=== PATIENT | female | born 1945 | race Caucasian/White ===

== ENCOUNTER 2016-12-28 05:44 | Inpatient (IN) | payer MEDICARE, MEDICAID ==
[~2016-12-28] VITALS: Ht 167.6 cm; Wt 91.0 kg
[2016-12-28] MEDS ORDERED: SOD CHLORIDE 0.9% 500 ML IV STA (06:19)
--- NOTE | 2016-12-28 06:51 | RADRPT ---
PROCEDURE: CT Brain without. CLINICAL INDICATION: Syncope TECHNIQUE: A CT of the brain was performed utilizing axial sections from the skull base through th e vertex without contrast. The scan was reviewed in soft tissue brain and high frequency resolution bone algorithm windows. Images were reviewed on a high-resolution PACS workstation. The exam CTDI = 45.01 mGy, and the DLP = 720.23 mGy-cm. One or more of the following dose reduction techniques w ere used: Automated exposure control, adjustment of the mA and / or kV according to patient size, o r use of iterative reconstruction technique. COMPARISON: None available FINDINGS: The ventricles are normal in size and midline in position. There is no intracranial hemorrhage, mid line shift, or mass effect. No abnormal extra-axial fluid collections are identified. There is min eralization of the basal ganglia. The rodriguez-white differentiation is well preserved. The basal cist erns are patent. Multiple densities are seen within the left cerebellar hemisphere measuring approxi mately 100 HU. The visualized portions of the orbits are unremarkable. The paranasal sinuses and mastoid air cells are clear. No calvarial fracture or abnormality are identified. The soft tissues are unremarkable . IMPRESSION: 1. Multiple small densities within the left cerebellar hemisphere, likely reflecting calcifications , although only measuring approximate 100 HU. Blood products could have a similar appearance. Furt her evaluation with MRI is recommended. 2. Mineralization of the basal ganglia. 3. Otherwise, unremarkable head CT. Findings were discussed with Dr. Crooks on 12/28/2016 6:50:28 AM. RPTAT: HH .Razia Solares MD, MD Date Time Electronically viewed and signed by .Razia Solares MD, MD on 12/28/2016 06:50 .G/
--- NOTE | 2016-12-28 06:58 | RADRPT ---
PROCEDURE: XR Chest. CLINICAL INDICATION: Syncope TECHNIQUE: AP Portable chest. COMPARISON: No pertinent prior examinations were submitted for comparison. FINDINGS: The cardiomediastinal silhouette is normal. The aorta is normal. No focal consolidation, pleural eff usion or pneumothorax is seen. The osseous structures are intact. IMPRESSION: No radiographic evidence of acute cardiopulmonary disease. RPTAT: HCNS Physician Jay Date Time Electronically viewed and signed by Nilton Mcintosh Physician on 12/28/2016 06:58 CS/
[2016-12-28 07:15] LABS: BASOPHILS % 0.2 % (0.0-2.0); HEMATOCRIT 23.1 % (37.0-47.0); HEMOGLOBIN 7.6 g/dl (12.0-16.0); LYMPHOCYTES # 1.7 10^3/ul (0.8-2.9); LYMPHOCYTES % 17.3 % (15.0-51.0); MEAN CORPUSCULAR HEMOGLOBIN 30.3 pg (29.0-33.0); MEAN CORPUSCULAR HGB CONC 32.9 g/dl (32.0-37.0); MEAN PLATELET VOLUME 10.9 fl (7.4-10.4); MONOCYTE # 0.4 10^3/ul (0.3-0.9); MONOCYTES % 4.3 % (0.0-11.0); NUCLEATED RED BLOOD CELLS% 0.2 /100WBC (0.0-0.0); PLATELET COUNT 147 10^3/UL (140-415); RED BLOOD COUNT 2.51 10^6/ul (4.20-5.40); RED CELL DISTRIBUTION WIDTH 14.6 % (11.5-14.5)
--- NOTE | 2016-12-28 07:22 | ERA ---
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 This is a 71-year-old female with a history of hyperlipidemia who presents with syncope versus seizure. The family is somewhat limited historian. They state around midnight the patient got up and was trying to go to the bathroom and fell to the ground. They are unsure if she had syncope. The patient cannot adequately describe what happened. She denied any prodrome of chest pain or shortness of breath. The states that he wanted to bring her to the hospital but she wanted to sleep. Again at 5 AM she felt faint and was helped to the ground. At that time the states that her eyes rolled into the back of her head and she may have had shaking but this lasted less than 1 minute and the patient did not have a postictal state. However at this time the patient is only alert and oriented to person and place. She denies any headache chest pain or shortness of breath , no neck pain. No history of seizures. ROS All systems reviewed and are negative except as per history of present illness. Allergies Allergies: Coded Allergies: No Known Allergy (Unverified , 12/28/16) PMhx/Soc Medical and Surgical Hx: pt denies Surgical Hx Hx Respiratory Disorders: No Hx Cardiac Disorders: Yes (high cholesterol) Hx Psychiatric Problems: No Hx Miscellaneous Medical Probl: No Hx Alcohol Use: No Hx Substance Use: No Hx Tobacco Use: No Smoking Status: Never smoker FmHx Family History: No diabetes Physical Exam Vitals Vital Signs Date Time Temp Pulse Resp B/P Pulse Ox O2 Delivery O2 Flow Rate FiO2 12/28/16 11:52 98.3 64 17 138/74 99 12/28/16 10:00 98.3 63 17 141/77 99 12/28/16 08:00 98.3 68 17 118/71 99 12/28/16 05:58 98.3 98 17 121/73 99 Physical Exam General: Well-developed, no distress, appears to be slightly slow to respond Head: Normocephalic, atraumatic. Eyes: Pupils equally reactive, EOM intact ENT: Moist mucous membranes Neck: Supple, no lymphadenopathy, No midline tenderness, deformities, step-offs to the cervical spine, full active and passive range of motion without midline pain. Respiratory: Lungs clear bilaterally, no distress Cardiovascular: RRR, no murmurs, rubs, or gallops Abdominal: Soft, non-tender, non-distended, no peritoneal signs : Deferred MSK: No edema, no unilateral swelling, 5/5 strength Neurologic: Alert and oriented To person and place appears to be somewhat slow to respond, moving all extremities, normal speech, no focal weakness, no cerebellar signs Skin: No rash, No evidence of blunt head trauma or other blunt trauma to the extremities or thorax Psych: Normal mood Result Diagram: 12/28/1625 12/28/1625 Results 24 hrs Laboratory Tests Test 12/28/16 06:24 12/28/16 06:25 Bedside Glucose 307mg/dL White Blood Count 10.010^3/ul Red Blood Count 2.5110^6/ul Hemoglobin 7.6g/dl Hematocrit 23.1% Mean Corpuscular Volume 92.0fl Mean Corpuscular Hemoglobin 30.3pg Mean Corpuscular Hemoglobin Concent 32.9g/dl Red Cell Distribution Width 14.6% Platelet Count 69874^3/UL Mean Platelet Volume 10.9fl Neutrophils % 77.0% Lymphocytes % 17.3% Monocytes % 4.3% Eosinophils % 0.0% Basophils % 0.2% Nucleated Red Blood Cells % 0.2/100WBC Neutrophils # (Manual) 7.710^3/ul Lymphocytes # 1.710^3/ul Monocytes # 0.410^3/ul Eosinophils # 0.010^3/ul Basophils # 0.010^3/ul Nucleated Red Blood Cells # 0.010^3/ul Prothrombin Time 15.9Sec Prothrombin Time Ratio 1.2 INR International Normalized Ratio 1.26 Activated Partial Thromboplast Time 27.6Sec Sodium Level 144mmol/L Potassium Level 3.9mmol/L Chloride Level 108mmol/L Carbon Dioxide Level 21mmol/L Anion Gap 19 Blood Urea Nitrogen 27mg/dl Creatinine 0.65mg/dl Glucose Level 294mg/dl Calcium Level 8.5mg/dl Ammonia 21umol/l Troponin I < 0.012ng/ml Free Thyroxine Index 1.02ug/ml Thyroxine (T4) 3.7ug/dl Triiodothyronine (T3) Uptake 27.6% Ethyl Alcohol Level < 10.0mg/dl Current Medications Medications (Trade) Dose Ordered Sig/Yamilka Route PRN Reason Start Time Stop Time Status Last Admin Dose Admin Sodium Chloride (NS) 500 ml @ 500 mls/hr Q1H STAT IV 12/28/16 06:19 12/28/16 07:18 DC 12/28/16 07:23 Ondansetron HCl (Zofran Inj) 4 mg ER BRIDGE PRN IV NAUSEA AND/OR VOMITING 12/28/16 12:00 12/29/16 11:59 Acetaminophen (Tylenol Tab) 650 mg ER BRIDGE PRN PO MILD PAIN/FEVER 12/28/16 12:00 12/29/16 11:59 Procedures/MDM EKG, MONITORS, & DIAGNOSTIC IMAGING: EKG: I reviewed and interpreted a 12-lead EKG. Rhythm: Normal sinus rhythm Ectopy: None Intervals: No abnormalities ST segments: No elevations or depressions T waves: No contiguous inversions Chest x-ray: I reviewed and interpreted a 1 view of the chest Mediastinum: No enlargement Cardiac silhouette: No cardiomegaly Airspace: Clear lung espinal bilaterally without evidence of pneumothorax Bones: No evidence of fracture CT brain: IMPRESSION: 1. Multiple small densities within the left cerebellar hemisphere, likely reflecting calcifications, although only measuring approximate 100 HU. Blood products could have a similar appearance. Further evaluation with MRI is recommended. 2. Mineralization of the basal ganglia. 3. Otherwise, unremarkable head CT. Findings were discussed with Dr. Crooks on 12/28/2016 6:50:28 AM. MRI brain IMPRESSION: 1. 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 2. No acute infarct. RPTAT: EE LAB INTERPRETATION: Anemia MEDICAL DECISION MAKING: The patient presents with syncope versus seizure. History is somewhat limited and difficult to ascertain. However, the patient does seem somewhat confused. Seizure remains on the differential. She has never had a seizure before. No fevers to suggest meningitis. Patient has no evidence of blunt head trauma or C -spine injury. CT of the brain will need needed. Additionally concern for possible syncope. Patient does have anemia. Family has reported some melanotic stools in the past but none recently. She denies any hematemesis. This is likely subacute process. Unclear if this is related to her syncopal episode recently. At this time no evidence of active GI bleed. Hemodynamics are stable. The patient CT brain shows calcifications versus hemorrhage. Given the patient' s potential fall and MRI of the brain has been requested by radiology. I believe this is reasonable. Given low concern for acute intracranial hemorrhage I will hold on neurosurgery consultation until MRI is complete. A Stat MRI has been ordered. The radiologist stated that this is more likely calcification and unlikely to be hemorrhage. ER COURSE: The patient did have an episode of melanotic stool here in the emergency room. She has no hematemesis. No history of peptic ulcer disease or alcohol. The patient does have anemia but is hemodynamically stable. At this time no indication for transfusion. Continue to monitor. No indication for CT of the abdomen and pelvis that she has a benign abdominal exam. The patient will likely benefit from GI consultation as an inpatient with endoscopy and colonoscopy. The patient did have a CT brain that was questionable for possible hemorrhage however MRI shows no acute process. I kept the patient and/or family informed of laboratory and diagnostic imaging results throughout the emergency room course. DISPOSITION PLAN: Telemetry admission for management of syncope CONSULTATION: Accepting care team and consultations: I discussed the current laboratory data, diagnostic imaging and emergency care provided. Admitting team: Dr. Linder Admitting team indication: Insurance directed Consulting services: Nonemergent GI consultation by admitting team] Departure Diagnosis: Primary Impression: Syncope Qualified Code: R55 - Syncope, unspecified syncope type Additional Impressions: Anemia Qualified Code: D64.9 - Anemia, unspecified type GI bleed Qualified Code: K92.2 - Gastrointestinal hemorrhage, unspecified gastrointestinal hemorrhage type Condition: Stable KITTY CROOKS MD Dec 28, 2016 07:22
[2016-12-28 07:31] LABS: INR 1.26; PROTIME 15.9 Sec (12.2-14.2); PT RATIO 1.2
[2016-12-28 07:32] LABS: PARTIAL THROMBOPLASTIN TIME 27.6 Sec (25.0-35.0)
[2016-12-28 07:34] LABS: ANION GAP 19 (8-16); BLOOD UREA NITROGEN 27 mg/dl (7-20); CALCIUM 8.5 mg/dl (8.4-10.2); CARBON DIOXIDE 21 mmol/L (21-31); CHLORIDE 108 mmol/L (97-110); CREATININE 0.65 mg/dl (0.44-1.00); GLUCOSE 294 mg/dl (70-220); POTASSIUM 3.9 mmol/L (3.5-5.1); SODIUM 144 mmol/L (135-144)
[2016-12-28 07:41] LABS: ETHANOL < 10.0 mg/dl
[2016-12-28 07:48] LABS: TROPONIN-I < 0.012 ng/ml (0.00-0.12)
[2016-12-28 08:15] LABS: T3 UPTAKE 27.6 % (23.5-40.5)
--- NOTE | 2016-12-28 11:00 | RADRPT ---
PROCEDURE: MR Brain without intravenous contrast CLINICAL INDICATION: Syncope. Stroke. COMPARISON: CT 12/28/2016. TECHNIQUE: Multiplanar multi-sequence images of the brain were obtained. Images acquired on a 3.0 T esla magnet. FINDINGS: Parenchyma: There is a developmental venous the left cerebellar hemisphere extending to the area of calcification and density seen on CT. Given the presence of a developmental venous anomaly, this de nsity may represent a cavernous malformation. No acute hemorrhage, infarction, or mass. Mild amount of periventricular and subcortical white matter FLAIR hyperintensity, a nonspecific finding often a ssociated with chronic microangiopathy. The basal ganglia are mineralized. Ventricles: Mild generalized volume with proportionate ex vacuo ventricular dilation. . Extra-axial spaces: No herniation or midline shift. Orbits: Normal. Major intracranial flow voids: Preserved. Paranasal sinuses: Clear. Mastoids and middle ears: Clear. Bones: Normal. Extracranial soft tissues: Normal. Additional comment: None. IMPRESSION: 1. Developmental venous anomaly and probable cavernous malformation within the left cerebellar matthew sphere. 2. No acute infarct. RPTAT: EE Physician Steven Date Time Electronically viewed and signed by Physician Steven on 12/28/2016 10:43 LG/
[2016-12-28] MEDS ORDERED: ACETAMINOPHEN 325 MG TAB PO PRN (12:00)
[2016-12-28] MEDS ORDERED: ONDANSETRON 4 MG INJ IV PRN ×2 (12:00→13:00)
[2016-12-28] MEDS: morphine 2 MG INJ IV PRN (12:42)
--- NOTE | 2016-12-28 12:47 | HP ---
Date/Time of Note Date/Time of Note DATE: 12/28/16 TIME: 12:47 Assessment/Plan VTE Prophylaxis VTE Prophylaxis Intervention: SCD's Assessment/Plan Assessment/Plan This a 71-year-old female who was brought to the emergency room after patient fell on her abdomen with feeling weak with possible seizure-like activities and hematemesis. 1. GI bleed/hematemesis/hematochezia. Rule out etiology like ulcers vs varices vs hemorrhoids vs others -Strict n.p.o., IV fluids, IV Protonix and serial H&H monitor and transfuse as indicated. Hemoglobin 7.6, however we are going to proceed with 1 unit of PRBC as she is having active bleeding at this time. -Obtain CT abd/pelvis and Consult GI for endoscopy/colonoscopy evaluation -Hold anticoagulants 2. Normocytic anemia, likely Acute on chronic anemia 2/2 blood loss anemia secondary to #1. -Treatment as per above. We will also obtain iron panel. 3. Status post fall on abdomen with Syncope Vs Presyncope -Rule out syncopal etiologies-Neurogenic vs cardiac. CT/MRI negative for stroke. Rule out -We will obtain contrast CT of abdomen and chest to rule out any acute organ/ vessel injury -EEG and neuro consult 4. History of Dyslipidemia, off treatment. Will obtain lipid panel and treat accordingly. 5. Hyperglycemia. Rule out DM. -Add A1C to AM labs (prior transfusion) and treat accordingly -Insulin while in house. 6. Questionable encephalopathy,mild. -F/u with CT abdomen and EEG. 7. Obesity. Will advise on therapeutic lifestyle changes upon discharge. Also obtain A1c. VT prophylaxis: SCDs PUD prophylaxis: Protonix Plan: Patient will be admitted to inpatient telemetry floor. She will have serial H&H monitor and will transfuse as indicated. Patient will have GI evaluation and neurology evaluation in-house. We will also obtain EEG to rule out any seizures. We will also continue neurochecks and place patient on a seizure precaution. We will also obtain a.m. baseline labs. Of the management depend on clinical course, further studies and input from consultants. Approximately 60 minutes was spent on this history and physical. Case discussed with . HPI/ROS Admit Date/Time Admit Date/Time Hx of Present Illness This is a 71-year-old female who is also a poor historian with past medical history of mild dyslipidemia, who was brought by paramedics to the emergency room after patient fell on her abdomen and feeling weak and tired afterwards. Patient is somewhat encephalopathic on presentation and is not able to provide much information . She cannot adequately give any history and she is unsure whether she lost consciousness or not. History collected from spouse. As per patient's , she had one-time episode of bloody vomiting and seizure-like activities her eyes rolled into the back of her head with mild shaking which lasted less than a minute. Patient did not have any chest pain, palpitation, shortness of breath, or headache. She denied hitting her head. After the fall , patient continued to have excruciating abdominal pain. Patient did not have any history of anemia or seizures. She denied any history of diabetes or other medical illness. In the emergency room, patient had episode of bloody stool. Initial labs showed hemoglobin 7.6, hematocrit 23.1, BUN 27, glucose 307 . Chest x-ray negative for any acute cardiopulmonary disease. Brain CT with Multiple small densities within the left cerebellar hemisphere, likely reflecting calcifications, although only measuring approximate 100 HU and an MRI was recommended. MRI brain showed no acute infarct, hemorrhage or mass. 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 Vital signs within defined limits. ` ROS A 12 point review of system was assessed and is negative other than what is mentioned in HPI. PMH/Family/Social Past Medical History See HPI Past Surgical History See HPI Social History Denied any history of alcohol, smoking or illicit drug use. Smoking Status: Never smoker Exam/Review of Systems Vital Signs Vitals Vital Signs Date Time Temp Pulse Resp B/P Pulse Ox O2 Delivery O2 Flow Rate FiO2 12/28/16 11:52 98.3 64 17 138/74 99 Exam Exam General: Obese female, not in any acute distress . HEENT: Normocephalic, Atraumatic, No laceration or hematoma; Eyes: PEERL, Conjunctiva clear, Anicteric sclera Neck: Supple without any lymphadenopathy, nontender, no JVD, no carotid bruits, trachea midline, no thyromegaly Cardiac: S1, S2 auscultated, regular rhythm and rate, no mumurs or gallop Pulmonary: Normal respiratory effort. Chest clear to auscultation bilaterally, no adventitious breath sounds GI: Abdomen obese to inspection. Soft, non tender, non- distended, no masses, no rebound tenderness or guarding. Bowel sounds active on all four quadrants Genitourinary: Deferred Extremities: No cyanosis, clubbing, or edema. Pulses [2+] bilaterally. Full ROM on all four extremities. No focal weakness appreciated. Neurologic: Awake and orientedx2- Mildly confused. Skin: Dry, and intact. No ecchymosis, no rashes, or lesions Labs Result Diagram: 12/28/1662412/28/16624 Medications Medications Current Medications Morphine Sulfate (morphine) 2 mg Q4H PRN IV PAIN Last administered on t 12:42; Admin Dose 2 MG; Start 12/28/16 at 12:30 MARVA MENA NP Dec 28, 2016 12:47
[2016-12-28] MEDS ORDERED: NACL 0.9% 3 ML SYG IV SCH (13:00)
[2016-12-28] MEDS ORDERED: morphine 2 MG INJ IV PRN (13:00)
[2016-12-28] MEDS ORDERED: IOHEXOL 300MG/ML 150 ML BTL ONE (14:17)
[2016-12-28] MEDS ORDERED: SOD CHLORIDE 0.9% 100 ML ONE (14:17)
[2016-12-28] MEDS ORDERED: SOD CHLORIDE 0.9% 250 ML IV* ONE (14:43)
--- NOTE | 2016-12-28 15:11 | RADRPT ---
PROCEDURE: CT Chest, Abdomen and Pelvis. CLINICAL INDICATION: Fall with chest and abdominal pain TECHNIQUE: CT scan of the chest, abdomen, and pelvis with contrast was performed on the [employer] [address] scanner. The patient was scanned following the uncomplicated intravenous administra tion of 100 cc of Omnipaque-300 intravenous contrast. Coronal and sagittal reformatted images were obtained from the axial source images. The images were reviewed on a high-resolution PACS workstatio n. The CTDI vol is 15.32 mGy and the DLP is 1152.06 mGy-cm. COMPARISON: None. FINDINGS: CT chest: Mild bibasilar atelectasis is seen. No focal opacification, effusion, pneumothorax, edema, or nodule s are seen. There is no acute infiltrate. The mediastinum is unremarkable without evidence for mass or lymphadenopathy. The vascular structur es of the mediastinum are normal in course and caliber. No abnormally enlarged lymph nodes in the m ediastinum or hilum is seen. The heart size is normal without evidence for pericardial thickening o r effusion. The axillary regions, subpectoral regions, and supraclavicular regions are all unremarka ble. Diffuse osteopenia is seen. Degenerative spondylosis of the thoracic spine is seen. Collateral vessels are seen in the gastroesophageal region. CT abdomen: The liver is without intrahepatic biliary dilatation. Cirrhotic liver morphology is seen. The liver is heterogeneous in attenuation. An ill-defined mass is suggested in the right hepatic lobe measur ing 3.2 x 3.1 cm in size. A recanalized periumbilical vein is seen. The portal vein is patent. The spleen is normal in size and homogeneous in density. Collateral vessels are seen in the gastrohepat ic region. The stomach is grossly unremarkable. The pancreas as visualized is normal. The gallbla dder wall is thickened and is nonspecific in appearance. No common bile duct dilatation is seen. T he adrenal glands are symmetric and normal. The kidneys are symmetrically unremarkable as well. No renal calculus or obstructive uropathy or mass lesion is seen. The aorta is of normal caliber. Aort ic calcifications are seen. . There is no retroperitoneal lymphadenopathy. The petty hepatis region is clear. The large bowel is stool-filled. Sigmoid diverticulosis is seen without evidence of diverticulitis. The small and large bowel and mesentery, as visualized, are otherwise unremarkable. The normal appendix is identified. CT pelvis: The uterus is absent. The pelvic sidewalls and inguinal regions are clear. The urinary bladder is unremarkable. No mass, lymphadenopathy, or free fluid is seen. No acute inflammation is seen. Diff use osteopenia is seen. Degenerative spondylosis of the lumbar spine is seen. No osteolytic or oste oblastic lesion is detected. IMPRESSION: 1. Cirrhosis with evidence of portal hypertension as characterized by collateral vessels as detaile d above. 2. Heterogeneous liver with the suggestion of an ill-defined mass in the right hepatic lobe which i n the setting of a cirrhotic liver is worrisome for hepatocellular carcinoma. Further evaluation wi th a dynamic contrast-enhanced MRI of the liver is suggested. 3. Stool filled large bowel. 4. Nonspecific gallbladder wall thickening. 5. Sigmoid diverticulosis without evidence of diverticulitis. RPTAT: HPNM Physician Kareen Date Time Electronically viewed and signed by Physician Kareen on 12/28/2016 15:11 /
[2016-12-28] MEDS: INSULIN ASPART [NOVOLOG] 3 ML PEN SC SCH ×2 (16:53→21:50)
[2016-12-28] MEDS: SOD CHLORIDE 0.9% 1,000 ML IV SCH (17:15)
--- NOTE | 2016-12-28 18:11 | RADRPT ---
Echocardiogram Report Patient Name: NOREEN MARIE Gender: Female Date: 1945 Study Date: 28-Dec-2016 Billboard Poster Helper: Wilner [facility] Location: [facility] [place] Ref. Physician: MARVA MENA Quality: Adequate Procedures: Transthoracic echocardiogram with complete 2D, M-Mode, and doppler examination. Indications: Syncope. 2D/M Mode Doppler Measurement Value Normal Ranges Measurement Value Normal Ranges LVIDd 2D 4.0 3.5 - 5.6 cm AV Peak Fredy 1.7 m/sec LVIDs 2D 2.7 2.1 - 4.1 cm AV Peak PG 12.0 mmHg FS 2D 32.0 % LVOT Peak Fredy 1.0 m/sec LVPWd 2D 1.3 0.6 - 1.1 cm LVOT Peak PG 4.0 mmHg IVSd 2D 1.3 0.6 - 1.1 cm MV E Peak Fredy 0.7 m/sec IVS/LVPW 2D 1.0 MV A Peak Fredy 0.8 m/sec AoR Diam 2D 2.4 2.0 - 3.7 cm MV E/A 1.0 LA/Ao 2D 1 0 - 1 MV Decel Time 204 msec EDV 2D 62.6 cm3 MV E/A 1.0 ESV 2D 19.7 cm3 LA Dimen 2D 2.6 2.3 - 4.0 cm Findings Left Ventricle: Normal left ventricular systolic function. Normal left ventricular cavity size. Mild concentric left ventricular hypertrophy. Ejection fraction is visually estimated at 60 %. Abnormal Diastolic Function. Right Ventricle: Normal right ventricular size. Normal right ventricular systolic function. Left Atrium: The left atrium is normal in size. Right Atrium: The right atrium is normal in size. Mitral Valve: Mild mitral leaflet calcification. Mild mitral annular calcification. Trace mitral regurgitation. Aortic Valve: Normal appearance of the aortic valve. No significant aortic stenosis or insufficiency. Tricuspid Valve: Normal appearance of the tricuspid valve. Unable to obtain RVSP due to minimal presence of tricuspid regurgitation. There is trace tricuspid regurgitation. Pulmonic Valve: Pulmonic valve not well visualized. There is trace pulmonic regurgitation. Pericardium: Normal pericardium with no significant pericardial effusion. Aorta: Normal aortic root. IVC: Normal size and poor respiratory collapse consistent with elevated right atrial pressure. Conclusions 1.Normal left ventricular systolic function. Normal left ventricular cavity size. Mild concentric left ventricular hypertrophy. Ejection fraction is visually estimated at 60 %. Abnormal Diastolic Function. 2.Mild mitral leaflet calcification. Mild mitral annular calcification. Trace mitral regurgitation. 3.Normal appearance of the tricuspid valve. Unable to obtain RVSP due to minimal presence of tricuspid regurgitation. There is trace tricuspid regurgitation. 4.Pulmonic valve not well visualized. There is trace pulmonic regurgitation. Electronically Signed By: vEgeny Miller 28-Dec-2016 18:10:58 -0700 Patient Name: NOREEN MARIE Study Date: 28-Dec-2016 [id number]
[2016-12-28 18:48] LABS: IRON 155 ug/dl (35-150)
[2016-12-28 18:57] LABS: TOTAL IRON BINDING CAPACITY 317 ug/dl (241-421)
[2016-12-28 19:11] VITALS: TEMP 98.6
[2016-12-28 19:30] LABS: HEMATOCRIT 21.2 % (37.0-47.0); HEMOGLOBIN 7.1 g/dl (12.0-16.0)
[2016-12-28 21:16] VITALS: PULSE 75
[2016-12-28 21:34] VITALS: BP 117/58; RESP 16
[2016-12-28] MEDS: PANTOPRAZOLE 40 MG INJ IV SCH (21:39)
--- NOTE | 2016-12-28 21:47 | CONS ---
Date/Time of Note Date/Time of Note DATE: 12/28/16 TIME: 21:46 Assessment/Plan Assessment/Plan Chief Complaint/Hosp Course neuroconsult dictated [id number]. Thanks Problems: CRISTIAN HOWELL MD Dec 28, 2016 21:47
[2016-12-29] VITALS (12 sets, daily range): BP systolic 106–144; BP diastolic 53–67; PULSE 51–67; RESP 16–19; Ht 167.6 cm; Wt 91.0 kg
[2016-12-29] MEDS: SOD CHLORIDE 0.9% 1,000 ML IV SCH ×2 (01:10→13:02)
[2016-12-29] MEDS: INSULIN ASPART [NOVOLOG] 3 ML PEN SC SCH ×6 (01:22→21:14)
[2016-12-29] MEDS: ACCU-CHEK XX SCH (01:59)
--- NOTE | 2016-12-29 05:00 | CONS ---
DATE OF ADMISSION: 12/28/2016 DATE OF CONSULTATION: 12/28/2016 HISTORY OF PRESENT ILLNESS: Patient is a 71-year-old lady, who last night got up to go to the bathroom and fell, possible loss of consciousness. When fell, hit her abdominal area against stationary bike. She was weak and had several episodes of bloody vomiting. Patient's son is providing details of the history; a little later in the morning, while on the toilet patient had episode of either fainting or near fainting when she became less responsive, pale, limp, and had a few seconds of crooked face. Per chart, during last episode she has had some mild shaking. Son denied any tremulousness or convulsions. On admission, shows hemoglobin 7.6, hematocrit 23. BUN 27, glucose 307. MRI of the brain shows no acute abnormality, developmental venous anomalies and cavernous malformations. CAT scan of the head was done as well. PAST MEDICAL HISTORY: Dyslipidemia. According to the son, the patient has occasional forgetfulness. SOCIAL HISTORY: No alcohol, tobacco, or drug use. FAMILY HISTORY: Noncontributory. LABORATORY: Patient had EKG which showed normal sinus rhythm. Patient has no previous history of seizures or syncope. Rest of her blood work was within normal limits. PT 15.9, PTT 27. Tox screen negative for alcohol. MEDICATION: The patient was put here on: 1. Protonix. 2. Insulin. 3. Zofran. 4. Morphine. Patient has no complaints currently. PHYSICAL EXAMINATION: VITAL SIGNS: Today, 98.6 temperature, 77 pulse, 18 respiration, 115/65 blood pressure. GENERAL APPEARANCE: The patient is not in acute distress. Lying in bed. HEENT: Normocephalic and atraumatic head. No carotid bruit, lymphadenopathy or thyromegaly. LUNGS: Clear to auscultation bilaterally. HEART: Normal cardiac rhythm and sounds. ABDOMEN: Soft. EXTREMITIES: No cyanosis, clubbing, or edema. NEUROLOGIC: She is awake, alert, and oriented x1. On several questioning, she was able to state that she is in some medical clinic, but she is not oriented to place, further or to time. Fluent speech. Cranial nerve examination shows intact visual espinal bilaterally. Pupils round and reactive to light from 3-2 mm bilaterally. Extraocular movements intact without nystagmus. Symmetrical face. Preserved facial strength and sensation. Tongue was in midline. Palate elevates symmetrically. Motor strength preserved in all extremities. Normal bulk, tone, and strength. Sensory examination intact to light touch and pain. Deep tendon reflexes 2+ upper extremities and knees. Absent ankle jerks. Equivocal corresponds to plantar stimulation bilaterally. Coordination is preserved on [id number] testing. No dysmetria or tremor. Gait was not assessed. IMPRESSION: Several episodes of syncope/presyncope associated with hematemesis, dehydration and severe anemia. Unlikely to be primary seizures. Electroencephalogram mildly abnormal secondary to generalized slowing consistent with encephalopathy, but no epileptiform activity was seen. Continue current treatment. Thank you much for this interesting consultation. Dictated By: Ish Alberot MD /girma/jong /Document#: [id number] CARLOS MANUEL
--- NOTE | 2016-12-29 05:20 | PRO ---
DATE OF PROCEDURE: 12/28/2016 PROCEDURE PERFORMED: EEG. IDENTIFICATION: This is a 71-year-old lady with syncope. DESCRIPTION OF PROCEDURE: Routine EEG was recorded digitally. [id number] and [id number]-[id number] montages were recorded and reviewed. All impedances were measured and recorded. Disc electrodes were placed in accordance to International 10-20 system of electrode placement. FINDINGS: Symmetrically distributed background activity was seen ranging in frequency between 8-9 cycles per second of low to medium amplitude. This activity intermixes or at time replaced by slower waves 4-6 cycles per second. Photic stimulation produces no definite driving. No epileptiform transients were seen. No signs of ongoing electrographic seizures. No lateralized slowing observed. IMPRESSION: Mildly abnormal study secondary to background slowing, which could reflect presence of encephalopathy, possibly toxic metabolic in etiology. Please correlate clinically. Dictated By: Ish Alberto MD /girma/floresita /Document#: [id number]
[2016-12-29] MEDS: PANTOPRAZOLE 40 MG INJ IV SCH (05:26)
[2016-12-29 07:45] LABS: ABNORMAL IP MESSAGE 1; BASOPHILS % 0.3 % (0.0-2.0); EOSINOPHILS # 0.1 10^3/ul (0.0-0.5); EOSINOPHILS % 1.7 % (0.0-7.0); HEMATOCRIT 22.6 % (37.0-47.0); HEMOGLOBIN 7.5 g/dl (12.0-16.0); LYMPHOCYTES # 1.7 10^3/ul (0.8-2.9); LYMPHOCYTES % 28.9 % (15.0-51.0); MEAN CORPUSCULAR HEMOGLOBIN 30.2 pg (29.0-33.0); MEAN CORPUSCULAR HGB CONC 33.2 g/dl (32.0-37.0); MEAN CORPUSCULAR VOLUME 91.1 fl (82.0-101.0); MEAN PLATELET VOLUME 10.5 fl (7.4-10.4); MONOCYTE # 0.3 10^3/ul (0.3-0.9); MONOCYTES % 5.4 % (0.0-11.0); NEUTROPHILS % 62.8 % (39.0-77.0); NUCLEATED RED BLOOD CELLS% 0.3 /100WBC (0.0-0.0); PLATELET COUNT 97 10^3/UL (140-415); RED BLOOD COUNT 2.48 10^6/ul (4.20-5.40); RED CELL DISTRIBUTION WIDTH 15.5 % (11.5-14.5); WHITE BLOOD COUNT 5.9 10^3/ul (4.8-10.8)
[2016-12-29 08:00] LABS: POSITIVE DIFF @See below
[2016-12-29 08:11] LABS: ALBUMIN 2.9 g/dl (3.3-4.9); ALBUMIN/GLOBULIN RATIO 0.85; BILIRUBIN,INDIRECT 0.7 mg/dl (0-1.1); BILIRUBIN,TOTAL 0.7 mg/dl (0.2-1.3); CALCIUM 8.1 mg/dl (8.4-10.2); CHOL/HDL RATIO 5.3 RATIO; CREATININE 0.69 mg/dl (0.44-1.00); MAGNESIUM 2.2 mg/dl (1.7-2.5); POTASSIUM 3.6 mmol/L (3.5-5.1); TOTAL PROTEIN 6.3 g/dl (6.1-8.1)
[2016-12-29 09:15] LABS: THYROID STIMULATING HORMONE 2.67 MIU/L (0.465-4.680)
--- NOTE | 2016-12-29 10:23 | PN ---
Date/Time of Note Date/Time of Note DATE: 12/29/16 TIME: 10:04 Assessment/Plan VTE Prophylaxis VTE Prophylaxis Intervention: SCD's Lines/Catheters IV Catheter Type (from Nrs): Peripheral IV Assessment/Plan Chief Complaint/Hosp Course 1. GI bleed/hematemesis/hematochezia. Rule out etiology including possible variceal bleed(CT with cirrhosis and portal HTN) vs GI ulcers vs hemorrhoids vs others -Strict n.p.o., IV fluids, IV Protonix and serial H&H monitor and transfuse as indicated. -Pending GI for endoscopy/colonoscopy evaluation -Hold anticoagulants 2. Normocytic anemia, likely Acute on anemia of chronic illness 2/2 blood loss anemia secondary to #1. Hemoglobin remains relatively stable at this time. -We will continue to check H&H closely. We will transfuse as indicated. 3. Questionable right hepatic lobe ill-defined mass with #4, concerning for hepatocellular carcinoma. -We will proceed with liver protocol MRI with enhanced contrast. -Obtain AFP, Hep panel, tumor markers and consider heme/oncology evaluation. 4.Non-alcoholic Liver Cirrhosis with portal hypertension. No evidence of ascites -F/u GI recs 5. Status post Syncope Vs Presyncope. CT and MRI negative for any acute intracranial pathology. ACS ruled out with serial trops/EKG. Symptoms resolved. EEG with no epileptic activities -f/u neuro recs. 6. 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 A1C 8.1 -DM eval noted. Blood transfusion can alter A1C to yield a false low number but cannot give false "high" result. For that, we are going to obtain a glycosylated albumin which reflects glycemic control over 2-3 weeks. -Consider starting Metformin after contrast studies -Lantus 14 units starting today and titrate based on requirement along with ISS - Wouldn't recommend premeal at this time as patient is being introduced to insulin first time and her blood sugar level has been stabilizing with corrective insulin. 7. Encephalopathy, possibly hepatic. Currently at baseline -Will monitor 8.History of Dyslipidemia, off treatment. Lipid panel noted and will start on Fishoil. LDL under good control. 9. Obesity. Will advise on therapeutic lifestyle changes upon discharge. VT prophylaxis: SCDs PUD prophylaxis: Protonix PLAN:F/u with consultants recs. Monitor HH closely. Case discussed with DR.Rahi Problems: Subjective 24 Hr Interval Summary Free Text/Dictation Patient remains awake and oriented. There is no further upper or lower GI bleed episodes. Hemoglobin remains relatively stable. Exam/Review of Systems Vital Signs Vitals Vital Signs Date Time Temp Pulse Resp B/P Pulse Ox O2 Delivery O2 Flow Rate FiO2 12/29/16 08:16 60 12/29/16 07:54 98.3 18 122/62 98 Intake and Output 12/28/16 12/28/16 12/29/16 15:00 23:00 07:00 Output Total 300 ml Balance -300 ml Exam General: Obese female, not in any acute distress . HEENT: Normocephalic, Atraumatic, No laceration or hematoma; Eyes: PEERL, Conjunctiva clear, Anicteric sclera Neck: Supple without any lymphadenopathy, nontender, no JVD, no carotid bruits, trachea midline, no thyromegaly Cardiac: S1, S2 auscultated, regular rhythm and rate, no mumurs or gallop Pulmonary: Normal respiratory effort. Chest clear to auscultation bilaterally, no adventitious breath sounds GI: Abdomen obese to inspection. Soft, non tender, non- distended, no masses, no rebound tenderness or guarding. Bowel sounds active on all four quadrants Genitourinary: Deferred Extremities: No cyanosis, clubbing, or edema. Pulses [2+] bilaterally. Full ROM on all four extremities. No focal weakness appreciated. Neurologic: Awake and orientedx2- Mildly confused. Skin: Dry, and intact. No ecchymosis, no rashes, or lesions Results Result Diagram: 12/29/16 0709 12/29/16 0709 Results 24 hrs Laboratory Tests Test 12/28/16 15:59 12/28/16 16:25 12/28/16 16:51 12/28/16 19:15 Bedside Glucose 258 H 256 H Iron Level 155 H Total Iron Binding Capacity 317 Percent Iron Saturation 49 Hemoglobin 7.1 L Hematocrit 21.2 L Troponin I < 0.012 Test 12/28/16 21:42 12/28/16 22:52 12/29/16 01:19 12/29/16 05:22 Bedside Glucose 234 H 219 187 Troponin I < 0.012 Test 12/29/16 07:08 12/29/16 07:09 12/29/16 09:42 Hemoglobin A1c 8.1 H Troponin I < 0.012 White Blood Count 5.9 # Red Blood Count 2.48 L Hemoglobin 7.5 L Hematocrit 22.6 L Mean Corpuscular Volume 91.1 Mean Corpuscular Hemoglobin 30.2 Mean Corpuscular Hemoglobin Concent 33.2 Red Cell Distribution Width 15.5 H Platelet Count 97 #L Mean Platelet Volume 10.5 H Neutrophils % 62.8 Lymphocytes % 28.9 Monocytes % 5.4 Eosinophils % 1.7 Basophils % 0.3 Nucleated Red Blood Cells % 0.3 H Neutrophils # (Manual) 3.7 Lymphocytes # 1.7 Monocytes # 0.3 Eosinophils # 0.1 Basophils # 0.0 Nucleated Red Blood Cells # 0.0 Sodium Level 147 H Potassium Level 3.6 Chloride Level 112 H Carbon Dioxide Level 24 Anion Gap 15 Blood Urea Nitrogen 17 # Creatinine 0.69 Glucose Level 166 # Calcium Level 8.1 L Phosphorus Level 3.0 Magnesium Level 2.2 Total Bilirubin 0.7 Direct Bilirubin 0.00 Indirect Bilirubin 0.7 Aspartate Amino Transf (AST/SGOT) 59 H Alanine Aminotransferase (ALT/SGPT) 47 Alkaline Phosphatase 113 Total Protein 6.3 Albumin 2.9 L Globulin 3.40 H Albumin/Globulin Ratio 0.85 Triglycerides Level 261 H Cholesterol Level 160 LDL Cholesterol, Calculated 78 HDL Cholesterol 30 L Cholesterol/HDL Ratio 5.3 Thyroid Stimulating Hormone (TSH) 2.670 Bedside Glucose 185 Medications Medications Current Medications Morphine Sulfate 2 mg 2 mg Q4H PRN IV PAIN Last administered on 12/28/16 12:42 ; Admin Dose 2 MG; Start 12/28/16 at 12:30 Sodium Chloride (NS) 1,000 ml @ 80 mls/hr [id number] IV Last administered on 12/28 17:15; Admin Dose 80 MLS/HR; Start 12/28/16 at 12:40 Ondansetron HCl (Zofran Inj) 4 mg Q6H PRN IV NAUSEA AND/OR VOMITING; Start at 13:00 Morphine Sulfate (morphine) 2 mg Q4H PRN IV SEVERE PAIN LEVEL 7-10; Start 12/28 at 13:00 Pantoprazole (Protonix Iv) 40 mg DAILY@06 IV Last administered on 12/29/16 05: 26; Admin Dose 40 MG; Start 12/28/16 at 17:00 Diagnostic Test (Pha) (Accu-Chek) 1 XX ; Start 12/29/16 at 02:00 Insulin Aspart (Novolog Insulin Pen) NOVOLOG *MILD* ALGORI... Q4 SC Last administered on 12/29/16t 09:50; Admin Dose 2 UNIT; Start 12/28/16 at 17:00 Insulin Glargine (Lantus) 14 unit DAILY@08 SC ; Start 12/30/16 at 08:00 MARVA MENA NP Dec 29, 2016 10:19
[2016-12-29 10:57] LABS: ADD UMIC YES; UR ASCORBIC ACID NEGATIVE (NEGATIVE); UR BACTERIA FEW /HPF (NONE SEEN); UR BILIRUBIN (Dip) NEGATIVE (NEGATIVE); UR BLOOD (Dip) 3+ mg/dL (NEGATIVE); UR CLARITY SLIGHTLY CLOUDY (CLEAR); UR COLOR YELLOW (YELLOW); UR GLUCOSE (Dip) 1+ mg/dL (NEGATIVE); UR KETONES (Dip) NEGATIVE (NEGATIVE); UR LEUKOCYTE ESTERASE (Dip) NEGATIVE Leu/ul (NEGATIVE); UR NITRITE (Dip) NEGATIVE (NEGATIVE); UR RBC 1 /HPF (0-5); UR SPECIFIC GRAVITY (Dip) 1.035 (1.003-1.030); UR SQUAMOUS EPITHELIAL CELL FEW /HPF (FEW); UR TOTAL PROTEIN (Dip) NEGATIVE (NEGATIVE); UR UROBILINOGEN (Dip) 1+ mg/dL (NEGATIVE)
[2016-12-29 11:14] LABS: OPIATES Positive (NEGATIVE)
[2016-12-29 11:15] LABS: BARBITURATES Negative (NEGATIVE); BENZODIAZEPINES Negative (NEGATIVE); CANNABINOIDS Negative (NEGATIVE); COCAINE Negative (NEGATIVE)
[2016-12-29 13:36] LABS: HEMATOCRIT 22.9 % (37.0-47.0); HEMOGLOBIN 7.5 g/dl (12.0-16.0)
--- NOTE | 2016-12-29 14:30 | CONS ---
Date/Time of Note Date/Time of Note DATE: 12/29/16 TIME: 14:19 Assessment/Plan Assessment/Plan Additional Assessment/Plan 71 yo woman with hepatic cirrhosis of unclear etiology. She has some encephalopathy, so history is not entirely clear. There is no clear history of alcohol or hepatitis but I am not confident of the history I am getting now. Endoscopy is being planned for hematochezia but is not yet done. I will send an AFP but I would not use this result alone to diagnose hepatocellular carcinoma or to give treatment. Biopsy would be necessary for that. For now, the acute bleeding issues are more important to address. We will follow with you. Consultation Date/Type/Reason Admit Date/Time Date of Consultation: Dec 29, 2016 Type of Consultation: oncology Reason for Consultation abnormal CT Referring Provider: MARVA MENA NP Hx of Present Illness 71 yo woman with cirrhosis and abnormal area of liver on CT. Hepatocellular cancer raised as part of the differential diagnosis. PMH also notable for hematochezia, anemia, diabetes, obesity, dyslipidemia and weakness. Social History Smoking Status: Never smoker Exam/Review of Systems Vital Signs Vitals Vital Signs Date Time Temp Pulse Resp B/P Pulse Ox O2 Delivery O2 Flow Rate FiO2 12/29/16 12:11 98.4 64 19 130/67 98 Intake and Output 12/28/16 12/28/16 12/29/16 15:00 23:00 07:00 Output Total 300 ml Balance -300 ml Exam Constitutional: alert Head: normocephalic Eyes: other (pallor) ENMT: nl external ears & nose Neck: supple Respiratory: clear to auscultation Cardiovascular: regular rate and rhythm Gastrointestinal: non-tender, other (cannot palpate liver or spleen), soft Musculoskeletal: nl extremities to inspection Results Result Diagram: 12/29/16 1230 12/29/16 0709 Results 24 hrs Laboratory Tests Test 12/28/16 15:59 12/28/16 16:25 12/28/16 16:51 12/28/16 19:15 Bedside Glucose 258 H 256 H Iron Level 155 H Total Iron Binding Capacity 317 Percent Iron Saturation 49 Hemoglobin 7.1 L Hematocrit 21.2 L Troponin I < 0.012 Test 12/28/16 21:42 12/28/16 22:52 12/29/16 01:19 12/29/16 05:22 Bedside Glucose 234 H 219 187 Troponin I < 0.012 Test 12/29/16 07:00 12/29/16 07:08 12/29/16 07:09 12/29/16 09:42 Urine Color YELLOW Urine Clarity SLIGHTLY CLOUDY A Urine pH 6.0 Urine Specific [place] 1.035 H Urine Ketones NEGATIVE Urine Nitrite NEGATIVE Urine Bilirubin NEGATIVE Urine Urobilinogen 1+ H Urine Leukocyte Esterase NEGATIVE Urine Microscopic RBC 1 Urine Microscopic WBC 6 H Urine Squamous Epithelial Cells FEW Urine Bacteria FEW A Urine Hemoglobin 3+ H Urine Glucose 1+ H Urine Total Protein NEGATIVE Urine Opiates Screen Positive Urine Barbiturates Negative Urine Amphetamines Screen Negative Urine Benzodiazepines Screen Negative Urine Cocaine Screen Negative Urine Cannabinoids Negative Hemoglobin A1c 8.1 H Troponin I < 0.012 White Blood Count 5.9 # Red Blood Count 2.48 L Hemoglobin 7.5 L Hematocrit 22.6 L Mean Corpuscular Volume 91.1 Mean Corpuscular Hemoglobin 30.2 Mean Corpuscular Hemoglobin Concent 33.2 Red Cell Distribution Width 15.5 H Platelet Count 97 #L Mean Platelet Volume 10.5 H Neutrophils % 62.8 Lymphocytes % 28.9 Monocytes % 5.4 Eosinophils % 1.7 Basophils % 0.3 Nucleated Red Blood Cells % 0.3 H Neutrophils # (Manual) 3.7 Lymphocytes # 1.7 Monocytes # 0.3 Eosinophils # 0.1 Basophils # 0.0 Nucleated Red Blood Cells # 0.0 Sodium Level 147 H Potassium Level 3.6 Chloride Level 112 H Carbon Dioxide Level 24 Anion Gap 15 Blood Urea Nitrogen 17 # Creatinine 0.69 Glucose Level 166 # Calcium Level 8.1 L Phosphorus Level 3.0 Magnesium Level 2.2 Total Bilirubin 0.7 Direct Bilirubin 0.00 Indirect Bilirubin 0.7 Aspartate Amino Transf (AST/SGOT) 59 H Alanine Aminotransferase (ALT/SGPT) 47 Alkaline Phosphatase 113 Total Protein 6.3 Albumin 2.9 L Globulin 3.40 H Albumin/Globulin Ratio 0.85 Triglycerides Level 261 H Cholesterol Level 160 LDL Cholesterol, Calculated 78 HDL Cholesterol 30 L Cholesterol/HDL Ratio 5.3 Thyroid Stimulating Hormone (TSH) 2.670 Bedside Glucose 185 Test 12/29/16 12:30 12/29/16 12:45 12/29/16 13:05 Hemoglobin 7.5 L Hematocrit 22.9 L Hemoglobin A1c 9.0 H Bedside Glucose 176 Medications Medications Current Medications Morphine Sulfate 2 mg 2 mg Q4H PRN IV PAIN Last administered on 12/28/16 12:42 ; Admin Dose 2 MG; Start 12/28/16 at 12:30 Sodium Chloride (NS) 1,000 ml @ 80 mls/hr [id number] IV Last administered on 12/29 13:02; Admin Dose 80 MLS/HR; Start 12/28/16 at 12:40 Ondansetron HCl (Zofran Inj) 4 mg Q6H PRN IV NAUSEA AND/OR VOMITING; Start at 13:00 Morphine Sulfate (morphine) 2 mg Q4H PRN IV SEVERE PAIN LEVEL 7-10; Start 12/28 at 13:00 Pantoprazole (Protonix Iv) 40 mg DAILY@06 IV Last administered on 12/29/16 05: 26; Admin Dose 40 MG; Start 12/28/16 at 17:00 Diagnostic Test (Pha) (Accu-Chek) 1 ea 02 XX ; Start 12/29/16 at 02:00 Insulin Aspart (Novolog Insulin Pen) NOVOLOG *MILD* ALGORI... Q4 SC Last administered on 12/29/16 13:17; Admin Dose 1 UNIT; Start 12/28/16 at 17:00 Fish Oil (Fish Oil) 1,000 mg BID PO ; Start 12/29/16 at 21:00 Insulin Glargine (Lantus) 14 unit DAILY@08 SC ; Start 12/29/16 at 14:30; Status KAYLA WALTER MD Dec 29, 2016 14:30
[2016-12-29] MEDS: INSULIN GLARGINE [LANtus] 3 ML PEN SC SCH (15:47)
[2016-12-29] MEDS ORDERED: GLUCOSE GEL 15 GRAM TUBE PO PRN ×2 (17:30)
[2016-12-29] MEDS ORDERED: DEXTROSE 50% 50 ML SYRINGE IV PRN ×2 (17:30)
[2016-12-29] MEDS ORDERED: MAGNESIUM CITRATE 300 ML BTL PO ONE (17:30)
[2016-12-29] MEDS ORDERED: GLUCOSE GEL 15 GRAM TUBE BUCCAL PRN (17:30)
[2016-12-29] MEDS ORDERED: GLUCAGON 1 MG INJ IM PRN (17:30)
[2016-12-29] MEDS ORDERED: metFORMIN 500 MG TAB PO SCH (18:05)
[2016-12-29 18:18] LABS: HEMATOCRIT 23.3 % (37.0-47.0); HEMOGLOBIN 7.7 g/dl (12.0-16.0)
[2016-12-29] MEDS ORDERED: POLYETHYLENE GLYCOL 3350 119 GM POWDER PO ONE (18:30)
--- NOTE | 2016-12-29 19:56 | CONS ---
Date/Time of Note Date/Time of Note DATE: 12/29/16 TIME: 19:49 Assessment/Plan Assessment/Plan Additional Assessment/Plan Assessment: * Unexplained anemia/GI bleeding * Rule out colonic neoplasm/rule out esophageal varices * Rule out liver neoplasm, primary versus metastatic * Cryptogenic cirrhosis Plan: * EGD and colonoscopy tomorrow. Patient and relatives were informed and are agreeable Consultation Date/Type/Reason Admit Date/Time Date of Consultation: Dec 29, 2016 Reason for Consultation Anemia/liver mass Hx of Present Illness 71-year-old female, extremely poor historian, hospitalized with significant anemia, near syncopal episode, imaging has shown evidence of cirrhosis of the liver and possible mass in the liver suspected neoplastic. The patient has never had endoscopic elevation. The patient is comfortable at the present time. We will plan EGD and colonoscopy as signs of this the possibility of patient previous history of liver disease of any type. She denies alcohol abuse the procedures and colonoscopy were explained in detail including risks, benefits and alternatives. Agreeable to proceed Constitutional: improved, no complaints Eyes: no complaints ENT: no complaints Respiratory: no complaints Cardiovascular: no complaints Gastrointestinal: no complaints, other (See HPI) Genitourinary: no complaints Musculoskeletal: no complaints Skin: no complaints Neurologic: no complaints Endocrine: no complaints Lymphatic: no complaints Psychological: nl mood/affect, no complaints Immunologic: no complaints Social History Smoking Status: Never smoker Exam/Review of Systems Vital Signs Vitals Vital Signs Date Time Temp Pulse Resp B/P Pulse Ox O2 Delivery O2 Flow Rate FiO2 12/29/16 16:07 63 12/29/16 15:57 98.1 19 144/67 97 Intake and Output 12/28/16 12/28/16 12/29/16 15:00 23:00 07:00 Output Total 300 ml Balance -300 ml Exam Constitutional: alert, oriented, well developed Psych: nl mood/affect, no complaints Head: atraumatic, normocephalic Eyes: EOMI, PERRL, nl conjunctiva, nl lids, nl sclera ENMT: nl external ears & nose, nl lips & teeth, nl nasal mucosa & septum Neck: non-tender, supple Respiratory: clear to auscultation, normal air movement Cardiovascular: nl pulses, regular rate and rhythm Gastrointestinal: nl liver, spleen, non-tender, soft Musculoskeletal: nl extremities to inspection Extremities: normal pulses Skin: nl turgor, No rash or lesions Lymph: nl lymph nodes Results Result Diagram: 12/29/16 1745 12/29/16 0709 Results 24 hrs Laboratory Tests Test 12/28/16 21:42 12/28/16 22:52 12/29/16 01:19 12/29/16 05:22 Bedside Glucose 234 H 219 187 Troponin I < 0.012 Test 12/29/16 07:00 12/29/16 07:08 12/29/16 07:09 12/29/16 09:42 Urine Color YELLOW Urine Clarity SLIGHTLY CLOUDY A Urine pH 6.0 Urine Specific [place] 1.035 H Urine Ketones NEGATIVE Urine Nitrite NEGATIVE Urine Bilirubin NEGATIVE Urine Urobilinogen 1+ H Urine Leukocyte Esterase NEGATIVE Urine Microscopic RBC 1 Urine Microscopic WBC 6 H Urine Squamous Epithelial Cells FEW Urine Bacteria FEW A Urine Hemoglobin 3+ H Urine Glucose 1+ H Urine Total Protein NEGATIVE Urine Opiates Screen Positive Urine Barbiturates Negative Urine Amphetamines Screen Negative Urine Benzodiazepines Screen Negative Urine Cocaine Screen Negative Urine Cannabinoids Negative Hemoglobin A1c 8.1 H Troponin I < 0.012 White Blood Count 5.9 # Red Blood Count 2.48 L Hemoglobin 7.5 L Hematocrit 22.6 L Mean Corpuscular Volume 91.1 Mean Corpuscular Hemoglobin 30.2 Mean Corpuscular Hemoglobin Concent 33.2 Red Cell Distribution Width 15.5 H Platelet Count 97 #L Mean Platelet Volume 10.5 H Neutrophils % 62.8 Lymphocytes % 28.9 Monocytes % 5.4 Eosinophils % 1.7 Basophils % 0.3 Nucleated Red Blood Cells % 0.3 H Neutrophils # (Manual) 3.7 Lymphocytes # 1.7 Monocytes # 0.3 Eosinophils # 0.1 Basophils # 0.0 Nucleated Red Blood Cells # 0.0 Sodium Level 147 H Potassium Level 3.6 Chloride Level 112 H Carbon Dioxide Level 24 Anion Gap 15 Blood Urea Nitrogen 17 # Creatinine 0.69 Glucose Level 166 # Calcium Level 8.1 L Phosphorus Level 3.0 Magnesium Level 2.2 Total Bilirubin 0.7 Direct Bilirubin 0.00 Indirect Bilirubin 0.7 Aspartate Amino Transf (AST/SGOT) 59 H Alanine Aminotransferase (ALT/SGPT) 47 Alkaline Phosphatase 113 Total Protein 6.3 Albumin 2.9 L Globulin 3.40 H Albumin/Globulin Ratio 0.85 Triglycerides Level 261 H Cholesterol Level 160 LDL Cholesterol, Calculated 78 HDL Cholesterol 30 L Cholesterol/HDL Ratio 5.3 Thyroid Stimulating Hormone (TSH) 2.670 Bedside Glucose 185 Test 12/29/16 12:30 12/29/16 12:45 12/29/16 13:05 12/29/16 17:02 Hemoglobin 7.5 L Hematocrit 22.9 L Alpha Fetoprotein 46.10 H Hemoglobin A1c 9.0 H Bedside Glucose 176 171 Test 12/29/16 17:45 Hemoglobin 7.7 L Hematocrit 23.3 L Medications Medications Current Medications Morphine Sulfate 2 mg 2 mg Q4H PRN IV PAIN Last administered on 12/28/16 12:42 ; Admin Dose 2 MG; Start 12/28/16 at 12:30 Sodium Chloride (NS) 1,000 ml @ 80 mls/hr [id number] IV Last administered on 12/29 13:02; Admin Dose 80 MLS/HR; Start 12/28/16 at 12:40 Ondansetron HCl (Zofran Inj) 4 mg Q6H PRN IV NAUSEA AND/OR VOMITING; Start at 13:00 Morphine Sulfate (morphine) 2 mg Q4H PRN IV SEVERE PAIN LEVEL 7-10; Start 12/28 at 13:00 Pantoprazole (Protonix Iv) 40 mg DAILY@06 IV Last administered on 12/29/16 05: 26; Admin Dose 40 MG; Start 12/28/16 at 17:00 Diagnostic Test (Pha) (Accu-Chek) 1 ea 02 XX ; Start 12/29/16 at 02:00 Insulin Aspart (Novolog Insulin Pen) NOVOLOG *MILD* ALGORI... Q4 SC Last administered on 12/29/16 17:09; Admin Dose 1 UNIT; Start 12/28/16 at 17:00 Fish Oil (Fish Oil) 1,000 mg BID PO ; Start 12/29/16 at 21:00 Insulin Glargine (Lantus) 14 unit DAILY@08 SC Last administered on 12/29/16 15 :47; Admin Dose 14 UNIT; Start 12/29/16 at 14:30 Miscellaneous Information 1 ea NOTE XX ; Start 12/29/16 at 17:30 Glucose (Glutose) 15 gm Q15M PRN PO DECREASED GLUCOSE; Start 12/29/16 at 17:30 Glucose (Glutose) 22.5 gm Q15M PRN PO DECREASED GLUCOSE; Start 12/29/16 at 17: 30 Dextrose (D50w Syringe) 25 ml Q15M PRN IV DECREASED GLUCOSE; Start 12/29/16 at 17:30 Dextrose (D50w Syringe) 50 ml Q15M PRN IV DECREASED GLUCOSE; Start 12/29/16 at 17:30 Glucagon (Glucagen) 1 mg Q15M PRN IM DECREASED GLUCOSE; Start 12/29/16 at 17:30 Glucose (Glutose) 15 gm Q15M PRN BUCCAL DECREASED GLUCOSE; Start 12/29/16 at 17 :30 ENOCH LIZ MD Dec 29, 2016 19:56
[2016-12-29] MEDS ORDERED: BISACODYL (EC) 5 MG TAB PO ONE (20:00)
[2016-12-29] MEDS: FISH OIL 1,000 MG CAP PO SCH (21:10)
[2016-12-30] VITALS (23 sets, daily range): BP systolic 122–199; BP diastolic 61–77; PULSE 50–71; RESP 11–20
[2016-12-30] MEDS: SOD CHLORIDE 0.9% 1,000 ML IV SCH ×2 (01:08→12:50)
[2016-12-30] MEDS: INSULIN ASPART [NOVOLOG] 3 ML PEN SC SCH ×5 (01:10→21:00)
[2016-12-30] MEDS: ACCU-CHEK XX SCH (01:21)
[2016-12-30] MEDS: morphine 2 MG INJ IV PRN (04:28)
[2016-12-30] MEDS: PANTOPRAZOLE 40 MG INJ IV SCH (05:29)
[2016-12-30] MEDS ORDERED: POLYETHYLENE GLYCOL 3350 119 GM POWDER PO ONE (06:00)
[2016-12-30] MEDS: INSULIN GLARGINE [LANtus] 3 ML PEN SC SCH (07:59)
[2016-12-30] MEDS ORDERED: BISACODYL (EC) 5 MG TAB PO ONE (08:00)
[2016-12-30] MEDS ORDERED: INSULIN GLARGINE [LANtus] 3 ML PEN SC SCH (08:00)
[2016-12-30 08:15] LABS: HAAIG REFLEX REFLEX FILED
[2016-12-30 08:31] LABS: ABNORMAL IP MESSAGE 1; BASOPHILS % 0.3 % (0.0-2.0); EOSINOPHILS # 0.1 10^3/ul (0.0-0.5); HEMATOCRIT 22.8 % (37.0-47.0); HEMOGLOBIN 7.5 g/dl (12.0-16.0); LYMPHOCYTES # 1.2 10^3/ul (0.8-2.9); LYMPHOCYTES % 29.3 % (15.0-51.0); MEAN CORPUSCULAR HEMOGLOBIN 30.5 pg (29.0-33.0); MEAN CORPUSCULAR HGB CONC 32.9 g/dl (32.0-37.0); MEAN CORPUSCULAR VOLUME 92.7 fl (82.0-101.0); MEAN PLATELET VOLUME 10.2 fl (7.4-10.4); MONOCYTE # 0.2 10^3/ul (0.3-0.9); MONOCYTES % 3.8 % (0.0-11.0); NEUTROPHILS % 63.8 % (39.0-77.0); NUCLEATED RED BLOOD CELLS% 0.5 /100WBC (0.0-0.0); PLATELET COUNT 90 10^3/UL (140-415); RED BLOOD COUNT 2.46 10^6/ul (4.20-5.40); RED CELL DISTRIBUTION WIDTH 15.8 % (11.5-14.5)
[2016-12-30 08:34] LABS: POSITIVE DIFF @See below
[2016-12-30 08:49] LABS: CALCIUM 7.7 mg/dl (8.4-10.2); CREATININE 0.63 mg/dl (0.44-1.00); POTASSIUM 3.2 mmol/L (3.5-5.1)
[2016-12-30] MEDS: FISH OIL 1,000 MG CAP PO SCH ×2 (09:00→22:03)
--- NOTE | 2016-12-30 09:16 | PN ---
DATE: 12/30/2016 SUBJECTIVE: The patient has no specific complaints today. Does not complain of abdominal pain or nausea or vomiting. PHYSICAL EXAMINATION: GENERAL: Patient is a well-developed, mildly obese female, who is in no acute distress. VITAL SIGNS: Temp 98, pulse 60 per minute and regular, respirations 19, blood pressure 144/73, pulse oximetry 98 percent on room air. SKIN: No ecchymosis, no petechiae or rashes, but pale. HEENT: Normocephalic, no evidence of trauma. Pupils equal, round, react to light and accommodation. No scleral icterus. Conjunctivae and oral mucosa is pale, but there are no mucosal lesions. Tongue is well papillated. No gingival hyperplasia. No hypertrophy of Waldeyer's ring. NECK: Supple. No jugular distention, or thyroid enlargement. CHEST: Clear to auscultation and percussion. No rhonchi, wheezes, rales, or rubs. NODES: No palpable lymphadenopathy in the lymph node bearing area. ABDOMEN: Mildly obese, but soft. There are no palpable masses. No guarding or rebound tenderness. No ascites. Bowel sounds are active. EXTREMITIES: Good range of motion. No clubbing or cyanosis. No palpable cords or Homans sign. LABORATORY AND DIAGNOSTIC DATA: Alpha-fetoprotein is 46.1. White count 4000, with absolute neutrophil count of 2,500, absolute lymphocyte count 1,200, hemoglobin 7.5, hematocrit 22.8, platelet count 90,000. ASSESSMENT: 1. Cirrhosis with portal hypertension. 2. Possible primary hepatocellular carcinoma. DISCUSSION: This patient does have a mild pancytopenia. The mild leukopenia and thrombocytopenia is likely on the basis of splenic sequestration due to portal hypertension. The patient does have evidence of cirrhosis with a possible lesion in the right hepatic lobe. There has been no decompensation of liver function. No sudden onset of ascites. Alpha fetoprotein is suggestive, but not diagnostic of a primary hepatocellular carcinoma. Will request an MRI of the liver with contrast in order to further delineate the lesion in the right hepatic lobe. This patient's renal function is normal, and therefore she can receive the appropriate contrast material. We will also request an ammonia level. The patient however does not have asterixis or other evidence suggesting encephalopathy. Dictated By: Gabriele Pozo MD /girma/syeda /Document#: [id number] MTDD
[2016-12-30 09:17] LABS: CANCER ANTIGEN 125 62.7 U/ml (0.0-35.0); CARCINOEMBRYONIC ANTIGEN 2.7 ng/ml (0.0-5.0)
[2016-12-30 09:21] LABS: CANCER ANTIGEN 19-9 19.7 U/ml (0.0-37.0)
[2016-12-30 09:39] LABS: HEPATITIS B CORE ANTIBODY NEGATIVE (NEGATIVE)
[2016-12-30] MEDS ORDERED: SOD CHLORIDE 0.9% 250 ML IV* ONE (12:58)
--- NOTE | 2016-12-30 13:06 | PN ---
Date/Time of Note Date/Time of Note DATE: 12/30/16 TIME: 12:56 Assessment/Plan VTE Prophylaxis VTE Prophylaxis Intervention: SCD's Lines/Catheters IV [facility]from [facility] Saline Lock Assessment/Plan Chief Complaint/Hosp Course 1. GI bleed/hematemesis/hematochezia. Rule out etiology including possible variceal bleed(CT with cirrhosis and portal HTN) vs GI ulcers vs hemorrhoids vs others - GI on board and for endoscopy/colonoscopy evaluation -Strict n.p.o., IV fluids, IV Protonix and serial H&H monitor and transfuse as indicated. 2. Normocytic anemia, likely Acute on anemia of chronic illness 2/2 blood loss anemia secondary to #1. Hemoglobin remains relatively stable but no expected improvement after transfusion -Transfuse 1 PRBC. -We will continue to check H&H closely. We will transfuse as indicated. 3. Questionable right hepatic lobe ill-defined mass with #4, concerning for hepatocellular carcinoma. Elevated AFP -F/u with liver protocol MRI with enhanced contrast. - heme/oncology on board 4.Non-alcoholic Liver Cirrhosis with portal hypertension. No evidence of ascites -F/u GI recs 5. Status post Syncope Vs Presyncope. CT and MRI negative for any acute intracranial pathology. ACS ruled out with serial trops/EKG. Symptoms resolved. EEG with no epileptic activities -f/u neuro recs. 6. 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 A1C 8.1. Glucose stabilizing. -Increase Lantus to 16 units and continue with ISS -Consider starting Metformin after contrast studies 7. Encephalopathy, possibly hepatic. Currently at baseline -Will monitor 8.History of Dyslipidemia, off treatment. Lipid panel noted and will start on Fishoil. LDL under good control. 9. Obesity. Will advise on therapeutic lifestyle changes upon discharge. 10. Thrombocytopenia.Stable -Monitor. VT prophylaxis: SCDs PUD prophylaxis: Protonix PLAN:F/u with EGD/Colonsocpy reports. F/u with oncology recs.. Monitor HH closely. Case discussed with Problems: Subjective 24 Hr Interval Summary Free Text/Dictation Remains awake. Having melanic stool.no vomiting.For EGD/Colonoscopy today Exam/Review of Systems Vital Signs Vitals Vital Signs Date Time Temp Pulse Resp B/P Pulse Ox O2 Delivery O2 Flow Rate FiO2 12/30/16 12:07 56 9/1/17 11:49 98.3 19 128/67 98 Intake and Output 12/29/16 12/29/16 12/30/16 15:00 23:00 07:00 Intake Total 1200 ml 2100 ml Output Total 500 ml Balance 1200 ml 1600 ml Exam General: Obese female, not in any acute distress . HEENT: Normocephalic, Atraumatic, No laceration or hematoma; Eyes: PEERL, Conjunctiva clear, Anicteric sclera Neck: Supple without any lymphadenopathy, nontender, no JVD, no carotid bruits, trachea midline, no thyromegaly Cardiac: S1, S2 auscultated, regular rhythm and rate, no mumurs or gallop Pulmonary: Normal respiratory effort. Chest clear to auscultation bilaterally, no adventitious breath sounds GI: Abdomen obese to inspection. Soft, non tender, non- distended, no masses, no rebound tenderness or guarding. Bowel sounds active on all four quadrants Genitourinary: Deferred Extremities: No cyanosis, clubbing, or edema. Pulses [2+] bilaterally. Full ROM on all four extremities. No focal weakness appreciated. Neurologic: Awake and orientedx2- Mildly confused. Withdrawn affect Skin: Dry, and intact. No ecchymosis, no rashes, or lesions Results Result Diagram: 12/30/16 0716 12/30/16 0716 Results 24 hrs Laboratory Tests Test 12/29/16 13:05 12/29/16 17:02 12/29/16 17:45 12/29/16 20:47 Bedside Glucose 176 171 153 Hemoglobin 7.7 L Hematocrit 23.3 L Test 12/30/16 01:07 12/30/16 04:30 12/30/16 05:39 12/30/16 07:16 Bedside Glucose 193 156 Lab Scanned Report BLOOD TRANSFUSION White Blood Count 4.0 #L Red Blood Count 2.46 L Hemoglobin 7.5 L Hematocrit 22.8 L Mean Corpuscular Volume 92.7 Mean Corpuscular Hemoglobin 30.5 Mean Corpuscular Hemoglobin Concent 32.9 Red Cell Distribution Width 15.8 H Platelet Count 90 L Mean Platelet Volume 10.2 Neutrophils % 63.8 Lymphocytes % 29.3 Monocytes % 3.8 Eosinophils % 2.0 Basophils % 0.3 Nucleated Red Blood Cells % 0.5 H Neutrophils # (Manual) 2.5 Lymphocytes # 1.2 Monocytes # 0.2 L Eosinophils # 0.1 Basophils # 0.0 Nucleated Red Blood Cells # 0.0 Sodium Level 141 Potassium Level 3.2 L Chloride Level 113 H Carbon Dioxide Level 21 Anion Gap 10 # Blood Urea Nitrogen 12 Creatinine 0.63 Glucose Level 181 Calcium Level 7.7 L Lactate Dehydrogenase 616 Alpha Fetoprotein 46.90 H Carcinoembryonic Antigen 2.7 CA 19-9 Antigen 19.7 CA 125 Antigen 62.7 H Hepatitis B Surface Antigen NEGATIVE Hepatitis B Core Total Antibody NEGATIVE Hepatitis C Antibody NEGATIVE Test 12/30/16 07:33 12/30/16 10:35 12/30/16 12:46 Bedside Glucose 200 177 Ammonia 24 Medications Medications Current Medications Morphine Sulfate 2 mg 2 mg Q4H PRN IV PAIN Last administered on 12/30/16 04:28 ; Admin Dose 2 MG; Start 12/28/16 at 12:30 Sodium Chloride (NS) 1,000 ml @ 80 mls/hr [id number] IV Last administered on 12:50; Admin Dose 80 MLS/HR; Start 12/28/16 at 12:40 Ondansetron HCl (Zofran Inj) 4 mg Q6H PRN IV NAUSEA AND/OR VOMITING; Start at 13:00 Morphine Sulfate (morphine) 2 mg Q4H PRN IV SEVERE PAIN LEVEL 7-10; Start 12/28 at 13:00 Pantoprazole (Protonix Iv) 40 mg DAILY@06 IV Last administered on 12/30/16 05: 29; Admin Dose 40 MG; Start 12/28/16 at 17:00 Diagnostic Test (Pha) (Accu-Chek) 1 ea 02 XX ; Start 12/29/16 at 02:00 Insulin Aspart (Novolog Insulin Pen) NOVOLOG *MILD* ALGORI... Q4 SC Last administered on 12/30/16 12:53; Admin Dose 1 UNIT; Start 12/28/16 at 17:00 Fish Oil (Fish Oil) 1,000 mg BID PO Last administered on 12/29/16 21:10; Admin Dose 1,000 MG; Start 12/29/16 at 21:00 Insulin Glargine (Lantus) 14 unit DAILY@08 SC Last administered on 12/30/16 07: 59; Admin Dose 14 UNIT; Start 12/29/16 at 14:30 Miscellaneous Information 1 ea NOTE XX ; Start 12/29/16 at 17:30 Glucose (Glutose) 15 gm Q15M PRN PO DECREASED GLUCOSE; Start 12/29/16 at 17:30 Glucose (Glutose) 22.5 gm Q15M PRN PO DECREASED GLUCOSE; Start 12/29/16 at 17: 30 Dextrose (D50w Syringe) 25 ml Q15M PRN IV DECREASED GLUCOSE; Start 12/29/16 at 17:30 Dextrose (D50w Syringe) 50 ml Q15M PRN IV DECREASED GLUCOSE; Start 12/29/16 at 17:30 Glucagon (Glucagen) 1 mg Q15M PRN IM DECREASED GLUCOSE; Start 12/29/16 at 17:30 Glucose (Glutose) 15 gm Q15M PRN BUCCAL DECREASED GLUCOSE; Start 12/29/16 at 17 :30 MARVA MENA NP Dec 30, 2016 13:06
--- NOTE | 2016-12-30 18:19 | OPR ---
Date/Time of Note Date/Time of Note DATE: 12/30/16 TIME: 18:14 Operative Report Free Text/Dictation Recommendations: 1. protonix 40 mg iv bid 2. start propranolol 10 mg po bid 3. monitor h/h and if hgb drops, start octreotide gtt and change protonix to gtt formulation Procedure Date: Dec 30, 2016 Preoperative Diagnosis unexplained anemia, occult positive stool Postoperative Diagnosis unexplained anemia, occult positive stool Operation Performed colonoscopy with forcep polypectomy Surgeon: DAMIEN CAMPBELL MD Anesthesia Type: MAC Anesthesiologist: VIKI CLARK DO Estimated Blood Loss: minimal Transfusion Required: no Grafts/Implants: none Complications: no Pt Condition Post Procedure: stable Disposition: PACU Indications unexplained anemia, occcult positive stool Operative\Procedure Findings EGD: 1. severe portal hypertensive gastropathy 2. moderate sized internal hemorrhoids 3. gastric ulcer Colonoscopy 1. diverticulosis of left colon 2. moderate sized internal hemorrhoids 3. cecal polyp s/p forcep polypectomy Procedure Description After timeout and confirming informed consent, patient was sedated by Dr. Clark. After adequate sedation, I inserted an adult EGD scope from the mouth and advanced to second portion of the duodenum. I then withdraw the EGD scope to the stomach where I performed retroflexion in the body to examine the fundus and cardia. I then suctioned out the air in the stomach while examine the esophagus circumferentially. GEJ and Z line at 38 cm, no hiatal hernia. After the completion of the EGD, patient was turned around for colonoscopy. I performed ANNA which has watery brown stool. I then inserted an adult colonoscope from the anus and advanced to cecum at 80 cm as confirmed by IC valve and appendiceal orifice. I then withdraw the colonoscope while examine the lumen circumferentially. Retroflexion was performed and showed moderate sized internal hemorrhoids. DAMIEN CAMPBELL MD Dec 30, 2016 18:19
[2016-12-30] MEDS ORDERED: LIDOCAINE 2% (SDV) 5 ML INJ ONE (18:25)
[2016-12-30] MEDS ORDERED: PROPOFOL 20 ML ONE (18:25)
[2016-12-30] MEDS ORDERED: hydrALAzine 20 MG INJ ONE (19:29)
[2016-12-30] MEDS ORDERED: hydrALAzine 20 MG INJ IV PRN (19:30)
[2016-12-30] MEDS: PROPRANOLOL 10 MG TAB PO SCH (22:00)
[2016-12-31] VITALS (12 sets, daily range): BP systolic 95–143; BP diastolic 53–68; PULSE 50–60; RESP 18–20
[2016-12-31] MEDS: INSULIN ASPART [NOVOLOG] 3 ML PEN SC SCH ×3 (01:00→08:41)
[2016-12-31] MEDS: ACCU-CHEK XX SCH (01:14)
[2016-12-31] MEDS: SOD CHLORIDE 0.9% 1,000 ML IV SCH (02:59)
[2016-12-31] MEDS: PANTOPRAZOLE 40 MG INJ IV SCH (06:38)
[2016-12-31 07:46] LABS: ABNORMAL IP MESSAGE 1; BASOPHILS % 0.3 % (0.0-2.0); EOSINOPHILS % 1.3 % (0.0-7.0); HEMATOCRIT 24.4 % (37.0-47.0); HEMOGLOBIN 8.4 g/dl (12.0-16.0); LYMPHOCYTES # 1.1 10^3/ul (0.8-2.9); LYMPHOCYTES % 33.4 % (15.0-51.0); MEAN CORPUSCULAR HEMOGLOBIN 31.1 pg (29.0-33.0); MEAN CORPUSCULAR HGB CONC 34.4 g/dl (32.0-37.0); MEAN CORPUSCULAR VOLUME 90.4 fl (82.0-101.0); MEAN PLATELET VOLUME 10.6 fl (7.4-10.4); MONOCYTE # 0.1 10^3/ul (0.3-0.9); MONOCYTES % 4.4 % (0.0-11.0); NEUTROPHILS % 60.3 % (39.0-77.0); NUCLEATED RED BLOOD CELLS% 0.6 /100WBC (0.0-0.0); RED CELL DISTRIBUTION WIDTH 15.3 % (11.5-14.5); WHITE BLOOD COUNT 3.2 10^3/ul (4.8-10.8)
[2016-12-31 07:49] LABS: PLATELET COUNT 92 10^3/UL (140-415); POSITIVE DIFF @See below
[2016-12-31 08:13] LABS: CALCIUM 7.4 mg/dl (8.4-10.2); CREATININE 0.61 mg/dl (0.44-1.00)
[2016-12-31 08:24] LABS: POTASSIUM 2.8 mmol/L (3.5-5.1)
[2016-12-31] MEDS: FISH OIL 1,000 MG CAP PO SCH ×2 (08:39→20:39)
[2016-12-31] MEDS: PROPRANOLOL 10 MG TAB PO SCH ×2 (08:40→20:39)
[2016-12-31] MEDS: INSULIN GLARGINE [LANtus] 3 ML PEN SC SCH (08:42)
--- NOTE | 2016-12-31 11:01 | CONS ---
Date/Time of Note Date/Time of Note DATE: 12/31/16 TIME: 10:55 Assessment/Plan Assessment/Plan Chief Complaint/Hosp Course Assessment: 1. Cryptogenic cirrhosis 2. s/p EGD 12/30/16 that showed severe portal hypertensive gastropathy, moderate sized internal hemorrhoids, gastric ulcer 3. s/p Colonoscopy 12/30/16 that showed diverticulosis of left colon. moderate sized internal hemorrhoids, cecal polyp s/p forcep polypectomy Recommendations: 1. f/u biopsy results 2. change protonix from IV to po 3. continue propranolol for management of esophageal varices 4. dc ivf as pt is eating 5. ok from gi perspective to dc if ok with primary and other consultants Problems: Consultation Date/Type/Reason Admit Date/Time Dec 28, 2016 at 12:00 Initial Consult Date 12/29/16 Type of Consultation: GI Referring Provider: MARVA MENA NP 24 HR Interval Summary Free Text/Dictation no abdominal pain, no n/v. Only complains of mild headache. Exam/Review of Systems Vital Signs Vitals Vital Signs Date Time Temp Pulse Resp B/P Pulse Ox O2 Delivery O2 Flow Rate FiO2 12/31/16 08:15 54 12/31/16 07:30 98.0 19 129/68 98 12/30/16 19:39 Nasal Cannula 3.0 Intake and Output 12/30/16 12/30/16 12/31/16 15:00 23:00 07:00 Intake Total 960 ml Balance 960 ml Exam Constitutional: alert, oriented, well developed Psych: nl mood/affect, no complaints Head: atraumatic, normocephalic Eyes: EOMI, nl conjunctiva, nl lids, nl sclera ENMT: mucosa pink and moist, nl external ears & nose, nl lips & teeth, nl nasal mucosa & septum Neck: non-tender, supple Respiratory: clear to auscultation, normal air movement Cardiovascular: nl pulses, regular rate and rhythm Gastrointestinal: bowel sounds, non-tender, soft Results Result Diagram: 12/31/16 0703 12/31/16 0703 Results 24 hrs Laboratory Tests Test 12/30/16 12:46 12/30/16 17:09 12/30/16 21:12 12/31/16 01:09 Bedside Glucose 177 127 125 129 Test 12/31/16 06:37 12/31/16 07:03 12/31/16 07:47 Bedside Glucose 129 142 White Blood Count 3.2 L Red Blood Count 2.70 L Hemoglobin 8.4 L Hematocrit 24.4 L Mean Corpuscular Volume 90.4 Mean Corpuscular Hemoglobin 31.1 Mean Corpuscular Hemoglobin Concent 34.4 Red Cell Distribution Width 15.3 H Platelet Count 92 L Mean Platelet Volume 10.6 H Neutrophils % 60.3 Lymphocytes % 33.4 Monocytes % 4.4 Eosinophils % 1.3 Basophils % 0.3 Nucleated Red Blood Cells % 0.6 H Neutrophils # (Manual) 1.9 Lymphocytes # 1.1 Monocytes # 0.1 L Eosinophils # 0.0 Basophils # 0.0 Nucleated Red Blood Cells # 0.0 Sodium Level 138 Potassium Level 2.8 *L Chloride Level 109 Carbon Dioxide Level 25 Anion Gap 7 L Blood Urea Nitrogen 8 Creatinine 0.61 Glucose Level 118 # Calcium Level 7.4 L Medications Medications Current Medications Morphine Sulfate 2 mg 2 mg Q4H PRN IV PAIN Last administered on 12/30/16 04:28 ; Admin Dose 2 MG; Start 12/28/16 at 12:30 Sodium Chloride (NS) 1,000 ml @ 80 mls/hr [id number] IV Last administered on 12:50; Admin Dose 80 MLS/HR; Start 12/28/16 at 12:40 Ondansetron HCl (Zofran Inj) 4 mg Q6H PRN IV NAUSEA AND/OR VOMITING; Start at 13:00 Morphine Sulfate (morphine) 2 mg Q4H PRN IV SEVERE PAIN LEVEL 7-10; Start 12/28 at 13:00 Pantoprazole (Protonix Iv) 40 mg DAILY@06 IV Last administered on 12/31/16 06: 38; Admin Dose 40 MG; Start 12/28/16 at 17:00 Diagnostic Test (Pha) (Accu-Chek) 1 ea 02 XX Last administered on 12/31/16 01: 14; Admin Dose 1 EA; Start 12/29/16 at 02:00 Insulin Aspart (Novolog Insulin Pen) NOVOLOG *MILD* ALGORI... Q4 SC Last administered on 12/31/16 08:41; Admin Dose 1 UNIT; Start 12/28/16 at 17:00 Fish Oil (Fish Oil) 1,000 mg BID PO Last administered on 12/31/16 08:39; Admin Dose 1,000 MG; Start 12/29/16 at 21:00 Miscellaneous Information 1 ea NOTE XX ; Start 12/29/16 at 17:30 Glucose (Glutose) 15 gm Q15M PRN PO DECREASED GLUCOSE; Start 12/29/16 at 17:30 Glucose (Glutose) 22.5 gm Q15M PRN PO DECREASED GLUCOSE; Start 12/29/16 at 17: 30 Dextrose (D50w Syringe) 25 ml Q15M PRN IV DECREASED GLUCOSE; Start 12/29/16 at 17:30 Dextrose (D50w Syringe) 50 ml Q15M PRN IV DECREASED GLUCOSE; Start 12/29/16 at 17:30 Glucagon (Glucagen) 1 mg Q15M PRN IM DECREASED GLUCOSE; Start 12/29/16 at 17:30 Glucose (Glutose) 15 gm Q15M PRN BUCCAL DECREASED GLUCOSE; Start 12/29/16 at 17 :30 Insulin Glargine (Lantus) 16 unit DAILY@08 SC Last administered on 12/31/16 08: 42; Admin Dose 16 UNIT; Start 12/31/16 at 08:00 Propranolol HCl (Inderal) 10 mg BID PO Last administered on 12/31/16 08:40; Admin Dose 10 MG; Start 12/30/16 at 21:00 DAMIEN CAMPBELL MD Dec 31, 2016 11:01
[2016-12-31] MEDS ORDERED: POTASSIUM CHLORIDE (SR) 20 MEQ TAB PO STA (11:15)
[2016-12-31] MEDS: Insulin NOVOLOG SS MILD Algorithm (SS with meals and bedtime) SC SCH ×3 (11:37→20:58)
[2016-12-31] MEDS ORDERED: INSULIN ASPART [NOVOLOG] 3 ML PEN SC SCH (12:00)
--- NOTE | 2016-12-31 14:04 | PN ---
Date/Time of Note Date/Time of Note DATE: 12/31/16 TIME: 14:02 Assessment/Plan VTE Prophylaxis VTE Prophylaxis Intervention: contraindicated Lines/Catheters [facility] Saline Lock Urinary Cath still in place: No Assessment/Plan Problems: (1) Diastolic dysfunction Status: Chronic Comment: Patient's on Inderal. It may be a consideration given the portal hypertension to use a drug such as nadolol. I am interested in the input from GI (2) Diverticulosis large intestine w/o perforation or abscess w/o bleeding Status: Chronic Comment: Noted no intervention (3) Hemorrhoids Status: Chronic Comment: Noted, no intervention needed Qualifiers: Hemorrhoid type: second degree Qualified Code: K64.1 - Grade II hemorrhoids (4) Portal hypertension (5) Cirrhosis of liver Status: Chronic Comment: Echogenic cirrhosis with portal hypertension and possible right sided lesion. Question is raised about whether or not he is now at all. MRI scan of the liver is pending. More information is coming Qualifiers: Hepatic cirrhosis type: other cirrhosis Qualified Code: K74.69 - Other cirrhosis of liver (6) GI bleed Status: Acute Comment: Stable and holding Qualifiers: GI bleed type/associated pathology: unspecified gastrointestinal hemorrhage type Qualified Code: K92.2 - Gastrointestinal hemorrhage, unspecified gastrointestinal hemorrhage type (7) Anemia Status: Acute Qualifiers: Anemia type: unspecified type Qualified Code: D64.9 - Anemia, unspecified type Subjective 24 Hr Interval Summary Free Text/Dictation Patient reports that she is feeling okay although she has some abdominal pain Constitutional: no complaints Respiratory: no complaints Cardiovascular: no complaints Gastrointestinal: no complaints Exam/Review of Systems Vital Signs Vitals Vital Signs Date Time Temp Pulse Resp B/P Pulse Ox O2 Delivery O2 Flow Rate FiO2 12/31/16 12:08 60 12/31/16 11:31 98.1 19 112/65 98 12/30/16 19:39 Nasal Cannula 3.0 Intake and Output 12/30/16 12/30/16 12/31/16 15:00 23:00 07:00 Intake Total 960 ml Balance 960 ml Exam Constitutional: alert, oriented Neck: non-tender, supple Respiratory: clear to auscultation, normal air movement Gastrointestinal: ascites, nl liver, spleen, non-tender, soft Results Result Diagram: 12/31/16 0703 12/31/16 0703 Results 24 hrs Laboratory Tests Test 12/30/16 17:09 12/30/16 21:12 12/31/16 01:09 12/31/16 06:37 Bedside Glucose 127 125 129 129 Test 12/31/16 07:03 12/31/16 07:47 12/31/16 11:30 White Blood Count 3.2 L Red Blood Count 2.70 L Hemoglobin 8.4 L Hematocrit 24.4 L Mean Corpuscular Volume 90.4 Mean Corpuscular Hemoglobin 31.1 Mean Corpuscular Hemoglobin Concent 34.4 Red Cell Distribution Width 15.3 H Platelet Count 92 L Mean Platelet Volume 10.6 H Neutrophils % 60.3 Lymphocytes % 33.4 Monocytes % 4.4 Eosinophils % 1.3 Basophils % 0.3 Nucleated Red Blood Cells % 0.6 H Neutrophils # (Manual) 1.9 Lymphocytes # 1.1 Monocytes # 0.1 L Eosinophils # 0.0 Basophils # 0.0 Nucleated Red Blood Cells # 0.0 Sodium Level 138 Potassium Level 2.8 *L Chloride Level 109 Carbon Dioxide Level 25 Anion Gap 7 L Blood Urea Nitrogen 8 Creatinine 0.61 Glucose Level 118 # Calcium Level 7.4 L Bedside Glucose 142 247 H Medications Medications Current Medications Morphine Sulfate (morphine) 2 mg Q4H PRN IV PAIN Last administered on 12/30/16 04:28; Admin Dose 2 MG; Start 12/28/16 at 12:30 Ondansetron HCl (Zofran Inj) 4 mg Q6H PRN IV NAUSEA AND/OR VOMITING; Start at 13:00 Morphine Sulfate (morphine) 2 mg Q4H PRN IV SEVERE PAIN LEVEL 7-10; Start 12/28 at 13:00 Diagnostic Test (Pha) (Accu-Chek) 1 ea 02 XX Last administered on 12/31/16 01: 14; Admin Dose 1 EA; Start 12/29/16 at 02:00 Fish Oil (Fish Oil) 1,000 mg BID PO Last administered on 12/31/16 08:39; Admin Dose 1,000 MG; Start 12/29/16 at 21:00 Miscellaneous Information 1 ea NOTE XX ; Start 12/29/16 at 17:30 Glucose (Glutose) 15 gm Q15M PRN PO DECREASED GLUCOSE; Start 12/29/16 at 17:30 Glucose (Glutose) 22.5 gm Q15M PRN PO DECREASED GLUCOSE; Start 12/29/16 at 17: 30 Dextrose (D50w Syringe) 25 ml Q15M PRN IV DECREASED GLUCOSE; Start 12/29/16 at 17:30 Dextrose (D50w Syringe) 50 ml Q15M PRN IV DECREASED GLUCOSE; Start 12/29/16 at 17:30 Glucagon (Glucagen) 1 mg Q15M PRN IM DECREASED GLUCOSE; Start 12/29/16 at 17:30 Glucose (Glutose) 15 gm Q15M PRN BUCCAL DECREASED GLUCOSE; Start 12/29/16 at 17 :30 Insulin Glargine (Lantus) 16 unit DAILY@08 SC Last administered on 12/31/16 08: 42; Admin Dose 16 UNIT; Start 12/31/16 at 08:00 Propranolol HCl (Inderal) 10 mg BID PO Last administered on 12/31/16 08:40; Admin Dose 10 MG; Start 12/30/16 at 21:00 Pantoprazole (Protonix Tab) 40 mg BID@06,18 PO ; Start 12/31/16 at 18:00 JUVENTINO MATAMOROS MD Dec 31, 2016 14:04
[2016-12-31] MEDS: POTASSIUM CHLORIDE (SR) 20 MEQ TAB PO SCH ×3 (14:44→22:24)
[2016-12-31] MEDS: PANTOPRAZOLE (EC) 40 MG TAB PO SCH (18:05)
--- NOTE | 2016-12-31 18:56 | RADRPT ---
PROCEDURE: MRI Abdomen without and with contrast. CLINICAL INDICATION: Indeterminate hepatic lesion suspicious for hepatocellular carcinoma. TECHNIQUE: Multiplanar and multisequence MRI of the abdomen was performed before after the unevent ful intravenous administration of 20 cc of Magnevist. Images were reviewed on a high-resolution PACS workstation. COMPARISON: CT dated 12/28/2016. FINDINGS: There are small to moderate right and trace left pleural effusions. The visualized heart is unremarkable. The liver is small and nodular in contour, consistent with changes of cirrhosis. There is a 4.3 x 3 .5 cm moderately T2 hyperintense lesion in segment 8 of the liver that demonstrates hyperenhancement , but remains hyperintense to the background parenchyma on delayed imaging with no associated washou t. No additional focal hepatic lesion is identified. There is no intra or extrahepatic biliary ductal dilatation. There is diffuse gallbladder wall thic kening. The spleen and adrenal glands are unremarkable. There are sub-centimeter simple cysts in t he left kidney. There are solid no renal masses or hydronephrosis. The pancreas is normal in appear ance with focal mass lesion or pancreatic ductal dilatation. The aorta is nonaneurysmal. There is no mesenteric or retroperitoneal adenopathy. There is a smal l volume of ascites. There is degenerative disk disease in the visualized lumbar spine. No concern ing marrow signal abnormality is identified. IMPRESSION: 1. Cirrhotic liver with a 4.3 x 3.5 cm lesion in segment 8 as described, most consistent with a dys plastic nodule. This corresponds to the lesion identified on recent CT scan. Attention on follow-up is recommended. 2. Small volume of ascites. 3. Nonspecific diffuse gallbladder wall thickening. 4. Small to moderate right and trace left pleural effusions. RPTAT: HLBP .Cody Crouch MD, MD Date Time Electronically viewed and signed by .Cody Crouch MD, MD on 12/31/2016 18:55 .P/
[2017-01-01] VITALS (11 sets, daily range): BP systolic 117–138; BP diastolic 59–72; PULSE 52–63; RESP 17–20
[2017-01-01] MEDS: ACCU-CHEK XX SCH (02:00)
[2017-01-01] MEDS: PANTOPRAZOLE (EC) 40 MG TAB PO SCH ×2 (06:18→17:25)
[2017-01-01] MEDS: Insulin NOVOLOG SS MILD Algorithm (SS with meals and bedtime) SC SCH ×4 (07:30→20:31)
[2017-01-01 07:43] LABS: BASOPHILS % 0.3 % (0.0-2.0); EOSINOPHILS # 0.1 10^3/ul (0.0-0.5); EOSINOPHILS % 2.2 % (0.0-7.0); HEMATOCRIT 27.3 % (37.0-47.0); LYMPHOCYTES # 1.5 10^3/ul (0.8-2.9); LYMPHOCYTES % 39.5 % (15.0-51.0); MEAN CORPUSCULAR HEMOGLOBIN 29.7 pg (29.0-33.0); MEAN CORPUSCULAR VOLUME 90.1 fl (82.0-101.0); MEAN PLATELET VOLUME 10.2 fl (7.4-10.4); MONOCYTE # 0.2 10^3/ul (0.3-0.9); MONOCYTES % 6.2 % (0.0-11.0); NEUTROPHILS % 51.5 % (39.0-77.0); PLATELET COUNT 110 10^3/UL (140-415); RED BLOOD COUNT 3.03 10^6/ul (4.20-5.40); RED CELL DISTRIBUTION WIDTH 15.7 % (11.5-14.5); WHITE BLOOD COUNT 3.7 10^3/ul (4.8-10.8)
[2017-01-01 08:05] LABS: CALCIUM 8.4 mg/dl (8.4-10.2); CREATININE 0.72 mg/dl (0.44-1.00); POTASSIUM 4.3 mmol/L (3.5-5.1)
[2017-01-01] MEDS: FISH OIL 1,000 MG CAP PO SCH ×2 (08:24→20:29)
[2017-01-01] MEDS: PROPRANOLOL 10 MG TAB PO SCH (08:24)
[2017-01-01] MEDS: INSULIN GLARGINE [LANtus] 3 ML PEN SC SCH (08:26)
--- NOTE | 2017-01-01 11:30 | CONS ---
Date/Time of Note Date/Time of Note DATE: 01/01/17 TIME: 11:29 Assessment/Plan Assessment/Plan Chief Complaint/Hosp Course Assessment: 1. Cryptogenic cirrhosis 2. s/p EGD 12/30/16 that showed severe portal hypertensive gastropathy, moderate sized esophageal varices, gastric ulcer 3. s/p Colonoscopy 12/30/16 that showed diverticulosis of left colon. moderate sized internal hemorrhoids, cecal polyp s/p forcep polypectomy Recommendations: 1. f/u biopsy results 2. continue protonix 3. continue propranolol for management of esophageal varices. can titrate up to tid as tolerated by pulse and BP 4. ok from gi perspective to dc if ok with primary and other consultants Problems: Consultation Date/Type/Reason Admit Date/Time Dec 28, 2016 at 12:00 Initial Consult Date 12/29/16 Type of Consultation: GI Referring Provider: MARVA MENA NP 24 HR Interval Summary Free Text/Dictation tolerates po, no n/v Constitutional: improved Exam/Review of Systems Vital Signs Vitals Vital Signs Date Time Temp Pulse Resp B/P Pulse Ox O2 Delivery O2 Flow Rate FiO2 01/01/17 08:19 98.0 55 17 134/61 98 12/30/16 19:39 Nasal Cannula 3.0 Intake and Output 12/31/16 12/31/16 01/01/17 15:00 23:00 07:00 Intake Total 100 ml 480 ml Balance 100 ml 480 ml Exam Constitutional: alert, oriented, well developed Psych: nl mood/affect, no complaints Head: atraumatic, normocephalic Eyes: EOMI, nl conjunctiva, nl lids, nl sclera ENMT: mucosa pink and moist, nl external ears & nose, nl lips & teeth, nl nasal mucosa & septum Neck: non-tender, supple Respiratory: clear to auscultation, normal air movement Cardiovascular: nl pulses, regular rate and rhythm Gastrointestinal: bowel sounds, non-tender, soft Results Result Diagram: 01/01/17 0720 01/01/17 0720 Results 24 hrs Laboratory Tests Test 12/31/16 11:30 12/31/16 18:04 12/31/16 20:37 01/01/17 02:04 Bedside Glucose 247 H 96 217 117 Test 01/01/17 07:20 01/01/17 07:40 White Blood Count 3.7 L Red Blood Count 3.03 L Hemoglobin 9.0 L Hematocrit 27.3 L Mean Corpuscular Volume 90.1 Mean Corpuscular Hemoglobin 29.7 Mean Corpuscular Hemoglobin Concent 33.0 Red Cell Distribution Width 15.7 H Platelet Count 110 L Mean Platelet Volume 10.2 Neutrophils % 51.5 Lymphocytes % 39.5 Monocytes % 6.2 Eosinophils % 2.2 Basophils % 0.3 Nucleated Red Blood Cells % 0.0 Neutrophils # (Manual) 1.9 Lymphocytes # 1.5 Monocytes # 0.2 L Eosinophils # 0.1 Basophils # 0.0 Nucleated Red Blood Cells # 0.0 Sodium Level 139 Potassium Level 4.3 Chloride Level 109 Carbon Dioxide Level 25 Anion Gap 9 Blood Urea Nitrogen 5 L Creatinine 0.72 Glucose Level 114 Calcium Level 8.4 Bedside Glucose 124 Medications Medications Current Medications Morphine Sulfate (morphine) 2 mg Q4H PRN IV PAIN Last administered on 12/30/16 04:28; Admin Dose 2 MG; Start 12/28/16 at 12:30 Ondansetron HCl (Zofran Inj) 4 mg Q6H PRN IV NAUSEA AND/OR VOMITING; Start at 13:00 Morphine Sulfate (morphine) 2 mg Q4H PRN IV SEVERE PAIN LEVEL 7-10; Start 12/28 at 13:00 Diagnostic Test (Pha) (Accu-Chek) 1 ea 02 XX Last administered on 01/01/17 02: 00; Admin Dose 1 EA; Start 12/29/16 at 02:00 Fish Oil (Fish Oil) 1,000 mg BID PO Last administered on 01/01/17 08:24; Admin Dose 1,000 MG; Start 12/29/16 at 21:00 Miscellaneous Information 1 ea NOTE XX ; Start 12/29/16 at 17:30 Glucose (Glutose) 15 gm Q15M PRN PO DECREASED GLUCOSE; Start 12/29/16 at 17:30 Glucose (Glutose) 22.5 gm Q15M PRN PO DECREASED GLUCOSE; Start 12/29/16 at 17: 30 Dextrose (D50w Syringe) 25 ml Q15M PRN IV DECREASED GLUCOSE; Start 12/29/16 at 17:30 Dextrose (D50w Syringe) 50 ml Q15M PRN IV DECREASED GLUCOSE; Start 12/29/16 at 17:30 Glucagon (Glucagen) 1 mg Q15M PRN IM DECREASED GLUCOSE; Start 12/29/16 at 17:30 Glucose (Glutose) 15 gm Q15M PRN BUCCAL DECREASED GLUCOSE; Start 12/29/16 at 17 :30 Insulin Glargine (Lantus) 16 unit DAILY@08 SC Last administered on 01/01/17 08: 26; Admin Dose 16 UNIT; Start 12/31/16 at 08:00 Propranolol HCl (Inderal) 10 mg BID PO Last administered on 01/01/17 08:24; Admin Dose 10 MG; Start 12/30/16 at 21:00 Pantoprazole (Protonix Tab) 40 mg BID@06,18 PO Last administered on 01/01/17 06 :18; Admin Dose 40 MG; Start 12/31/16 at 18:00 DAMIEN CAMPBELL MD Jan 01, 2017 11:30
--- NOTE | 2017-01-01 14:28 | PN ---
Date/Time of Note Date/Time of Note DATE: 01/01/17 TIME: 14:25 Assessment/Plan VTE Prophylaxis VTE Prophylaxis Intervention: SCD's Lines/Catheters IV [facility]ter [facility]from [facility] Urinary Cath still in place: No Assessment/Plan Problems: (1) Mass of right lobe of liver Status: Acute Comment: We see reports of CT and MRI scan. This will need to be followed up for progression (2) Diastolic dysfunction Status: Chronic Comment: Noted. Given the patient's also having portal hypertension is a longer acting beta-david to help control this. Nadolol 20 mg twice daily (3) Portal hypertension Status: Chronic Comment: As above. Do everything we can to help with the process and change Inderal to not all (4) Cirrhosis of liver Status: Chronic Comment: This is cryptogenic cirrhosis, will be supportive of patient. Regarding the mass in the liver appreciate GI input Qualifiers: Hepatic cirrhosis type: other cirrhosis Qualified Code: K74.69 - Other cirrhosis of liver Assessment/Plan Discharge planning the patient needs to be up and around otherwise she is not stable for discharge. I will get physical therapy and we may need to transfer to an ECF temporarily Subjective 24 Hr Interval Summary Free Text/Dictation Patient lying in bed. According to the patient and the patient's bowel she is not been up and around. Constitutional: no complaints Respiratory: no complaints Cardiovascular: no complaints Gastrointestinal: pain (Describes colicky pain in the abdomen) Genitourinary: no complaints Exam/Review of Systems Vital Signs Vitals Vital Signs Date Time Temp Pulse Resp B/P Pulse Ox O2 Delivery O2 Flow Rate FiO2 01/01/17 12:07 97.9 72 18 138/72 97 12/30/16 19:39 Nasal Cannula 3.0 Intake and Output 12/31/16 12/31/16 01/01/17 15:00 23:00 07:00 Intake Total 100 ml 480 ml Balance 100 ml 480 ml Exam Constitutional: alert, oriented Respiratory: clear to auscultation, normal air movement Cardiovascular: nl pulses, regular rate and rhythm Gastrointestinal: nl liver, spleen, other (Positive shifting dullness), soft Results Result Diagram: 01/01/17 0720 01/01/17 0720 Results 24 hrs Laboratory Tests Test 12/31/16 18:04 12/31/16 20:37 01/01/17 02:04 01/01/17 07:20 Bedside Glucose 96 217 117 White Blood Count 3.7 L Red Blood Count 3.03 L Hemoglobin 9.0 L Hematocrit 27.3 L Mean Corpuscular Volume 90.1 Mean Corpuscular Hemoglobin 29.7 Mean Corpuscular Hemoglobin Concent 33.0 Red Cell Distribution Width 15.7 H Platelet Count 110 L Mean Platelet Volume 10.2 Neutrophils % 51.5 Lymphocytes % 39.5 Monocytes % 6.2 Eosinophils % 2.2 Basophils % 0.3 Nucleated Red Blood Cells % 0.0 Neutrophils # (Manual) 1.9 Lymphocytes # 1.5 Monocytes # 0.2 L Eosinophils # 0.1 Basophils # 0.0 Nucleated Red Blood Cells # 0.0 Sodium Level 139 Potassium Level 4.3 Chloride Level 109 Carbon Dioxide Level 25 Anion Gap 9 Blood Urea Nitrogen 5 L Creatinine 0.72 Glucose Level 114 Calcium Level 8.4 Test 01/01/17 07:40 01/01/17 11:31 Bedside Glucose 124 255 H Medications Medications Current Medications Morphine Sulfate (morphine) 2 mg Q4H PRN IV PAIN Last administered on 12/30/16 04:28; Admin Dose 2 MG; Start 12/28/16 at 12:30 Ondansetron HCl (Zofran Inj) 4 mg Q6H PRN IV NAUSEA AND/OR VOMITING; Start at 13:00 Morphine Sulfate (morphine) 2 mg Q4H PRN IV SEVERE PAIN LEVEL 7-10; Start 12/28 at 13:00 Diagnostic Test (Pha) (Accu-Chek) 1 ea 02 XX Last administered on 01/01/17 02: 00; Admin Dose 1 EA; Start 12/29/16 at 02:00 Fish Oil (Fish Oil) 1,000 mg BID PO Last administered on 01/01/17 08:24; Admin Dose 1,000 MG; Start 12/29/16 at 21:00 Miscellaneous Information 1 ea NOTE XX ; Start 12/29/16 at 17:30 Glucose (Glutose) 15 gm Q15M PRN PO DECREASED GLUCOSE; Start 12/29/16 at 17:30 Glucose (Glutose) 22.5 gm Q15M PRN PO DECREASED GLUCOSE; Start 12/29/16 at 17: 30 Dextrose (D50w Syringe) 25 ml Q15M PRN IV DECREASED GLUCOSE; Start 12/29/16 at 17:30 Dextrose (D50w Syringe) 50 ml Q15M PRN IV DECREASED GLUCOSE; Start 12/29/16 at 17:30 Glucagon (Glucagen) 1 mg Q15M PRN IM DECREASED GLUCOSE; Start 12/29/16 at 17:30 Glucose (Glutose) 15 gm Q15M PRN BUCCAL DECREASED GLUCOSE; Start 12/29/16 at 17 :30 Insulin Glargine (Lantus) 16 unit DAILY@08 SC Last administered on 01/01/17 08: 26; Admin Dose 16 UNIT; Start 12/31/16 at 08:00 Pantoprazole (Protonix Tab) 40 mg BID@06,18 PO Last administered on 01/01/17 06 :18; Admin Dose 40 MG; Start 12/31/16 at 18:00 Nadolol (Corgard) 20 mg BID PO ; Start 01/01/17 at 21:00 JUVENTINO MATAMOROS MD Jan 01, 2017 14:28
--- NOTE | 2017-01-01 16:50 | PN ---
Date/Time of Note Date/Time of Note DATE: 01/01/17 TIME: 16:46 Assessment/Plan VTE Prophylaxis VTE Prophylaxis Intervention: SCD's, other Lines/Catheters IV [facility]ter Type (from [facility]): [facility] Urinary Cath still in place: No Assessment/Plan Chief Complaint/Hosp Course 71 year old female with cryptogenic cirrhosis and liver mass. Per MRI, liver mass is likely dysplastic nodule and does not have appearance of HCC. AFP is less than 250 which again is not diagnostic of HCC. She needs close f/u with repeat MRI or CT triple phase for liver in 3 months. If any change needs biopsy. Discussed with patient and family member at bedside who understand. Problems: Subjective 24 Hr Interval Summary Free Text/Dictation Overall feels better. Abd pain improving. Wants to eat more than liquids. Exam/Review of Systems Vital Signs Vitals Vital Signs Date Time Temp Pulse Resp B/P Pulse Ox O2 Delivery O2 Flow Rate FiO2 01/01/17 16:06 97.7 65 17 117/64 97 12/30/16 19:39 Nasal Cannula 3.0 Intake and Output 12/31/16 12/31/16 01/01/17 15:00 23:00 07:00 Intake Total 100 ml 480 ml Balance 100 ml 480 ml Exam NAD Pale Abd soft, no mass, liver not palpable. No edema. Results Result Diagram: 01/01/17 0720 01/01/17 0720 Results 24 hrs Laboratory Tests Test 12/31/16 18:04 12/31/16 20:37 01/01/17 02:04 01/01/17 07:20 Bedside Glucose 96 217 117 White Blood Count 3.7 L Red Blood Count 3.03 L Hemoglobin 9.0 L Hematocrit 27.3 L Mean Corpuscular Volume 90.1 Mean Corpuscular Hemoglobin 29.7 Mean Corpuscular Hemoglobin Concent 33.0 Red Cell Distribution Width 15.7 H Platelet Count 110 L Mean Platelet Volume 10.2 Neutrophils % 51.5 Lymphocytes % 39.5 Monocytes % 6.2 Eosinophils % 2.2 Basophils % 0.3 Nucleated Red Blood Cells % 0.0 Neutrophils # (Manual) 1.9 Lymphocytes # 1.5 Monocytes # 0.2 L Eosinophils # 0.1 Basophils # 0.0 Nucleated Red Blood Cells # 0.0 Sodium Level 139 Potassium Level 4.3 Chloride Level 109 Carbon Dioxide Level 25 Anion Gap 9 Blood Urea Nitrogen 5 L Creatinine 0.72 Glucose Level 114 Calcium Level 8.4 Test 01/01/17 07:40 01/01/17 11:31 Bedside Glucose 124 255 H Medications Medications Current Medications Morphine Sulfate (morphine) 2 mg Q4H PRN IV PAIN Last administered on 12/30/16 04:28; Admin Dose 2 MG; Start 12/28/16 at 12:30 Ondansetron HCl (Zofran Inj) 4 mg Q6H PRN IV NAUSEA AND/OR VOMITING; Start at 13:00 Morphine Sulfate (morphine) 2 mg Q4H PRN IV SEVERE PAIN LEVEL 7-10; Start 12/28 at 13:00 Diagnostic Test (Pha) (Accu-Chek) 1 ea 02 XX Last administered on 01/01/17 02: 00; Admin Dose 1 EA; Start 12/29/16 at 02:00 Fish Oil (Fish Oil) 1,000 mg BID PO Last administered on 01/01/17 08:24; Admin Dose 1,000 MG; Start 12/29/16 at 21:00 Miscellaneous Information 1 ea NOTE XX ; Start 12/29/16 at 17:30 Glucose (Glutose) 15 gm Q15M PRN PO DECREASED GLUCOSE; Start 12/29/16 at 17:30 Glucose (Glutose) 22.5 gm Q15M PRN PO DECREASED GLUCOSE; Start 12/29/16 at 17: 30 Dextrose (D50w Syringe) 25 ml Q15M PRN IV DECREASED GLUCOSE; Start 12/29/16 at 17:30 Dextrose (D50w Syringe) 50 ml Q15M PRN IV DECREASED GLUCOSE; Start 12/29/16 at 17:30 Glucagon (Glucagen) 1 mg Q15M PRN IM DECREASED GLUCOSE; Start 12/29/16 at 17:30 Glucose (Glutose) 15 gm Q15M PRN BUCCAL DECREASED GLUCOSE; Start 12/29/16 at 17 :30 Insulin Glargine (Lantus) 16 unit DAILY@08 SC Last administered on 01/01/17 08: 26; Admin Dose 16 UNIT; Start 12/31/16 at 08:00 Pantoprazole (Protonix Tab) 40 mg BID@06,18 PO Last administered on 01/01/17 06 :18; Admin Dose 40 MG; Start 12/31/16 at 18:00 Nadolol (Corgard) 20 mg BID PO ; Start 01/01/17 at 21:00 SYED TURCIOS MD Jan 01, 2017 16:50
[2017-01-01] MEDS: NADOLOL 40 MG TAB PO SCH (20:30)
[2017-01-02] VITALS (14 sets, daily range): BP systolic 89–112; BP diastolic 51–79; PULSE 40–44; RESP 19–20
[2017-01-02] MEDS: ACCU-CHEK XX SCH (02:18)
[2017-01-02] MEDS: PANTOPRAZOLE (EC) 40 MG TAB PO SCH ×2 (05:12→17:36)
[2017-01-02] MEDS: Insulin NOVOLOG SS MILD Algorithm (SS with meals and bedtime) SC SCH ×4 (07:30→21:00)
[2017-01-02] MEDS: FISH OIL 1,000 MG CAP PO SCH ×2 (08:21→21:04)
[2017-01-02] MEDS: NADOLOL 40 MG TAB PO SCH (08:22)
[2017-01-02] MEDS: INSULIN GLARGINE [LANtus] 3 ML PEN SC SCH (08:25)
--- NOTE | 2017-01-02 11:57 | CONS ---
Date/Time of Note Date/Time of Note DATE: 01/02/17 TIME: 11:56 Assessment/Plan Assessment/Plan Chief Complaint/Hosp Course Assessment: 1. Cryptogenic cirrhosis 2. s/p EGD 12/30/16 that showed severe portal hypertensive gastropathy, moderate sized esophageal varices, gastric ulcer 3. s/p Colonoscopy 12/30/16 that showed diverticulosis of left colon. moderate sized internal hemorrhoids, cecal polyp s/p forcep polypectomy Recommendations: 1. f/u biopsy results 2. continue protonix 3. continue propranolol for management of esophageal varices. can titrate up to tid as tolerated by pulse and BP 4. ok from gi perspective to dc if ok with primary and other consultants 5. if not discharged, Dr. Restrepo to resume care tomorrow from GI perspective. Problems: Consultation Date/Type/Reason Admit Date/Time Dec 28, 2016 at 12:00 Initial Consult Date 12/29/16 Type of Consultation: GI Referring Provider: MARVA MENA NP 24 HR Interval Summary Free Text/Dictation hungry, wants to have more than liquid diet, no n/v, abdominal pain improved Constitutional: improved Exam/Review of Systems Vital Signs Vitals Vital Signs Date Time Temp Pulse Resp B/P Pulse Ox O2 Delivery O2 Flow Rate FiO2 01/02/17 11:43 98.2 43 20 106/56 98 12/30/16 19:39 Nasal Cannula 3.0 Intake and Output 01/01/17 01/01/17 01/02/17 15:00 23:00 07:00 Intake Total 900 ml Balance 900 ml Exam Constitutional: alert, oriented, well developed Psych: nl mood/affect, no complaints Head: atraumatic, normocephalic Eyes: EOMI, nl conjunctiva, nl lids, nl sclera ENMT: mucosa pink and moist, nl external ears & nose, nl lips & teeth, nl nasal mucosa & septum Neck: non-tender, supple Respiratory: clear to auscultation, normal air movement Cardiovascular: nl pulses, regular rate and rhythm Gastrointestinal: bowel sounds, non-tender, soft Results Result Diagram: 01/01/17 0720 01/01/17 0720 Results 24 hrs Laboratory Tests Test 01/01/17 17:20 01/01/17 20:29 01/02/17 01:46 01/02/17 08:19 Bedside Glucose 111 193 107 116 Medications Medications Current Medications Morphine Sulfate (morphine) 2 mg Q4H PRN IV PAIN Last administered on 12/30/16 04:28; Admin Dose 2 MG; Start 12/28/16 at 12:30 Ondansetron HCl (Zofran Inj) 4 mg Q6H PRN IV NAUSEA AND/OR VOMITING; Start at 13:00 Morphine Sulfate (morphine) 2 mg Q4H PRN IV SEVERE PAIN LEVEL 7-10; Start 12/28 at 13:00 Diagnostic Test (Pha) (Accu-Chek) 1 ea 02 XX Last administered on 01/02/17 02: 18; Admin Dose 1 EA; Start 12/29/16 at 02:00 Fish Oil (Fish Oil) 1,000 mg BID PO Last administered on 01/02/17 08:21; Admin Dose 1,000 MG; Start 12/29/16 at 21:00 Miscellaneous Information 1 ea NOTE XX ; Start 12/29/16 at 17:30 Glucose (Glutose) 15 gm Q15M PRN PO DECREASED GLUCOSE; Start 12/29/16 at 17:30 Glucose (Glutose) 22.5 gm Q15M PRN PO DECREASED GLUCOSE; Start 12/29/16 at 17: 30 Dextrose (D50w Syringe) 25 ml Q15M PRN IV DECREASED GLUCOSE; Start 12/29/16 at 17:30 Dextrose (D50w Syringe) 50 ml Q15M PRN IV DECREASED GLUCOSE; Start 12/29/16 at 17:30 Glucagon (Glucagen) 1 mg Q15M PRN IM DECREASED GLUCOSE; Start 12/29/16 at 17:30 Glucose (Glutose) 15 gm Q15M PRN BUCCAL DECREASED GLUCOSE; Start 12/29/16 at 17 :30 Insulin Glargine (Lantus) 16 unit DAILY@08 SC Last administered on 01/02/17 08: 25; Admin Dose 16 UNIT; Start 12/31/16 at 08:00 Pantoprazole (Protonix Tab) 40 mg BID@06,18 PO Last administered on 01/02/17 05 :12; Admin Dose 40 MG; Start 12/31/16 at 18:00 Nadolol (Corgard) 20 mg BID PO Last administered on 01/02/17 08:22; Admin Dose 20 MG; Start 01/01/17 at 21:00 DAMIEN CAMPBELL MD Jan 02, 2017 11:57
--- NOTE | 2017-01-02 12:52 | PN ---
Date/Time of Note Date/Time of Note DATE: 01/02/17 TIME: 12:39 Assessment/Plan VTE Prophylaxis VTE Prophylaxis Intervention: SCD's Lines/Catheters [facility] Urinary Cath still in place: No Assessment/Plan Assessment/Plan 1. GI bleeding due to gastric ulcer, s/p EGD/colonoscopy on 12/30/2016, on protonix 2. Cryptogenic liver cirrhosis with esophageal varices, on nadolol and protonix 3. Normocytic anemia, likely Acute on chronic anemia 2/2 blood loss, s/p PRBC, stable, iron supplement 4. Status post fall on abdomen with Syncope Vs Presyncope, anemia related 5. Hyperglycemia. on insulins 6. Obesity. 7. Sinus bradycardia, normal TSH, decrease nadolol, stop if still bradycardiac 8. VTE prophylaxis: SCDs Subjective 24 Hr Interval Summary Free Text/Dictation HR down to 41 Exam/Review of Systems Vital Signs Vitals Vital Signs Date Time Temp Pulse Resp B/P Pulse Ox O2 Delivery O2 Flow Rate FiO2 01/02/17 12:02 43 01/02/17 11:43 98.2 20 106/56 98 12/30/16 19:39 Nasal Cannula 3.0 Intake and Output 01/01/17 01/01/17 01/02/17 15:00 23:00 07:00 Intake Total 900 ml Balance 900 ml Exam Constitutional: alert, obese, oriented, well developed Head: atraumatic, normocephalic Eyes: EOMI, PERRL, nl conjunctiva, nl lids, nl sclera ENMT: mucosa pink and moist, nl external ears & nose, nl lips & teeth, nl nasal mucosa & septum Neck: non-tender, supple Respiratory: clear to auscultation, normal air movement, No congested cough, No crackles/rales, No diminished breath sounds, No intercostal retraction, No labored breathing, No other, No respirations, No tactile fremitus, No wheezing Cardiovascular: nl pulses, regular rate and rhythm, No S3, No S4, No bruits, No diastolic murmur, No edema, No gallop, No irregular rhythm, No jugular venous distention (JVD), No murmurs/extra sounds, No other, No rub, No systolic murmur Gastrointestinal: nl liver, spleen, non-tender, soft, No ascites, No bowel sounds, No distended, No firm, No hepatomegaly, No mass , No other, No rebound or guarding, No splenomegaly, No surgical scars, No tender Musculoskeletal: nl extremities to inspection Extremities: normal pulses, No calf tenderness, No clubbing, No cyanosis, No edema, No other, No palpable cord, No pitting pedal edema, No tenderness 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: 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 LINEMAN II-XII 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, nl mental status, nl speech, nl strength Skin: nl turgor Lymph: nl lymph nodes Results Result Diagram: 01/01/17 0720 01/01/17 0720 Results 24 hrs Laboratory Tests Test 01/01/17 17:20 01/01/17 20:29 01/02/17 01:46 01/02/17 08:19 Bedside Glucose 111 193 107 116 Test 01/02/17 12:16 Bedside Glucose 136 Medications Medications Current Medications Morphine Sulfate (morphine) 2 mg Q4H PRN IV PAIN Last administered on 12/30/16 04:28; Admin Dose 2 MG; Start 12/28/16 at 12:30 Ondansetron HCl (Zofran Inj) 4 mg Q6H PRN IV NAUSEA AND/OR VOMITING; Start at 13:00 Morphine Sulfate (morphine) 2 mg Q4H PRN IV SEVERE PAIN LEVEL 7-10; Start 12/28 at 13:00 Diagnostic Test (Pha) (Accu-Chek) 1 ea 02 XX Last administered on 01/02/17 02: 18; Admin Dose 1 EA; Start 12/29/16 at 02:00 Fish Oil (Fish Oil) 1,000 mg BID PO Last administered on 01/02/17 08:21; Admin Dose 1,000 MG; Start 12/29/16 at 21:00 Miscellaneous Information 1 ea NOTE XX ; Start 12/29/16 at 17:30 Glucose (Glutose) 15 gm Q15M PRN PO DECREASED GLUCOSE; Start 12/29/16 at 17:30 Glucose (Glutose) 22.5 gm Q15M PRN PO DECREASED GLUCOSE; Start 12/29/16 at 17: 30 Dextrose (D50w Syringe) 25 ml Q15M PRN IV DECREASED GLUCOSE; Start 12/29/16 at 17:30 Dextrose (D50w Syringe) 50 ml Q15M PRN IV DECREASED GLUCOSE; Start 12/29/16 at 17:30 Glucagon (Glucagen) 1 mg Q15M PRN IM DECREASED GLUCOSE; Start 12/29/16 at 17:30 Glucose (Glutose) 15 gm Q15M PRN BUCCAL DECREASED GLUCOSE; Start 12/29/16 at 17 :30 Insulin Glargine (Lantus) 16 unit DAILY@08 SC Last administered on 01/02/17 08: 25; Admin Dose 16 UNIT; Start 12/31/16 at 08:00 Pantoprazole (Protonix Tab) 40 mg BID@06,18 PO Last administered on 01/02/17 05 :12; Admin Dose 40 MG; Start 12/31/16 at 18:00 Nadolol (Corgard) 20 mg BID PO Last administered on 01/02/17 08:22; Admin Dose 20 MG; Start 01/01/17 at 21:00 TEZ OLVERA MD Jan 02, 2017 12:49
[2017-01-02] MEDS ORDERED: NADOLOL 40 MG TAB PO SCH (21:00)
[2017-01-03] VITALS (14 sets, daily range): BP systolic 48–110; BP diastolic 23–60; PULSE 36–74; RESP 18–20
[2017-01-03] MEDS: ACCU-CHEK XX SCH (02:00)
[2017-01-03] MEDS: PANTOPRAZOLE (EC) 40 MG TAB PO SCH ×2 (06:43→17:09)
[2017-01-03] MEDS: Insulin NOVOLOG SS MILD Algorithm (SS with meals and bedtime) SC SCH ×4 (07:30→21:00)
[2017-01-03 07:41] LABS: BASOPHILS % 0.3 % (0.0-2.0); EOSINOPHILS # 0.2 10^3/ul (0.0-0.5); EOSINOPHILS % 2.8 % (0.0-7.0); HEMATOCRIT 28.5 % (37.0-47.0); HEMOGLOBIN 9.5 g/dl (12.0-16.0); LYMPHOCYTES # 2.3 10^3/ul (0.8-2.9); LYMPHOCYTES % 40.1 % (15.0-51.0); MEAN CORPUSCULAR HEMOGLOBIN 30.3 pg (29.0-33.0); MEAN CORPUSCULAR HGB CONC 33.3 g/dl (32.0-37.0); MEAN CORPUSCULAR VOLUME 90.8 fl (82.0-101.0); MEAN PLATELET VOLUME 10.8 fl (7.4-10.4); MONOCYTE # 0.4 10^3/ul (0.3-0.9); MONOCYTES % 7.4 % (0.0-11.0); NEUTROPHILS % 48.9 % (39.0-77.0); PLATELET COUNT 159 10^3/UL (140-415); RED BLOOD COUNT 3.14 10^6/ul (4.20-5.40); RED CELL DISTRIBUTION WIDTH 15.5 % (11.5-14.5); WHITE BLOOD COUNT 5.8 10^3/ul (4.8-10.8)
[2017-01-03 08:00] LABS: ALBUMIN/GLOBULIN RATIO 0.83; BILIRUBIN,INDIRECT 0.5 mg/dl (0-1.1); BILIRUBIN,TOTAL 0.5 mg/dl (0.2-1.3); CALCIUM 8.9 mg/dl (8.4-10.2); CREATININE 0.77 mg/dl (0.44-1.00); TOTAL PROTEIN 6.6 g/dl (6.1-8.1)
[2017-01-03] MEDS: FISH OIL 1,000 MG CAP PO SCH ×2 (08:03→21:02)
[2017-01-03] MEDS: INSULIN GLARGINE [LANtus] 3 ML PEN SC SCH (08:07)
--- NOTE | 2017-01-03 08:47 | PN ---
DATE: 01/03/2017 TYPE OF CONSULTATION: Medical Oncology SUBJECTIVE: The patient has no complaints of pain. Appetite is good. She has no complaints of nausea or vomiting. OBJECTIVE: GENERAL: The patient is a well-developed, mildly obese female who is in no acute distress. VITAL SIGNS: Temperature 98.6. Pulse 45 per minute and regular. Respirations 20. Blood pressure 110/58. Pulse oximetry 96 percent on room air. SKIN: No ecchymosis and no petechiae or rashes. HEENT: No mucosal lesions. There is no scleral icterus. NECK: Supple. No jugular distention or thyroid enlargement. CHEST: Clear to auscultation and percussion. No rhonchi, wheezes, rales or rubs. NODES: No palpable lymphadenopathy in lymph node-bearing area. HEART: Bradycardia. No S3, S4, or murmurs. No rubs. ABDOMEN: Mildly obese, but soft. There are no masses or ascites. EXTREMITIES: Good range of motion. No clubbing, edema or cyanosis. No palpable cords or Homans sign. NEUROLOGIC: Normal. LABORATORY AND DIAGNOSTIC DATA: The patient has had an MRI of the liver, which shows changes most consistent with a "dysplastic nodule" which is 4.3 x 3.5 cm and does correspond to the lesion seen on CT scan. The patient has also undergone a colonoscopy and EGD. The EGD showed revealed severe portal hypertensive gastropathy and a gastric ulcer. Also, the colonoscopy shows moderate size internal hemorrhoids and diverticulosis. There was a cecal polyp which was removed as well. ASSESSMENT: 1. Cirrhosis with portal hypertension. 2. Gastrointestinal bleeding secondary to gastric ulcer. It is unclear at this time whether biopsies were taken of the ulcer. I do not feel that this patient has a hepatocellular carcinoma. 3. It should be noted that this patient's pulse rate has been recorded as being as low as 36 per minute within the past 24-36 hours. Dictated By: Gabriele Pozo MD /girma/natacha /Document#: [id number]
--- NOTE | 2017-01-03 14:33 | PN ---
Date/Time of Note Date/Time of Note DATE: 01/03/17 TIME: 14:14 Assessment/Plan VTE Prophylaxis VTE Prophylaxis Intervention: SCD's Lines/Catheters IV [facility] Type [facility] Saline Lock Urinary Cath still in place: No Assessment/Plan Chief Complaint/Hosp Course 1. Acute GI bleed danyelle 2/2 severe portal hypertensive gastropathy, moderate sized esophageal varices, gastric ulcer. Resolved Status post EGD 12/30/2016 with the above findings Status post colonoscopy 12/30/2016 with diverticulosis of left colon. moderate sized internal hemorrhoids, cecal polyp s/p forcep polypectomy -Continue with PPI. Monitor H&H. 2. H. pylori infection. Pathology report from EGD reviewed. -We are going to start patient on eradication treatment with clarithromycin based triple therapy. 3. Cryptogenic cirrhosis with portal hypertension. Will monitor. --Would not start any beta blockers secondary to symptomatic bradycardia. 4. Symptomatic Sinus bradycardia, likely secondary to nadolol effect. -Consult cardiology. -Avoid any beta blockers or AV loida blocking agents. 5. Acute blood loss anemia on top of anemia of chronic illness. Now stable. 6. Dysplastic liver nodule. Hematology evaluation appreciated and will monitor. 7. Orthostatic hypotension. Stable. Will monitor. 8. Type 2 diabetes. Needs more optimization. -Start pre-meal insulin 3 times daily with meals. Continue Accu-Cheks, ISS and Lantus. 9. Mild Encephalopathy, possibly hepatic. Currently at baseline -Will monitor 10.History of Dyslipidemia -Continue fish oil 11. Obesity. Will advise on therapeutic lifestyle changes upon discharge. 12. Thrombocytopenia. Resolved. -Monitor. VT prophylaxis: SCDs PUD prophylaxis: Protonix PLAN:F/u with cardiology recommendation. DISP:DC planning SNF VS ARU when medically stable. Will also check with patient and family preference. Case discussed with DR. Reilly Problems: Subjective 24 Hr Interval Summary Free Text/Dictation Patient with episodes of dizziness with bradycardia and hypotension. Exam/Review of Systems Vital Signs Vitals Vital Signs Date Time Temp Pulse Resp B/P Pulse Ox O2 Delivery O2 Flow Rate FiO2 01/03/17 12:15 98.0 20 20 88/57 98 12/30/16 19:39 Nasal Cannula 3.0 Intake and Output 01/02/17 01/02/17 01/03/17 15:00 23:00 07:00 Intake Total 900 ml 800 ml Balance 900 ml 800 ml Exam General: Obese female, not in any acute distress . HEENT: Normocephalic, Atraumatic, No laceration or hematoma; Eyes: PEERL, Conjunctiva clear, Anicteric sclera Neck: Supple without any lymphadenopathy, nontender, no JVD, no carotid bruits, trachea midline, no thyromegaly Cardiac: S1, S2 auscultated, regular rhythm and rate, no mumurs or gallop Pulmonary: Normal respiratory effort. Chest clear to auscultation bilaterally, no adventitious breath sounds GI: Abdomen obese to inspection. Soft, non tender, non- distended, no masses, no rebound tenderness or guarding. Bowel sounds active on all four quadrants Genitourinary: Deferred Extremities: No cyanosis, clubbing, or edema. Pulses [2+] bilaterally. Full ROM on all four extremities. No focal weakness appreciated. Neurologic: Awake and orientedx4 Skin: Dry, and intact. No ecchymosis, no rashes, or lesions Results Result Diagram: 01/03/17 0601/03/17 0630 Results 24 hrs Laboratory Tests Test 01/02/17 17:35 01/02/17 21:03 01/03/17 06:30 01/03/17 07:52 Bedside Glucose 202 169 124 White Blood Count 5.8 # Red Blood Count 3.14 L Hemoglobin 9.5 L Hematocrit 28.5 L Mean Corpuscular Volume 90.8 Mean Corpuscular Hemoglobin 30.3 Mean Corpuscular Hemoglobin Concent 33.3 Red Cell Distribution Width 15.5 H Platelet Count 159 # Mean Platelet Volume 10.8 H Neutrophils % 48.9 Lymphocytes % 40.1 Monocytes % 7.4 Eosinophils % 2.8 Basophils % 0.3 Nucleated Red Blood Cells % 0.0 Neutrophils # (Manual) 2.8 Lymphocytes # 2.3 Monocytes # 0.4 Eosinophils # 0.2 Basophils # 0.0 Nucleated Red Blood Cells # 0.0 Sodium Level 137 Potassium Level 4.0 Chloride Level 102 Carbon Dioxide Level 30 Anion Gap 9 Blood Urea Nitrogen 11 Creatinine 0.77 Glucose Level 108 Calcium Level 8.9 Total Bilirubin 0.5 Direct Bilirubin 0.00 Indirect Bilirubin 0.5 Aspartate Amino Transf (AST/SGOT) 112 H Alanine Aminotransferase (ALT/SGPT) 73 H Alkaline Phosphatase 186 H Total Protein 6.6 Albumin 3.0 L Globulin 3.60 H Albumin/Globulin Ratio 0.83 Test 01/03/17 11:49 Bedside Glucose 207 Medications Medications Current Medications Morphine Sulfate (morphine) 2 mg Q4H PRN IV PAIN Last administered on 12/30/16 04:28; Admin Dose 2 MG; Start 12/28/16 at 12:30 Ondansetron HCl (Zofran Inj) 4 mg Q6H PRN IV NAUSEA AND/OR VOMITING; Start at 13:00 Morphine Sulfate (morphine) 2 mg Q4H PRN IV SEVERE PAIN LEVEL 7-10; Start 12/28 at 13:00 Diagnostic Test (Pha) (Accu-Chek) 1 ea 02 XX Last administered on 01/02/17 02: 18; Admin Dose 1 EA; Start 12/29/16 at 02:00 Fish Oil (Fish Oil) 1,000 mg BID PO Last administered on 01/03/17 08:03; Admin Dose 1,000 MG; Start 12/29/16 at 21:00 Miscellaneous Information 1 ea NOTE XX ; Start 12/29/16 at 17:30 Glucose (Glutose) 15 gm Q15M PRN PO DECREASED GLUCOSE; Start 12/29/16 at 17:30 Glucose (Glutose) 22.5 gm Q15M PRN PO DECREASED GLUCOSE; Start 12/29/16 at 17: 30 Dextrose (D50w Syringe) 25 ml Q15M PRN IV DECREASED GLUCOSE; Start 12/29/16 at 17:30 Dextrose (D50w Syringe) 50 ml Q15M PRN IV DECREASED GLUCOSE; Start 12/29/16 at 17:30 Glucagon (Glucagen) 1 mg Q15M PRN IM DECREASED GLUCOSE; Start 12/29/16 at 17:30 Glucose (Glutose) 15 gm Q15M PRN BUCCAL DECREASED GLUCOSE; Start 12/29/16 at 17 :30 Insulin Glargine (Lantus) 16 unit DAILY@08 SC Last administered on 01/03/17 08: 07; Admin Dose 16 UNIT; Start 12/31/16 at 08:00 Pantoprazole (Protonix Tab) 40 mg BID@06,18 PO Last administered on 01/03/17 06 :43; Admin Dose 40 MG; Start 12/31/16 at 18:00 MARVA MENA NP Jan 03, 2017 14:25
--- NOTE | 2017-01-03 16:52 | CONS ---
Date/Time of Note Date/Time of Note DATE: 01/03/17 TIME: 16:43 Assessment/Plan Assessment/Plan Additional Assessment/Plan Sinus bradycardia with recent beta-david use Orthostatic hypotension Preserved ejection fraction Liver cirrhosis with portal hypertension -On review of patient's medication list, patient was on nadolol, a beta-david through yesterday. This has been stopped. Patient with bradycardia noted on telemetry but remained sinus bradycardia, lowest heart rate seen in the past 24 hours 39 bpm overnight. In discussion with nurse, patient went from sitting to standing, blood pressure systolic dropped to the 40s patient was symptomatic. Heart rate was unknown at that time. I would give gentle IV hydration, hold any antihypertensives and or any AV loida blocking agents. Continue telemetry monitoring. Consultation Date/Type/Reason Admit Date/Time Dec 28, 2016 at 12:00 Type of Consultation: cv Reason for Consultation Bradycardia and hypotension Hx of Present Illness This is a 71-year-old female presented with syncope, nausea not feeling well. In discussion with patient via referral and information aide, patient woke up in the middle of the night to use the bathroom. When she stood up, she became lightheaded and had a syncopal episode. She denies any chest pain or shortness of breath. She does complain of episodes of lightheadedness with standing up at times which has worsened. She cannot quantify how long this is been going on. She denies any symptoms of dizziness or lightheadedness with activity. Patient has been going up GI workup for possible liver mass and evidence of cirrhosis and portal hypertension. On telemetry, patient furthermore found to be bradycardic and for the above reasons cardiology consultation was requested. 12 point review of systems was performed with all pertinent positives and negatives mentioned above and all else is negative Constitutional: improved Eyes: no complaints ENT: no complaints Respiratory: no complaints Cardiovascular: no complaints Gastrointestinal: pain (Describes colicky pain in the abdomen) Genitourinary: no complaints Musculoskeletal: no complaints Skin: no complaints Neurologic: no complaints Endocrine: no complaints Lymphatic: no complaints Psychological: nl mood/affect, no complaints Immunologic: no complaints Past Medical History Liver cirrhosis Family History Significant Family History: no pertinent family hx Social History Smoking Status: Never smoker Other Social History Lives at home Exam/Review of Systems Vital Signs Vitals Vital Signs Date Time Temp Pulse Resp B/P Pulse Ox O2 Delivery O2 Flow Rate FiO2 01/03/17 16:23 98.4 50 20 106/56 98 12/30/16 19:39 Nasal Cannula 3.0 Intake and Output 01/02/17 01/02/17 01/03/17 15:00 23:00 07:00 Intake Total 900 ml 800 ml Balance 900 ml 800 ml Exam No apparent distress Constitutional: alert, oriented Head: normocephalic Neck: supple Respiratory: other (Coarse breath sounds bilaterally, no wheezing) Cardiovascular: other (S1-S2 heard), regular rate and rhythm (Bradycardic) Gastrointestinal: bowel sounds, non-tender, other (No guarding), soft Extremities: edema Results Result Diagram: 01/03/17 0630 01/03/17 0630 Results 24 hrs Laboratory Tests Test 01/02/17 17:35 01/02/17 21:03 01/03/17 06:30 01/03/17 07:52 Bedside Glucose 202 169 124 White Blood Count 5.8 # Red Blood Count 3.14 L Hemoglobin 9.5 L Hematocrit 28.5 L Mean Corpuscular Volume 90.8 Mean Corpuscular Hemoglobin 30.3 Mean Corpuscular Hemoglobin Concent 33.3 Red Cell Distribution Width 15.5 H Platelet Count 159 # Mean Platelet Volume 10.8 H Neutrophils % 48.9 Lymphocytes % 40.1 Monocytes % 7.4 Eosinophils % 2.8 Basophils % 0.3 Nucleated Red Blood Cells % 0.0 Neutrophils # (Manual) 2.8 Lymphocytes # 2.3 Monocytes # 0.4 Eosinophils # 0.2 Basophils # 0.0 Nucleated Red Blood Cells # 0.0 Sodium Level 137 Potassium Level 4.0 Chloride Level 102 Carbon Dioxide Level 30 Anion Gap 9 Blood Urea Nitrogen 11 Creatinine 0.77 Glucose Level 108 Calcium Level 8.9 Total Bilirubin 0.5 Direct Bilirubin 0.00 Indirect Bilirubin 0.5 Aspartate Amino Transf (AST/SGOT) 112 H Alanine Aminotransferase (ALT/SGPT) 73 H Alkaline Phosphatase 186 H Total Protein 6.6 Albumin 3.0 L Globulin 3.60 H Albumin/Globulin Ratio 0.83 Test 01/03/17 11:49 Bedside Glucose 207 Medications Medications Current Medications Morphine Sulfate (morphine) 2 mg Q4H PRN IV PAIN Last administered on 12/30/16t 04:28; Admin Dose 2 MG; Start 12/28/16 at 12:30 Ondansetron HCl (Zofran Inj) 4 mg Q6H PRN IV NAUSEA AND/OR VOMITING; Start at 13:00 Morphine Sulfate (morphine) 2 mg Q4H PRN IV SEVERE PAIN LEVEL 7-10; Start 12/28 at 13:00 Diagnostic Test (Pha) (Accu-Chek) 1 ea 02 XX Last administered on 01/02/17 02: 18; Admin Dose 1 EA; Start 12/29/16 at 02:00 Fish Oil (Fish Oil) 1,000 mg BID PO Last administered on 01/03/17 08:03; Admin Dose 1,000 MG; Start 12/29/16 at 21:00 Miscellaneous Information 1 ea NOTE XX ; Start 12/29/16 at 17:30 Glucose (Glutose) 15 gm Q15M PRN PO DECREASED GLUCOSE; Start 12/29/16 at 17:30 Glucose (Glutose) 22.5 gm Q15M PRN PO DECREASED GLUCOSE; Start 12/29/16 at 17: 30 Dextrose (D50w Syringe) 25 ml Q15M PRN IV DECREASED GLUCOSE; Start 12/29/16 at 17:30 Dextrose (D50w Syringe) 50 ml Q15M PRN IV DECREASED GLUCOSE; Start 12/29/16 at 17:30 Glucagon (Glucagen) 1 mg Q15M PRN IM DECREASED GLUCOSE; Start 12/29/16 at 17:30 Glucose (Glutose) 15 gm Q15M PRN BUCCAL DECREASED GLUCOSE; Start 12/29/16 at 17 :30 Insulin Glargine (Lantus) 16 unit DAILY@08 SC Last administered on 01/03/17 08: 07; Admin Dose 16 UNIT; Start 12/31/16 at 08:00 Pantoprazole (Protonix Tab) 40 mg BID@06,18 PO Last administered on 01/03/17 06 :43; Admin Dose 40 MG; Start 12/31/16 at 18:00 Amoxicillin (Amoxicillin) 1,000 mg BID PO ; Start 01/03/17 at 21:00; Stop at 20:59 Clarithromycin (Biaxin) 500 mg BID PO ; Start 01/03/17 at 21:00; Stop 01/17/17 at 20:59 Procedures Procedures ECG done today demonstrates sinus bradycardia at 48 bpm, QRS 88 ms, nonspecific T-wave abnormalities ECG done December 28, 2016 demonstrates sinus rhythm at 97 bpm Ivan Amanda DO Jan 03, 2017 16:52
[2017-01-03] MEDS ORDERED: SOD CHLORIDE 0.9% 250 ML IV ONE (17:00)
[2017-01-03] MEDS ORDERED: SOD CHLORIDE 0.9% 1,000 ML IV SCH (17:00)
[2017-01-03] MEDS: INSULIN ASPART [NOVOLOG] 3 ML PEN SC SCH (17:16)
[2017-01-03] MEDS: REPAGLINIDE 2 MG TAB PO SCH (17:32)
[2017-01-03] MEDS: AMOXICILLIN 500 MG CAP PO SCH (21:02)
[2017-01-03] MEDS: CLARITHROMYCIN 500 MG TAB PO SCH (21:02)
[2017-01-04] VITALS (12 sets, daily range): BP systolic 90–134; BP diastolic 53–74; PULSE 40–54; RESP 17–18
[2017-01-04] MEDS: ACCU-CHEK XX SCH (02:00)
[2017-01-04] MEDS: PANTOPRAZOLE (EC) 40 MG TAB PO SCH ×2 (06:26→17:41)
[2017-01-04] MEDS: Insulin NOVOLOG SS MILD Algorithm (SS with meals and bedtime) SC SCH ×4 (07:30→20:08)
[2017-01-04] MEDS: INSULIN ASPART [NOVOLOG] 3 ML PEN SC SCH ×3 (08:00→17:49)
[2017-01-04] MEDS: FISH OIL 1,000 MG CAP PO SCH ×2 (08:16→20:08)
[2017-01-04] MEDS: CLARITHROMYCIN 500 MG TAB PO SCH ×2 (08:16→20:08)
[2017-01-04] MEDS: REPAGLINIDE 2 MG TAB PO SCH ×3 (08:17→17:41)
[2017-01-04] MEDS: AMOXICILLIN 500 MG CAP PO SCH ×2 (08:18→20:08)
[2017-01-04] MEDS: INSULIN GLARGINE [LANtus] 3 ML PEN SC SCH (08:23)
--- NOTE | 2017-01-04 08:42 | PN ---
DATE: 01/04/2017 SUBJECTIVE DATA: The patient has no new complaints. No chest pain. No shortness of breath. She has had no complaints of further syncopal episodes. No orthostatic symptoms. OBJECTIVE DATA: GENERAL: The patient is a well-developed, well-nourished female, who is mildly obese and in no acute distress. VITAL SIGNS: Temperature 98.4, pulse 60 per minute and regular, respirations 18 and blood pressure 120/62, pulse oximetry 94 percent on room air. SKIN: No ecchymoses, no petechiae or rashes. HEENT: Normocephalic. No evidence of trauma. Pupils equal, round, reactive to light and accommodation. No scleral icterus. Oral mucosa is moist without lesions. NECK: Supple. No jugular distention, or thyroid enlargement. CHEST: Clear to auscultation and percussion. No rhonchi, wheezes, rales, or rubs. No pain on percussion of spine, sternum, clavicles or ribs. HEART: Regular sinus rhythm. No S3, S4, or murmurs. ABDOMEN: Soft. There are no masses or ascites. Mild obesity. Bowel sounds are active. EXTREMITIES: Good range of motion. No clubbing, edema, or cyanosis. No palpable cords or Homans sign. NEUROLOGIC: Normal. LABORATORY AND DIAGNOSTIC DATA: There is no laboratory done this morning. ASSESSMENT: 1. Cirrhosis with portal hypertension. 2. Possible gastrointestinal bleeding secondary to gastric ulcer. 3. Sinus bradycardia. DISCUSSION: The patient has been seen in consultation by Dr. Amanda, has been taken off the beta david. In spite of the fact that the patient does have a gastric ulcer, she is not obviously iron deficient. On admission, the patient's MCV was 92, MCH was 30.3, MCHC 32.9, and RDW 14.6. The patient's iron studies at the time of admission also were somewhat unusual with a serum iron of 155, iron-binding capacity of 317, and saturation of 49 percent. This is not certainly consistent with iron deficiency and is consistent with the patient's underlying liver disease. We will repeat iron studies at this time, including a ferritin. As previously noted, the MRI and the alpha-fetoprotein levels are not consistent with a primary hepatocellular carcinoma. These, however, should be monitored as the patient is at risk due to her cirrhotic condition. Dictated By: Gabriele Pozo MD /girma/jong /Document#: [id number]
--- NOTE | 2017-01-04 14:41 | PN ---
Date/Time of Note Date/Time of Note DATE: 01/04/17 TIME: 14:38 Assessment/Plan VTE Prophylaxis VTE Prophylaxis Intervention: SCD's Lines/Catheters IV [facility]ter Type (from [email or web address] Saline Lock Urinary Cath still in place: No Assessment/Plan Assessment/Plan Assessment * Cryptogenic cirrhosis s/p EGD 12/30/16 that showed severe portal hypertensive gastropathy, moderate sized esophageal varices, gastric ulcer . s/p Colonoscopy 12/30/16 that showed diverticulosis of left colon. moderate sized internal hemorrhoids, cecal polyp s/p forcep polypectomy Plan * Continue present management * case discussed with Dr Restrepo * further orders will depend on clinical course Subjective 24 Hr Interval Summary Free Text/Dictation * course reviewed with RN * Patient seen and examined * No untoward incident overnight Exam/Review of Systems Vital Signs Vitals Vital Signs Date Time Temp Pulse Resp B/P Pulse Ox O2 Delivery O2 Flow Rate FiO2 01/04/17 12:22 47 01/04/17 11:26 97.7 18 96/57 95 Intake and Output 01/03/17 01/03/17 01/04/17 15:00 23:00 07:00 Intake Total 800 ml Balance 800 ml Exam Constitutional: alert, frail Neck: non-tender, supple Respiratory: clear to auscultation, normal air movement Cardiovascular: nl pulses, regular rate and rhythm Gastrointestinal: non-tender, soft Musculoskeletal: nl extremities to inspection Extremities: normal pulses 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: nl speech, nl strength Results Result Diagram: 01/03/17 0630 01/03/17 0630 Results 24 hrs Laboratory Tests Test 01/03/17 17:12 01/03/17 21:01 01/04/17 07:59 01/04/17 11:48 Bedside Glucose 206 154 98 143 Medications Medications Current Medications Morphine Sulfate (morphine) 2 mg Q4H PRN IV PAIN Last administered on 12/30/16t 04:28; Admin Dose 2 MG; Start 12/28/16 at 12:30 Ondansetron HCl (Zofran Inj) 4 mg Q6H PRN IV NAUSEA AND/OR VOMITING; Start at 13:00 Morphine Sulfate (morphine) 2 mg Q4H PRN IV SEVERE PAIN LEVEL 7-10; Start 12/28 at 13:00 Diagnostic Test (Pha) (Accu-Chek) 1 02 XX Last administered on 01/02/17 02: 18; Admin Dose 1 EA; Start 12/29/16 at 02:00 Fish Oil (Fish Oil) 1,000 mg BID PO Last administered on 01/04/17 08:16; Admin Dose 1,000 MG; Start 12/29/16 at 21:00 Miscellaneous Information 1 ea NOTE XX ; Start 12/29/16 at 17:30 Glucose (Glutose) 15 gm Q15M PRN PO DECREASED GLUCOSE; Start 12/29/16 at 17:30 Glucose (Glutose) 22.5 gm Q15M PRN PO DECREASED GLUCOSE; Start 12/29/16 at 17: 30 Dextrose (D50w Syringe) 25 ml Q15M PRN IV DECREASED GLUCOSE; Start 12/29/16 at 17:30 Dextrose (D50w Syringe) 50 ml Q15M PRN IV DECREASED GLUCOSE; Start 12/29/16 at 17:30 Glucagon (Glucagen) 1 mg Q15M PRN IM DECREASED GLUCOSE; Start 12/29/16 at 17:30 Glucose (Glutose) 15 gm Q15M PRN BUCCAL DECREASED GLUCOSE; Start 12/29/16 at 17 :30 Insulin Glargine (Lantus) 16 unit DAILY@08 SC Last administered on 01/04/17 08: 23; Admin Dose 16 UNIT; Start 12/31/16 at 08:00 Pantoprazole (Protonix Tab) 40 mg BID@06,18 PO Last administered on 01/04/17 06 :26; Admin Dose 40 MG; Start 12/31/16 at 18:00 Amoxicillin (Amoxicillin) 1,000 mg BID PO Last administered on 01/04/17 08:18; Admin Dose 1,000 MG; Start 01/03/17 at 21:00; Stop 01/17/17 at 20:59 Clarithromycin (Biaxin) 500 mg BID PO Last administered on 01/04/17 08:16; Admin Dose 500 MG; Start 01/03/17 at 21:00; Stop 01/17/17 at 20:59 MIA CASTRO NP Jan 04, 2017 14:41
--- NOTE | 2017-01-04 15:13 | PN ---
Date/Time of Note Date/Time of Note DATE: 01/04/17 TIME: 15:08 Assessment/Plan VTE Prophylaxis VTE Prophylaxis Intervention: ambulation, SCD's Lines/Catheters IV [facility]ter Type (from [facility]): Saline Lock Urinary Cath still in place: No Assessment/Plan Chief Complaint/Hosp Course 1. Acute GI bleed danyelle 2/2 severe portal hypertensive gastropathy, moderate sized esophageal varices, gastric ulcer. Resolved Status post EGD 12/30/2016 with the above findings Status post colonoscopy 12/30/2016 with diverticulosis of left colon. moderate sized internal hemorrhoids, cecal polyp s/p forcep polypectomy -Continue with PPI. Monitor H&H. 2. H. pylori infection. Pathology report from EGD reviewed. -Started on clarithromycin based triple therapy.(stop date 01/17/17) 3. Cryptogenic cirrhosis with portal hypertension. Will monitor. --Would not start any beta blockers secondary to symptomatic bradycardia. 4. Symptomatic Sinus bradycardia with Orthostatic hypotension, likely secondary to nadolol effect. With PT, patient drops BP. -Cards eval appreciated -Avoid any beta blockers or AV loida blocking agents. 5. Acute blood loss anemia on top of anemia of chronic illness. Now stable. 6. Dysplastic liver nodule. Hematology evaluation appreciated and will monitor. 7. Type 2 diabetes. Needs more optimization. -Continue Accu-Cheks, ISS,premeals and Lantus. 8. Mild Encephalopathy, possibly hepatic. Currently at baseline -Will monitor 9.History of Dyslipidemia -Continue fish oil 10. Obesity. Will advise on therapeutic lifestyle changes upon discharge. 11. Thrombocytopenia. Resolved. -Monitor. VT prophylaxis: SCDs PUD prophylaxis: Protonix PLAN:F/u with cardiology recommendation. DISP: Patient with ongoing positional hypotension with PT activities.She needs a slow-paced PT and would benefit a DC planning to SNF when medically stable. ARU rehab program will be too high for her at this time. Will also check with patient and family preference. Case discussed with DR. Reilly Problems: Subjective 24 Hr Interval Summary Free Text/Dictation Patient with slow participation in PT activities. HR improved Exam/Review of Systems Vital Signs Vitals Vital Signs Date Time Temp Pulse Resp B/P Pulse Ox O2 Delivery O2 Flow Rate FiO2 01/04/17 12:22 47 01/04/17 11:26 97.7 18 96/57 95 Intake and Output 01/03/17 01/03/17 01/04/17 15:00 23:00 07:00 Intake Total 800 ml Balance 800 ml Exam General: Obese female, not in any acute distress . HEENT: Normocephalic, Atraumatic, No laceration or hematoma; Eyes: PEERL, Conjunctiva clear, Anicteric sclera Neck: Supple without any lymphadenopathy, nontender, no JVD, no carotid bruits, trachea midline, no thyromegaly Cardiac: S1, S2 auscultated, regular rhythm and rate, no mumurs or gallop Pulmonary: Normal respiratory effort. Chest clear to auscultation bilaterally, no adventitious breath sounds GI: Abdomen obese to inspection. Soft, non tender, non- distended, no masses, no rebound tenderness or guarding. Bowel sounds active on all four quadrants Genitourinary: Deferred Extremities: No cyanosis, clubbing, or edema. Pulses [2+] bilaterally. Full ROM on all four extremities. No focal weakness appreciated. Neurologic: Awake and orientedx4 Skin: Dry, and intact. No ecchymosis, no rashes, or lesions Results Result Diagram: 01/03/17 0630 01/03/17 0630 Results 24 hrs Laboratory Tests Test 01/03/17 17:12 01/03/17 21:01 01/04/17 07:59 01/04/17 11:48 Bedside Glucose 206 154 98 143 Medications Medications Current Medications Morphine Sulfate (morphine) 2 mg Q4H PRN IV PAIN Last administered on 12/30/16 04:28; Admin Dose 2 MG; Start 12/28/16 at 12:30 Ondansetron HCl (Zofran Inj) 4 mg Q6H PRN IV NAUSEA AND/OR VOMITING; Start at 13:00 Morphine Sulfate (morphine) 2 mg Q4H PRN IV SEVERE PAIN LEVEL 7-10; Start 12/28 at 13:00 Diagnostic Test (Pha) (Accu-Chek) 1 ea 02 XX Last administered on 01/02/17 02: 18; Admin Dose 1 EA; Start 12/29/16 at 02:00 Fish Oil (Fish Oil) 1,000 mg BID PO Last administered on 01/04/17 08:16; Admin Dose 1,000 MG; Start 12/29/16 at 21:00 Miscellaneous Information 1 ea NOTE XX ; Start 12/29/16 at 17:30 Glucose (Glutose) 15 gm Q15M PRN PO DECREASED GLUCOSE; Start 12/29/16 at 17:30 Glucose (Glutose) 22.5 gm Q15M PRN PO DECREASED GLUCOSE; Start 12/29/16 at 17: 30 Dextrose (D50w Syringe) 25 ml Q15M PRN IV DECREASED GLUCOSE; Start 12/29/16 at 17:30 Dextrose (D50w Syringe) 50 ml Q15M PRN IV DECREASED GLUCOSE; Start 12/29/16 at 17:30 Glucagon (Glucagen) 1 mg Q15M PRN IM DECREASED GLUCOSE; Start 12/29/16 at 17:30 Glucose (Glutose) 15 gm Q15M PRN BUCCAL DECREASED GLUCOSE; Start 12/29/16 at 17 :30 Insulin Glargine (Lantus) 16 unit DAILY@08 SC Last administered on 01/04/17 08: 23; Admin Dose 16 UNIT; Start 12/31/16 at 08:00 Pantoprazole (Protonix Tab) 40 mg BID@06,18 PO Last administered on 01/04/17 06 :26; Admin Dose 40 MG; Start 12/31/16 at 18:00 Amoxicillin (Amoxicillin) 1,000 mg BID PO Last administered on 01/04/17 08:18; Admin Dose 1,000 MG; Start 01/03/17 at 21:00; Stop 01/17/17 at 20:59 Clarithromycin (Biaxin) 500 mg BID PO Last administered on 01/04/17 08:16; Admin Dose 500 MG; Start 01/03/17 at 21:00; Stop 01/17/17 at 20:59 MARVA MENA NP Jan 04, 2017 15:13
--- NOTE | 2017-01-04 16:04 | CONS ---
Date/Time of Note Date/Time of Note DATE: 01/04/17 TIME: 15:58 Assessment/Plan Assessment/Plan Additional Assessment/Plan Sinus bradycardia with recent beta-david use Orthostatic hypotension Preserved ejection fraction Liver cirrhosis with portal hypertension -Patient less symptomatic with ambulation and standing up. We will continue to hold beta-david. No need for pacemaker at the current time. Consultation Date/Type/Reason Admit Date/Time Dec 28, 2016 at 12:00 Initial Consult Date 12/29/16 Type of Consultation: cv Referring Provider: MARVA MEAN NP 24 HR Interval Summary Free Text/Dictation Feeling better today. Denies shortness of breath, less dizziness with getting up Exam/Review of Systems Vital Signs Vitals Vital Signs Date Time Temp Pulse Resp B/P Pulse Ox O2 Delivery O2 Flow Rate FiO2 01/04/17 15:24 98.6 50 18 90/53 95 Intake and Output 01/03/17 01/03/17 01/04/17 15:00 23:00 07:00 Intake Total 800 ml Balance 800 ml Exam No apparent distress Constitutional: alert, obese, oriented Head: normocephalic Respiratory: other (Coarse breath sounds bilaterally, no wheezing) Cardiovascular: other (S1-S2 heard), regular rate and rhythm Gastrointestinal: bowel sounds, non-tender, soft Extremities: edema (Trace) Results Result Diagram: 01/03/17 0630 01/03/17 0630 Results 24 hrs Laboratory Tests Test 01/03/17 17:12 01/03/17 21:01 01/04/17 07:59 01/04/17 11:48 Bedside Glucose 206 154 98 143 Medications Medications Current Medications Morphine Sulfate (morphine) 2 mg Q4H PRN IV PAIN Last administered on 12/30/16 04:28; Admin Dose 2 MG; Start 12/28/16 at 12:30 Ondansetron HCl (Zofran Inj) 4 mg Q6H PRN IV NAUSEA AND/OR VOMITING; Start at 13:00 Morphine Sulfate (morphine) 2 mg Q4H PRN IV SEVERE PAIN LEVEL 7-10; Start 12/28 at 13:00 Diagnostic Test (Pha) (Accu-Chek) 1 ea 02 XX Last administered on 01/02/17 02: 18; Admin Dose 1 EA; Start 12/29/16 at 02:00 Fish Oil (Fish Oil) 1,000 mg BID PO Last administered on 01/04/17 08:16; Admin Dose 1,000 MG; Start 12/29/16 at 21:00 Miscellaneous Information 1 ea NOTE XX ; Start 12/29/16 at 17:30 Glucose (Glutose) 15 gm Q15M PRN PO DECREASED GLUCOSE; Start 12/29/16 at 17:30 Glucose (Glutose) 22.5 gm Q15M PRN PO DECREASED GLUCOSE; Start 12/29/16 at 17: 30 Dextrose (D50w Syringe) 25 ml Q15M PRN IV DECREASED GLUCOSE; Start 12/29/16 at 17:30 Dextrose (D50w Syringe) 50 ml Q15M PRN IV DECREASED GLUCOSE; Start 12/29/16 at 17:30 Glucagon (Glucagen) 1 mg Q15M PRN IM DECREASED GLUCOSE; Start 12/29/16 at 17:30 Glucose (Glutose) 15 gm Q15M PRN BUCCAL DECREASED GLUCOSE; Start 12/29/16 at 17 :30 Insulin Glargine (Lantus) 16 unit DAILY@08 SC Last administered on 01/04/17 08: 23; Admin Dose 16 UNIT; Start 12/31/16 at 08:00 Pantoprazole (Protonix Tab) 40 mg BID@06,18 PO Last administered on 01/04/17 06 :26; Admin Dose 40 MG; Start 12/31/16 at 18:00 Amoxicillin (Amoxicillin) 1,000 mg BID PO Last administered on 01/04/17 08:18; Admin Dose 1,000 MG; Start 01/03/17 at 21:00; Stop 01/17/17 at 20:59 Clarithromycin (Biaxin) 500 mg BID PO Last administered on 01/04/17 08:16; Admin Dose 500 MG; Start 01/03/17 at 21:00; Stop 01/17/17 at 20:59 Ivan Amanda DO Jan 04, 2017 16:04
--- NOTE | 2017-01-04 19:17 | RADRPT ---
Vent Rate: 48 bpm RR Interval: 0 msec [place] Interval: 202 msec QRS Duration: 88 msec QT Interval: 476 msec QTC Interval: 425 msec P-R-T [place]: 66 - 47 - 89 degrees Marked sinus bradycardia Nonspecific T wave abnormality Abnormal ECG Electronically Signed By: Evgeny Miller [id number]
[2017-01-05] VITALS (10 sets, daily range): BP systolic 102–148; BP diastolic 59–77; PULSE 40–55; RESP 17–18
[2017-01-05] MEDS: ACCU-CHEK XX SCH (02:00)
[2017-01-05] MEDS: PANTOPRAZOLE (EC) 40 MG TAB PO SCH ×2 (06:00→17:02)
[2017-01-05] MEDS: Insulin NOVOLOG SS MILD Algorithm (SS with meals and bedtime) SC SCH ×4 (07:30→20:23)
[2017-01-05] MEDS: INSULIN ASPART [NOVOLOG] 3 ML PEN SC SCH (08:00)
[2017-01-05] MEDS: INSULIN GLARGINE [LANtus] 3 ML PEN SC SCH (08:00)
[2017-01-05] MEDS: CLARITHROMYCIN 500 MG TAB PO SCH ×2 (08:34→20:20)
[2017-01-05] MEDS: FISH OIL 1,000 MG CAP PO SCH ×2 (08:34→20:20)
[2017-01-05] MEDS: AMOXICILLIN 500 MG CAP PO SCH ×2 (08:34→20:20)
[2017-01-05 08:35] LABS: BASOPHILS % 0.3 % (0.0-2.0); EOSINOPHILS # 0.1 10^3/ul (0.0-0.5); EOSINOPHILS % 1.8 % (0.0-7.0); HEMATOCRIT 29.5 % (37.0-47.0); HEMOGLOBIN 9.6 g/dl (12.0-16.0); LYMPHOCYTES # 1.6 10^3/ul (0.8-2.9); LYMPHOCYTES % 41.2 % (15.0-51.0); MEAN CORPUSCULAR HGB CONC 32.5 g/dl (32.0-37.0); MEAN CORPUSCULAR VOLUME 92.2 fl (82.0-101.0); MEAN PLATELET VOLUME 10.2 fl (7.4-10.4); MONOCYTE # 0.3 10^3/ul (0.3-0.9); NEUTROPHILS % 49.4 % (39.0-77.0); PLATELET COUNT 159 10^3/UL (140-415); RED CELL DISTRIBUTION WIDTH 14.9 % (11.5-14.5); WHITE BLOOD COUNT 3.9 10^3/ul (4.8-10.8)
[2017-01-05] MEDS: REPAGLINIDE 2 MG TAB PO SCH ×3 (08:42→17:50)
[2017-01-05 08:58] LABS: IRON 32 ug/dl (35-150)
[2017-01-05] MEDS ORDERED: INSULIN GLARGINE [LANtus] 3 ML PEN SC ONE (09:00)
[2017-01-05 09:08] LABS: TOTAL IRON BINDING CAPACITY 346 ug/dl (241-421)
--- NOTE | 2017-01-05 11:58 | PN ---
Date/Time of Note Date/Time of Note DATE: 01/05/17 TIME: 11:47 Assessment/Plan VTE Prophylaxis VTE Prophylaxis Intervention: SCD's Lines/Catheters IV C[facility]ter Type (from [facility]): [facility] Urinary Cath still in place: No Assessment/Plan Chief Complaint/Hosp Course 1. Acute GI bleed danyelle 2/2 severe portal hypertensive gastropathy, moderate sized esophageal varices, gastric ulcer. Resolved Status post EGD 12/30/2016 with the above findings Status post colonoscopy 12/30/2016 with diverticulosis of left colon. moderate sized internal hemorrhoids, cecal polyp s/p forcep polypectomy -Continue with PPI. Monitor H&H. 2. H. pylori infection. Pathology report from EGD reviewed. - on clarithromycin based triple therapy.(stop date 01/17/17) 3. Cryptogenic cirrhosis with portal hypertension. Will monitor. --Would not start any beta blockers secondary to symptomatic bradycardia. 4. Symptomatic Sinus bradycardia with Orthostatic hypotension, likely secondary to nadolol effect. With PT, patient drops BP. -Cards eval appreciated -Avoid any beta blockers or AV loida blocking agents. 5. Acute blood loss anemia on top of anemia of chronic illness. Now stable. -Iron panel noted and will start oral replacement. 6. Dysplastic liver nodule. Hematology evaluation appreciated and will monitor. 7. Type 2 diabetes. Now with MILD hypoglycemia 2/2 overdose of hypoglycemic agents. Discrepancies in order (pt received both Prandin and premeal insulin!). Pt asymptomatic. -DC premeal and continue Prandin, ISS and Lantus. -Will monitor closely and titrate as needed. 8. Mild Encephalopathy, possibly hepatic. Currently at baseline -Will monitor 9.History of Dyslipidemia -Continue fish oil 10. Obesity. Will advise on therapeutic lifestyle changes upon discharge. 11. Thrombocytopenia. Resolved. -Monitor. VT prophylaxis: SCDs PUD prophylaxis: Protonix PLAN:F/u with cardiology recommendation. DISP: Overall with improvement in symptoms. She needs a slow-paced PT and would benefit a DC planning to SNF when cleared from cardiology standpoint. ARU rehab program will be too high for her at this time. Will also check with patient and family preference. Case discussed with DR. Cooper Problems: Subjective 24 Hr Interval Summary Free Text/Dictation With improved HR and less BP variances with ambulation. Patient was receiving both premeal and Prandin and had one time mild asymptomatic hypoglycemia. Exam/Review of Systems Vital Signs Vitals Vital Signs Date Time Temp Pulse Resp B/P Pulse Ox O2 Delivery O2 Flow Rate FiO2 01/05/17 08:11 46 01/05/17 07:40 98.6 17 148/77 95 Intake and Output 01/04/17 01/04/17 01/05/17 15:00 23:00 07:00 Intake Total 700 ml Balance 700 ml Exam General: Obese female, not in any acute distress . HEENT: Normocephalic, Atraumatic, No laceration or hematoma; Eyes: PEERL, Conjunctiva clear, Anicteric sclera Neck: Supple without any lymphadenopathy, nontender, no JVD, no carotid bruits, trachea midline, no thyromegaly Cardiac: S1, S2 auscultated, regular rhythm and rate, no mumurs or gallop Pulmonary: Normal respiratory effort. Chest clear to auscultation bilaterally, no adventitious breath sounds GI: Abdomen obese to inspection. Soft, non tender, non- distended, no masses, no rebound tenderness or guarding. Bowel sounds active on all four quadrants Genitourinary: Deferred Extremities: No cyanosis, clubbing, or edema. Pulses [2+] bilaterally. Full ROM on all four extremities. No focal weakness appreciated. Neurologic: Awake and orientedx4 Skin: Dry, and intact. No ecchymosis, no rashes, or lesions Results Result Diagram: 01/05/17 0809 01/03/17 0630 Results 24 hrs Laboratory Tests Test 01/04/17 11:48 01/04/17 17:45 01/04/17 20:07 01/05/17 07:01 Bedside Glucose 143 132 92 Lab Scanned Report REFERENCE LAB Test 01/05/17 08:09 01/05/17 08:39 01/05/17 09:08 01/05/17 11:33 White Blood Count 3.9 #L Red Blood Count 3.20 L Hemoglobin 9.6 L Hematocrit 29.5 L Mean Corpuscular Volume 92.2 Mean Corpuscular Hemoglobin 30.0 Mean Corpuscular Hemoglobin Concent 32.5 Red Cell Distribution Width 14.9 H Platelet Count 159 Mean Platelet Volume 10.2 Neutrophils % 49.4 Lymphocytes % 41.2 Monocytes % 7.0 Eosinophils % 1.8 Basophils % 0.3 Nucleated Red Blood Cells % 0.0 Neutrophils # (Manual) 1.9 Lymphocytes # 1.6 Monocytes # 0.3 Eosinophils # 0.1 Basophils # 0.0 Nucleated Red Blood Cells # 0.0 Iron Level 32 L Total Iron Binding Capacity 346 Percent Iron Saturation 9 L Ferritin 23.1 Bedside Glucose 73 94 Lab Scanned Report REFERENCE LAB Medications Medications Current Medications Morphine Sulfate (morphine) 2 mg Q4H PRN IV PAIN Last administered on 12/30/16 04:28; Admin Dose 2 MG; Start 12/28/16 at 12:30 Ondansetron HCl (Zofran Inj) 4 mg Q6H PRN IV NAUSEA AND/OR VOMITING; Start at 13:00 Morphine Sulfate (morphine) 2 mg Q4H PRN IV SEVERE PAIN LEVEL 7-10; Start 12/28 at 13:00 Diagnostic Test (Pha) (Accu-Chek) 1 ea 02 XX Last administered on 01/02/17 02: 18; Admin Dose 1 EA; Start 12/29/16 at 02:00 Fish Oil (Fish Oil) 1,000 mg BID PO Last administered on 01/05/17 08:34; Admin Dose 1,000 MG; Start 12/29/16 at 21:00 Miscellaneous Information 1 ea NOTE XX ; Start 12/29/16 at 17:30 Glucose (Glutose) 15 gm Q15M PRN PO DECREASED GLUCOSE; Start 12/29/16 at 17:30 Glucose (Glutose) 22.5 gm Q15M PRN PO DECREASED GLUCOSE; Start 12/29/16 at 17: 30 Dextrose (D50w Syringe) 25 ml Q15M PRN IV DECREASED GLUCOSE; Start 12/29/16 at 17:30 Dextrose (D50w Syringe) 50 ml Q15M PRN IV DECREASED GLUCOSE; Start 12/29/16 at 17:30 Glucagon (Glucagen) 1 mg Q15M PRN IM DECREASED GLUCOSE; Start 12/29/16 at 17:30 Glucose (Glutose) 15 gm Q15M PRN BUCCAL DECREASED GLUCOSE; Start 12/29/16 at 17 :30 Insulin Glargine (Lantus) 16 unit DAILY@08 SC Last administered on 01/04/17 08: 23; Admin Dose 16 UNIT; Start 12/31/16 at 08:00 Pantoprazole (Protonix Tab) 40 mg BID@,18 PO Last administered on 01/05/17 06 :00; Admin Dose 40 MG; Start 12/31/16 at 18:00 Amoxicillin (Amoxicillin) 1,000 mg BID PO Last administered on 01/05/17 08:34; Admin Dose 1,000 MG; Start 01/03/17 at 21:00; Stop 01/17/17 at 20:59 Clarithromycin (Biaxin) 500 mg BID PO Last administered on 01/05/17 08:34; Admin Dose 500 MG; Start 01/03/17 at 21:00; Stop 01/17/17 at 20:59 MARVA MENA NP Jan 05, 2017 11:58
--- NOTE | 2017-01-05 13:22 | PN ---
Date/Time of Note Date/Time of Note DATE: 01/05/17 TIME: 13:20 Assessment/Plan VTE Prophylaxis VTE Prophylaxis Intervention: SCD's Lines/Catheters [facility] Saline Lock Urinary Cath still in place: No Assessment/Plan Assessment/Plan Assessment * Cryptogenic cirrhosis s/p EGD 12/30/16 that showed severe portal hypertensive gastropathy, moderate sized esophageal varices, gastric ulcer . s/p Colonoscopy 12/30/16 that showed diverticulosis of left colon. moderate sized internal hemorrhoids, cecal polyp s/p forcep polypectomy * H pylori infection Plan * Continue present management * case discussed with Dr Restrepo * further orders will depend on clinical course Subjective 24 Hr Interval Summary Free Text/Dictation * Course reviewed with RN * Patient seen and examined * No untoward events overnight Exam/Review of Systems Vital Signs Vitals Vital Signs Date Time Temp Pulse Resp B/P Pulse Ox O2 Delivery O2 Flow Rate FiO2 01/05/17 12:40 98.2 65 18 127/67 95 Intake and Output 01/04/17 01/04/17 01/05/17 15:00 23:00 07:00 Intake Total 700 ml Balance 700 ml Exam Constitutional: alert, well developed Neck: non-tender, supple Respiratory: clear to auscultation, normal air movement Cardiovascular: nl pulses, regular rate and rhythm Gastrointestinal: non-tender, soft Musculoskeletal: nl extremities to inspection, nl gait and stance Extremities: normal pulses 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: nl speech Skin: nl turgor, No rash or lesions Lymph: nl lymph nodes Results Result Diagram: 01/05/17 0809 01/03/17 0630 Results 24 hrs Laboratory Tests Test 01/04/17 17:45 01/04/17 20:07 01/05/17 07:01 01/05/17 08:09 Bedside Glucose 132 92 Lab Scanned Report REFERENCE LAB White Blood Count 3.9 #L Red Blood Count 3.20 L Hemoglobin 9.6 L Hematocrit 29.5 L Mean Corpuscular Volume 92.2 Mean Corpuscular Hemoglobin 30.0 Mean Corpuscular Hemoglobin Concent 32.5 Red Cell Distribution Width 14.9 H Platelet Count 159 Mean Platelet Volume 10.2 Neutrophils % 49.4 Lymphocytes % 41.2 Monocytes % 7.0 Eosinophils % 1.8 Basophils % 0.3 Nucleated Red Blood Cells % 0.0 Neutrophils # (Manual) 1.9 Lymphocytes # 1.6 Monocytes # 0.3 Eosinophils # 0.1 Basophils # 0.0 Nucleated Red Blood Cells # 0.0 Iron Level 32 L Total Iron Binding Capacity 346 Percent Iron Saturation 9 L Ferritin 23.1 Test 01/05/17 08:39 01/05/17 09:08 01/05/17 11:33 Bedside Glucose 73 94 Lab Scanned Report REFERENCE LAB Medications Medications Current Medications Morphine Sulfate (morphine) 2 mg Q4H PRN IV PAIN Last administered on 12/30/16 04:28; Admin Dose 2 MG; Start 12/28/16 at 12:30 Ondansetron HCl (Zofran Inj) 4 mg Q6H PRN IV NAUSEA AND/OR VOMITING; Start at 13:00 Morphine Sulfate (morphine) 2 mg Q4H PRN IV SEVERE PAIN LEVEL 7-10; Start 12/28 at 13:00 Diagnostic Test (Pha) (Accu-Chek) 1 ea 02 XX Last administered on 01/02/17 02: 18; Admin Dose 1 EA; Start 12/29/16 at 02:00 Fish Oil (Fish Oil) 1,000 mg BID PO Last administered on 01/05/17 08:34; Admin Dose 1,000 MG; Start 12/29/16 at 21:00 Miscellaneous Information 1 ea NOTE XX ; Start 12/29/16 at 17:30 Glucose (Glutose) 15 gm Q15M PRN PO DECREASED GLUCOSE; Start 12/29/16 at 17:30 Glucose (Glutose) 22.5 gm Q15M PRN PO DECREASED GLUCOSE; Start 12/29/16 at 17: 30 Dextrose (D50w Syringe) 25 ml Q15M PRN IV DECREASED GLUCOSE; Start 12/29/16 at 17:30 Dextrose (D50w Syringe) 50 ml Q15M PRN IV DECREASED GLUCOSE; Start 12/29/16 at 17:30 Glucagon (Glucagen) 1 mg Q15M PRN IM DECREASED GLUCOSE; Start 12/29/16 at 17:30 Glucose (Glutose) 15 gm Q15M PRN BUCCAL DECREASED GLUCOSE; Start 12/29/16 at 17 :30 Insulin Glargine (Lantus) 16 unit DAILY@08 SC Last administered on 01/04/17 08: 23; Admin Dose 16 UNIT; Start 12/31/16 at 08:00 Pantoprazole (Protonix Tab) 40 mg BID@06,18 PO Last administered on 01/05/17 06 :00; Admin Dose 40 MG; Start 12/31/16 at 18:00 Amoxicillin (Amoxicillin) 1,000 mg BID PO Last administered on 01/05/17 08:34; Admin Dose 1,000 MG; Start 01/03/17 at 21:00; Stop 01/17/17 at 20:59 Clarithromycin (Biaxin) 500 mg BID PO Last administered on 01/05/17 08:34; Admin Dose 500 MG; Start 01/03/17 at 21:00; Stop 01/17/17 at 20:59 Ferrous Sulfate (Ferrous Sulfate (Ec)) 325 mg BID PO ; Start 01/05/17 at 21:00 Docusate Sodium (Colace) 100 mg DAILY PO ; Start 01/06/17 at 09:00 MIA CASTRO NP Jan 05, 2017 13:22
--- NOTE | 2017-01-05 13:36 | PN ---
Date/Time of Note Date/Time of Note DATE: 01/05/17 TIME: 13:32 Assessment/Plan VTE Prophylaxis VTE Prophylaxis Intervention: ambulation Lines/Catheters IV [facility]ter Type (from [facility] Saline Lock Urinary Cath still in place: No Assessment/Plan Chief Complaint/Hosp Course 71 yo woman with cirrhosis and abnormal area of liver on CT. Hepatocellular cancer raised as part of the differential diagnosis. PMH also notable for hematochezia, anemia, diabetes, obesity, dyslipidemia and weakness. Problems: Assessment/Plan Iron studies are low normal. I would continue oral iron as already ordered. There is no clear evidence to support a hepatoma presently but she should be followed in the future since there is an increased risk of that in pts with cryptogenic cirrhosis. We will follow intermittently. Subjective 24 Hr Interval Summary Free Text/Dictation Pt has no new issues. Nurse reports that glucose was low earlier this morning but that the BOOSTER OPERATOR adjusted the insulin program. Exam/Review of Systems Vital Signs Vitals Vital Signs Date Time Temp Pulse Resp B/P Pulse Ox O2 Delivery O2 Flow Rate FiO2 01/05/17 12:40 98.2 65 18 127/67 95 Intake and Output 01/04/17 01/04/17 01/05/17 15:00 23:00 07:00 Intake Total 700 ml Balance 700 ml Exam Constitutional: alert, oriented Head: normocephalic Eyes: nl conjunctiva Neck: supple Respiratory: clear to auscultation Cardiovascular: regular rate and rhythm Gastrointestinal: non-tender, soft Results Result Diagram: 01/05/17 0809 01/03/17 0630 Results 24 hrs Laboratory Tests Test 01/04/17 17:45 01/04/17 20:07 01/05/17 07:01 01/05/17 08:09 Bedside Glucose 132 92 Lab Scanned Report REFERENCE LAB White Blood Count 3.9 #L Red Blood Count 3.20 L Hemoglobin 9.6 L Hematocrit 29.5 L Mean Corpuscular Volume 92.2 Mean Corpuscular Hemoglobin 30.0 Mean Corpuscular Hemoglobin Concent 32.5 Red Cell Distribution Width 14.9 H Platelet Count 159 Mean Platelet Volume 10.2 Neutrophils % 49.4 Lymphocytes % 41.2 Monocytes % 7.0 Eosinophils % 1.8 Basophils % 0.3 Nucleated Red Blood Cells % 0.0 Neutrophils # (Manual) 1.9 Lymphocytes # 1.6 Monocytes # 0.3 Eosinophils # 0.1 Basophils # 0.0 Nucleated Red Blood Cells # 0.0 Iron Level 32 L Total Iron Binding Capacity 346 Percent Iron Saturation 9 L Ferritin 23.1 Test 01/05/17 08:39 01/05/17 09:08 01/05/17 11:33 Bedside Glucose 73 94 Lab Scanned Report REFERENCE LAB Medications Medications Current Medications Morphine Sulfate (morphine) 2 mg Q4H PRN IV PAIN Last administered on 12/30/16 04:28; Admin Dose 2 MG; Start 12/28/16 at 12:30 Ondansetron HCl (Zofran Inj) 4 mg Q6H PRN IV NAUSEA AND/OR VOMITING; Start at 13:00 Morphine Sulfate (morphine) 2 mg Q4H PRN IV SEVERE PAIN LEVEL 7-10; Start 12/28 at 13:00 Diagnostic Test (Pha) (Accu-Chek) 1 ea 02 XX Last administered on 01/02/17 02: 18; Admin Dose 1 EA; Start 12/29/16 at 02:00 Fish Oil (Fish Oil) 1,000 mg BID PO Last administered on 01/05/17 08:34; Admin Dose 1,000 MG; Start 12/29/16 at 21:00 Miscellaneous Information 1 ea NOTE XX ; Start 12/29/16 at 17:30 Glucose (Glutose) 15 gm Q15M PRN PO DECREASED GLUCOSE; Start 12/29/16 at 17:30 Glucose (Glutose) 22.5 gm Q15M PRN PO DECREASED GLUCOSE; Start 12/29/16 at 17: 30 Dextrose (D50w Syringe) 25 ml Q15M PRN IV DECREASED GLUCOSE; Start 12/29/16 at 17:30 Dextrose (D50w Syringe) 50 ml Q15M PRN IV DECREASED GLUCOSE; Start 12/29/16 at 17:30 Glucagon (Glucagen) 1 mg Q15M PRN IM DECREASED GLUCOSE; Start 12/29/16 at 17:30 Glucose (Glutose) 15 gm Q15M PRN BUCCAL DECREASED GLUCOSE; Start 12/29/16 at 17 :30 Insulin Glargine (Lantus) 16 unit DAILY@08 SC Last administered on 01/04/17 08: 23; Admin Dose 16 UNIT; Start 12/31/16 at 08:00 Pantoprazole (Protonix Tab) 40 mg BID@06,18 PO Last administered on 01/05/17 06 :00; Admin Dose 40 MG; Start 12/31/16 at 18:00 Amoxicillin (Amoxicillin) 1,000 mg BID PO Last administered on 01/05/17 08:34; Admin Dose 1,000 MG; Start 01/03/17 at 21:00; Stop 01/17/17 at 20:59 Clarithromycin (Biaxin) 500 mg BID PO Last administered on 01/05/17 08:34; Admin Dose 500 MG; Start 01/03/17 at 21:00; Stop 01/17/17 at 20:59 Ferrous Sulfate (Ferrous Sulfate (Ec)) 325 mg BID PO ; Start 01/05/17 at 21:00 Docusate Sodium (Colace) 100 mg DAILY PO ; Start 01/06/17 at 09:00 KAYLA RALPH MD Jan 05, 2017 13:36
--- NOTE | 2017-01-05 15:24 | CONS ---
Date/Time of Note Date/Time of Note DATE: 01/05/17 TIME: 15:22 Assessment/Plan Assessment/Plan Additional Assessment/Plan Sinus bradycardia with recent beta-david use Orthostatic hypotension Preserved ejection fraction Liver cirrhosis with portal hypertension -Blood pressure trend overall appear stable. No significant arrhythmias seen on telemetry. No need for pacemaker at the current time. DC planning Consultation Date/Type/Reason Admit Date/Time Dec 28, 2016 at 12:00 Initial Consult Date 12/29/16 Type of Consultation: cv Referring Provider: MARVA MENA NP 24 HR Interval Summary Free Text/Dictation Denies shortness of breath, chest pain or palpitations. Dizziness has improved compared to yesterday and occurs with standing Exam/Review of Systems Vital Signs Vitals Vital Signs Date Time Temp Pulse Resp B/P Pulse Ox O2 Delivery O2 Flow Rate FiO2 01/05/17 12:40 98.2 65 18 127/67 95 Intake and Output 01/04/17 01/04/17 01/05/17 15:00 23:00 07:00 Intake Total 700 ml Balance 700 ml Exam No apparent distress, eating lunch Constitutional: alert, obese, oriented Head: normocephalic Respiratory: other (Coarse breath sounds bilaterally, no wheezing) Cardiovascular: other (S1-S2 heard), regular rate and rhythm Gastrointestinal: bowel sounds, non-tender, soft Extremities: edema Results Result Diagram: 01/05/17 0809 01/03/17 0630 Results 24 hrs Laboratory Tests Test 01/04/17 17:45 01/04/17 20:07 01/05/17 07:01 01/05/17 08:09 Bedside Glucose 132 92 Lab Scanned Report REFERENCE LAB White Blood Count 3.9 #L Red Blood Count 3.20 L Hemoglobin 9.6 L Hematocrit 29.5 L Mean Corpuscular Volume 92.2 Mean Corpuscular Hemoglobin 30.0 Mean Corpuscular Hemoglobin Concent 32.5 Red Cell Distribution Width 14.9 H Platelet Count 159 Mean Platelet Volume 10.2 Neutrophils % 49.4 Lymphocytes % 41.2 Monocytes % 7.0 Eosinophils % 1.8 Basophils % 0.3 Nucleated Red Blood Cells % 0.0 Neutrophils # (Manual) 1.9 Lymphocytes # 1.6 Monocytes # 0.3 Eosinophils # 0.1 Basophils # 0.0 Nucleated Red Blood Cells # 0.0 Iron Level 32 L Total Iron Binding Capacity 346 Percent Iron Saturation 9 L Ferritin 23.1 Test 01/05/17 08:39 01/05/17 09:08 01/05/17 11:33 01/05/17 13:28 Bedside Glucose 73 94 100 Lab Scanned Report REFERENCE LAB Medications Medications Current Medications Morphine Sulfate (morphine) 2 mg Q4H PRN IV PAIN Last administered on 12/30/16 04:28; Admin Dose 2 MG; Start 12/28/16 at 12:30 Ondansetron HCl (Zofran Inj) 4 mg Q6H PRN IV NAUSEA AND/OR VOMITING; Start at 13:00 Morphine Sulfate (morphine) 2 mg Q4H PRN IV SEVERE PAIN LEVEL 7-10; Start 12/28 at 13:00 Diagnostic Test (Pha) (Accu-Chek) 1 ea 02 XX Last administered on 01/02/17 02: 18; Admin Dose 1 EA; Start 12/29/16 at 02:00 Fish Oil (Fish Oil) 1,000 mg BID PO Last administered on 01/05/17 08:34; Admin Dose 1,000 MG; Start 12/29/16 at 21:00 Miscellaneous Information 1 ea NOTE XX ; Start 12/29/16 at 17:30 Glucose (Glutose) 15 gm Q15M PRN PO DECREASED GLUCOSE; Start 12/29/16 at 17:30 Glucose (Glutose) 22.5 gm Q15M PRN PO DECREASED GLUCOSE; Start 12/29/16 at 17: 30 Dextrose (D50w Syringe) 25 ml Q15M PRN IV DECREASED GLUCOSE; Start 12/29/16 at 17:30 Dextrose (D50w Syringe) 50 ml Q15M PRN IV DECREASED GLUCOSE; Start 12/29/16 at 17:30 Glucagon (Glucagen) 1 mg Q15M PRN IM DECREASED GLUCOSE; Start 12/29/16 at 17:30 Glucose (Glutose) 15 gm Q15M PRN BUCCAL DECREASED GLUCOSE; Start 12/29/16 at 17 :30 Insulin Glargine (Lantus) 16 unit DAILY@08 SC Last administered on 01/04/17 08: 23; Admin Dose 16 UNIT; Start 12/31/16 at 08:00 Pantoprazole (Protonix Tab) 40 mg BID@06,18 PO Last administered on 01/05/17 06 :00; Admin Dose 40 MG; Start 12/31/16 at 18:00 Amoxicillin (Amoxicillin) 1,000 mg BID PO Last administered on 01/05/17 08:34; Admin Dose 1,000 MG; Start 01/03/17 at 21:00; Stop 01/17/17 at 20:59 Clarithromycin (Biaxin) 500 mg BID PO Last administered on 01/05/17 08:34; Admin Dose 500 MG; Start 01/03/17 at 21:00; Stop 01/17/17 at 20:59 Ferrous Sulfate (Ferrous Sulfate (Ec)) 325 mg BID PO ; Start 01/05/17 at 21:00 Docusate Sodium (Colace) 100 mg DAILY PO ; Start 01/06/17 at 09:00 Ivan Amanda DO Jan 05, 2017 15:24
[2017-01-05] MEDS: FERROUS SULFATE (EC) 325 MG TAB PO SCH (20:20)
[2017-01-06] VITALS (7 sets, daily range): BP systolic 113; BP diastolic 58–64; PULSE 45–54; RESP 17–18
[2017-01-06] MEDS: ACCU-CHEK XX SCH (02:00)
[2017-01-06] MEDS: PANTOPRAZOLE (EC) 40 MG TAB PO SCH (05:11)
[2017-01-06] MEDS: Insulin NOVOLOG SS MILD Algorithm (SS with meals and bedtime) SC SCH ×2 (07:30→12:32)
[2017-01-06 08:04] LABS: BASOPHILS % 0.3 % (0.0-2.0); EOSINOPHILS # 0.1 10^3/ul (0.0-0.5); EOSINOPHILS % 1.9 % (0.0-7.0); HEMOGLOBIN 9.4 g/dl (12.0-16.0); LYMPHOCYTES # 1.3 10^3/ul (0.8-2.9); LYMPHOCYTES % 40.5 % (15.0-51.0); MEAN CORPUSCULAR HEMOGLOBIN 30.6 pg (29.0-33.0); MEAN CORPUSCULAR HGB CONC 33.6 g/dl (32.0-37.0); MEAN CORPUSCULAR VOLUME 91.2 fl (82.0-101.0); MEAN PLATELET VOLUME 10.1 fl (7.4-10.4); MONOCYTE # 0.3 10^3/ul (0.3-0.9); MONOCYTES % 8.2 % (0.0-11.0); NEUTROPHILS % 48.8 % (39.0-77.0); PLATELET COUNT 160 10^3/UL (140-415); RED BLOOD COUNT 3.07 10^6/ul (4.20-5.40); RED CELL DISTRIBUTION WIDTH 14.6 % (11.5-14.5); WHITE BLOOD COUNT 3.2 10^3/ul (4.8-10.8)
[2017-01-06 08:41] LABS: CALCIUM 8.6 mg/dl (8.4-10.2); CREATININE 0.74 mg/dl (0.44-1.00)
[2017-01-06] MEDS: AMOXICILLIN 500 MG CAP PO SCH (08:45)
[2017-01-06] MEDS: CLARITHROMYCIN 500 MG TAB PO SCH (08:45)
[2017-01-06] MEDS: REPAGLINIDE 2 MG TAB PO SCH (08:45)
[2017-01-06] MEDS: FISH OIL 1,000 MG CAP PO SCH (08:45)
[2017-01-06] MEDS: FERROUS SULFATE (EC) 325 MG TAB PO SCH (08:46)
[2017-01-06] MEDS ORDERED: INSULIN GLARGINE [LANtus] 3 ML PEN SC SCH (09:00)
[2017-01-06] MEDS ORDERED: DOCUSATE SODIUM 100 MG CAP PO SCH (09:00)
--- NOTE | 2017-01-06 10:12 | PDOCDIS ---
Discharge Instructions CONDITION Patient Condition: Stable HOME CARE INSTRUCTIONS: Special Diet: carb control FOLLOW UP/APPOINTMENTS Follow-up Plan 1.Follow-up with in 4 weeks Gastroenterology Office Address [address] [place] [id number] Office 2.Needs blood glucose check two times a day before breakfast and dinner MARVA MENA NP Jan 06, 2017 10:12
[2017-01-06] MEDS ORDERED: CLAR500T39 PO (10:15)
[2017-01-06] MEDS ORDERED: METF500T PO (10:15)
[2017-01-06] MEDS ORDERED: PANT40TA4 PO (10:15)
[2017-01-06] MEDS ORDERED: FER325 PO (10:15)
[2017-01-06] MEDS ORDERED: Accu-Chek XX (10:15)
[2017-01-06] MEDS ORDERED: AMO500 PO (10:15)
--- NOTE | 2017-01-06 11:24 | PN ---
Date/Time of Note Date/Time of Note DATE: 01/06/17 TIME: 11:22 Assessment/Plan VTE Prophylaxis VTE Prophylaxis Intervention: ambulation Lines/Catheters IV Catheter Type (from [facility], [place]): Saline Lock Urinary Cath still in place: No Assessment/Plan Chief Complaint/Hosp Course 71 yo woman with cirrhosis and abnormal area of liver on CT. Hepatocellular cancer raised as part of the differential diagnosis. PMH also notable for hematochezia, anemia, diabetes, obesity, dyslipidemia and weakness. Problems: Assessment/Plan No new suggestions. Outpatient f/u of liver advocated. I will sign off case. Please recontact if I can be of help. Subjective 24 Hr Interval Summary Free Text/Dictation Pt sitting at edge of bed and is comfortable Exam/Review of Systems Vital Signs Vitals Vital Signs Date Time Temp Pulse Resp B/P Pulse Ox O2 Delivery O2 Flow Rate FiO2 01/06/17 08:25 54 01/06/17 07:49 97.4 18 113/64 98 Intake and Output 01/05/17 01/05/17 01/06/17 15:00 23:00 07:00 Intake Total 500 ml 350 ml Balance 500 ml 350 ml Exam Constitutional: alert, oriented Head: normocephalic Respiratory: clear to auscultation Cardiovascular: regular rate and rhythm Gastrointestinal: non-tender, soft Results Result Diagram: 01/06/17 0710 01/06/17 0710 Results 24 hrs Laboratory Tests Test 01/05/17 11:33 01/05/17 13:28 01/05/17 16:59 01/05/17 20:22 Bedside Glucose 94 100 76 79 Test 01/06/17 02:00 01/06/17 07:10 01/06/17 08:11 Bedside Glucose 81 77 White Blood Count 3.2 L Red Blood Count 3.07 L Hemoglobin 9.4 L Hematocrit 28.0 L Mean Corpuscular Volume 91.2 Mean Corpuscular Hemoglobin 30.6 Mean Corpuscular Hemoglobin Concent 33.6 Red Cell Distribution Width 14.6 H Platelet Count 160 Mean Platelet Volume 10.1 Neutrophils % 48.8 Lymphocytes % 40.5 Monocytes % 8.2 Eosinophils % 1.9 Basophils % 0.3 Nucleated Red Blood Cells % 0.0 Neutrophils # (Manual) 1.5 L Lymphocytes # 1.3 Monocytes # 0.3 Eosinophils # 0.1 Basophils # 0.0 Nucleated Red Blood Cells # 0.0 Sodium Level 140 Potassium Level 4.0 Chloride Level 109 Carbon Dioxide Level 26 Anion Gap 9 Blood Urea Nitrogen 10 Creatinine 0.74 Glucose Level 63 L Calcium Level 8.6 Medications Medications Current Medications Ondansetron HCl (Zofran Inj) 4 mg Q6H PRN IV NAUSEA AND/OR VOMITING; Start at 13:00 Morphine Sulfate (morphine) 2 mg Q4H PRN IV SEVERE PAIN LEVEL 7-10; Start 12/28 at 13:00 Diagnostic Test (Pha) (Accu-Chek) 1 ea 02 XX Last administered on 01/02/17 02: 18; Admin Dose 1 EA; Start 12/29/16 at 02:00 Fish Oil (Fish Oil) 1,000 mg BID PO Last administered on 01/06/17 08:45; Admin Dose 1,000 MG; Start 12/29/16 at 21:00 Miscellaneous Information 1 ea NOTE XX ; Start 12/29/16 at 17:30 Glucose (Glutose) 15 gm Q15M PRN PO DECREASED GLUCOSE; Start 12/29/16 at 17:30 Glucose (Glutose) 22.5 gm Q15M PRN PO DECREASED GLUCOSE; Start 12/29/16 at 17: 30 Dextrose (D50w Syringe) 25 ml Q15M PRN IV DECREASED GLUCOSE; Start 12/29/16 at 17:30 Dextrose (D50w Syringe) 50 ml Q15M PRN IV DECREASED GLUCOSE; Start 12/29/16 at 17:30 Glucagon (Glucagen) 1 mg Q15M PRN IM DECREASED GLUCOSE; Start 12/29/16 at 17:30 Glucose (Glutose) 15 gm Q15M PRN BUCCAL DECREASED GLUCOSE; Start 12/29/16 at 17 :30 Pantoprazole (Protonix Tab) 40 mg BID@06,18 PO Last administered on 01/06/17 05 :11; Admin Dose 40 MG; Start 12/31/16 at 18:00 Amoxicillin (Amoxicillin) 1,000 mg BID PO Last administered on 01/06/17 08:45; Admin Dose 1,000 MG; Start 01/03/17 at 21:00; Stop 01/17/17 at 20:59 Clarithromycin (Biaxin) 500 mg BID PO Last administered on 01/06/17 08:45; Admin Dose 500 MG; Start 01/03/17 at 21:00; Stop 01/17/17 at 20:59 Ferrous Sulfate (Ferrous Sulfate (Ec)) 325 mg BID PO Last administered on 08:46; Admin Dose 325 MG; Start 01/05/17 at 21:00 Docusate Sodium (Colace) 100 mg DAILY PO Last administered on 01/06/17 08:45; Admin Dose 100 MG; Start 01/06/17 at 09:00 KAYLA RALPH MD Jan 06, 2017 11:24
--- NOTE | 2017-01-06 13:13 | DS ---
Date/Time of Note Date/Time of Note DATE: 01/06/17 TIME: 13:07 Discharge Summary Admission/Discharge Info Admit Date/Time Dec 28, 2016 at 12:00 Discharge Date/Time Discharge Diagnosis 1. Acute GI bleed danyelle 2/2 severe portal hypertensive gastropathy, moderate sized esophageal varices, gastric ulcer. Resolved 2. H. pylori infection. on clarithromycin based triple therapy.(stop date ) 3. Cryptogenic cirrhosis with portal hypertension. Stable. Not a candidate for beta-blockers. 4. Symptomatic Sinus bradycardia with Orthostatic hypotension, likely secondary to nadolol effect. Resolved 5. Acute blood loss anemia on top of anemia of chronic illness. Stable 6. Dysplastic liver nodule. 7. Type 2 diabetes. 8. Mild Encephalopathy, possibly hepatic. 9.History of Dyslipidemia 10. Obesity. 11. Thrombocytopenia. Resolved. Patient Condition: Stable Consults Dr. Pozo, oncology , neurology ,GI Procedures 12/30/2016: Endoscopy. Severe portal hypertensive gastropathy, moderate sized esophageal varices, gastric ulcer. 12/30/2016: Colonoscopy with with diverticulosis of left colon. moderate sized internal hemorrhoids, cecal polyp s/p forcep polypectomy. Hospital Course This is a 71-year-old female who is a poor historian with mild encephalopathy, with the past medical history of dyslipidemia, was brought to the emergency room with the complaints of bloody vomiting and possible seizure-like activities after she fell at home. Patient did not have any chest discomfort or difficulty breathing. She did have any hematochezia or melena. Her initial labs showed hemoglobin 7.6, hematocrit 23.1 and blood glucose 207. CT brain and chest x-ray was negative. MRI also negative. Patient was admitted. Patient was transfused with 2 units of packed red blood cells. She also had mild thrombocytopenia which was resolved without any transfusion. She was also evaluated by neurology service and had EEG consistent with encephalopathy without any epileptiform activity. Patient did not require any treatment. She also had a CT abdomen and pelvis showed cirrhosis with portal hypertension. Neuro status remained mildly encephalopathy but was awake and oriented most of the time. She was also noted with a liver nodule and was evaluated by hematology/oncology service. MRI of the liver with contrast was negative for any malignancies showed a dysplastic nodule she did not require any treatment. Outpatient follow-up liver imaging was recommended. She was also noted with a hemoglobin A1c 9 with persistent hyperglycemia diagnosis of adult onset diabetes mellitus. She had diabetic education. Patient was started on Lantus and pre-meal prandin. Lipid panel remained stable and she was continued on fish oil. Patient was not a candidate for statin due to elevated liver enzymes. On 12/30/2016, patient had undergone endoscopy and colonoscopy. Endoscopy revealed severe portal hypertensive gastropathy, moderate sized esophageal varices, gastric ulcer. Colonoscopy with with diverticulosis of left colon. moderate sized internal hemorrhoids, cecal polyp s/p forcep polypectomy. Patient was to continue Protonix. She did not have any further GI bleed. H&H remained stable. Patient was started on a diet and was able to tolerate it. Pathology was positive for H. pylori infection and she was started on clarithromycin-based triple therapy. During the course of hospitalization, patient was treated with beta-blockers for cryptogenic cirrhosis with portal hypertension. However, patient developed bradycardia with symptomatic orthostatic hypotension secondary to medication effect. This was a major problem in physical therapy activities in house. Patient was evaluated by cardiology. Recommendation was to avoid any beta blockers or AV loida agents at this time. Bradycardia resolved. There was no further orthostatic hypotension. She was evaluated by acute rehabilitation unit. However, due to orthostatic hypotension, she was recommended to have a slow- paced physical therapy at an extended care facility. Acute rehab program was too high for the patient at this time. Patient's blood sugar remained in the 70s. In coordination with our diabetic team, we recommended metformin based diabetic management as outpatient with close primary care follow-up. She was accepted to long-term facility on 01/06/2017. Patient in agreement for transfer. She was provided with a glucometer. At [facility], instructed to continue pre-meal insulin sliding scale along with metformin with titration as indicated. Disposition: Patient to be discharged to long-term facility for continuation of short-term physical therapy. Patient and family verbalized discharge instructions. Approximately 60 minutes was spent in coordinating the discharge on this patient Patient was seen in collaboration with . Home Meds Active Scripts Metformin Hcl (Glucophage) 500 Mg Tablet, 500 MG PO BID WITH MEALS, #60 TAB Prov:MARVA MENA NP 01/06/17 Pantoprazole* (Pantoprazole*) 40 Mg Tablet.dr 40 MG PO BID@, #75 LAST DOSE 02/11/17 Prov:SILVINA MENAA V. CORN GRINDER 01/06/17 [Accu-Chek] 1 EA EA No Conflict Check, 1 EA XX BID Prov:MENASILVINAA V. CORN GRINDER 01/06/17 Ferrous Sulfate* (Ferrous Sulfate*) 325 Mg Tabec, 325 MG PO BID, #60 TAB Prov:MENATYEMARVA V. CORN GRINDER 01/06/17 Clarithromycin* (Biaxin*) 500 Mg Tablet, 500 MG PO BID for 11 Days, TAB stop date 01/17/17 Prov:MENA,MARVA V. CORN GRINDER 01/06/17 Amoxicillin* (Amoxicillin*) 500 Mg Cap, 1000 MG PO BID for 11 Days, CAP stop date 01/17/17 Prov:MENASILVINAA V. CORN GRINDER 01/06/17 Follow-up Plan HOME CARE INSTRUCTIONS: Special Diet: carb control FOLLOW UP/APPOINTMENTS Follow-up Plan 1.Follow-up with in 4 weeks Gastroenterology Office Address [address] [place], [place] [id number] Office 2.Needs blood glucose check two times a day before breakfast and dinner Primary Care Provider [facility] Pending Labs Laboratory Tests Test 01/05/17 13:28 01/05/17 16:59 01/05/17 20:22 01/06/17 02:00 Bedside Glucose 100mg/dL (70-220) 76mg/dL (70-220) 79mg/dL (70-220) 81mg/dL (70-220) Test 01/06/17 07:10 01/06/17 08:11 01/06/17 12:00 White Blood Count 3.210^3/ul (4.8-10.8) Red Blood Count 3.0710^6/ul (4.20-5.40) Hemoglobin 9.4g/dl (12.0-16.0) Hematocrit 28.0% (37.0-47.0) Mean Corpuscular Volume 91.2fl (82.0-101.0) Mean Corpuscular Hemoglobin 30.6pg (29.0-33.0) Mean Corpuscular Hemoglobin Concent 33.6g/dl (32.0-37.0) Red Cell Distribution Width 14.6% (11.5-14.5) Platelet Count 78169^3/UL (140-415) Mean Platelet Volume 10.1fl (7.4-10.4) Neutrophils % 48.8% (39.0-77.0) Lymphocytes % 40.5% (15.0-51.0) Monocytes % 8.2% (0.0-11.0) Eosinophils % 1.9% (0.0-7.0) Basophils % 0.3% (0.0-2.0) Nucleated Red Blood Cells % 0.0/100WBC (0.0-0.0) Neutrophils # (Manual) 1.510^3/ul (1.7-7.5) Lymphocytes # 1.310^3/ul (0.8-2.9) Monocytes # 0.310^3/ul (0.3-0.9) Eosinophils # 0.110^3/ul (0.0-0.5) Basophils # 0.010^3/ul (0.0-0.1) Nucleated Red Blood Cells # 0.010^3/ul (0.0-0.0) Sodium Level 140mmol/L (135-144) Potassium Level 4.0mmol/L (3.5-5.1) Chloride Level 109mmol/L (97-110) Carbon Dioxide Level 26mmol/L (21-31) Anion Gap 9 (8-16) Blood Urea Nitrogen 10mg/dl (7-20) Creatinine 0.74mg/dl (0.44-1.00) Glucose Level 63mg/dl (70-220) Calcium Level 8.6mg/dl (8.4-10.2) Bedside Glucose 77mg/dL (70-220) 270mg/dL (70-220) MARVA MENA NP Jan 06, 2017 13:13
[2017-01-06] MEDS ORDERED: metFORMIN 500 MG TAB PO SCH (18:05)
[2017-01-07] MEDS ORDERED: INSULIN GLARGINE [LANtus] 3 ML PEN SC SCH ×2 (08:00)
== END 2017-01-06 13:16 | DRG 377 ==
LOC: E/R 05:44 → EDBD 05:44 → MS4 12:00
PROVIDERS: ADMIT Hospitalist; ATTEND Hospitalist
PROC: 30233N1 Transfusion of Nonautologous Red Blood Cells into Peripheral Vein, Percutaneous Approach (ICD-10-PCS; 2016-12-28)
PROC: 30233N1 Transfusion of Nonautologous Red Blood Cells into Peripheral Vein, Percutaneous Approach (ICD-10-PCS; 2016-12-30)
PROC: 0DB78ZX Excision of Stomach, Pylorus, Via Natural or Artificial Opening Endoscopic, Diagnostic (ICD-10-PCS; principal; 2016-12-30 17:30)
PROC: 0DBH8ZX Excision of Cecum, Via Natural or Artificial Opening Endoscopic, Diagnostic (ICD-10-PCS; 2016-12-30 17:30)
DX: K25.4 Chronic or unspecified gastric ulcer with hemorrhage (principal); K72.00 Acute and subacute hepatic failure without coma; K76.6 Portal hypertension; I50.32 Chronic diastolic (congestive) heart failure; D69.59 Other secondary thrombocytopenia; R16.0 Hepatomegaly, not elsewhere classified; D62 Acute posthemorrhagic anemia; B96.81 Helicobacter pylori [H. pylori] as the cause of diseases classified elsewhere; E11.9 Type 2 diabetes mellitus without complications; K74.69 Other cirrhosis of liver; R00.1 Bradycardia, unspecified; D12.0 Benign neoplasm of cecum; K31.89 Other diseases of stomach and duodenum; I95.1 Orthostatic hypotension; K64.8 Other hemorrhoids; E78.5 Hyperlipidemia, unspecified; D63.8 Anemia in other chronic diseases classified elsewhere; E86.0 Dehydration; T44.7X5A Adverse effect of beta-adrenoreceptor antagonists, initial encounter; Y92.019 Unspecified place in single-family (private) house as the place of occurrence of the external cause; Z79.4 Long term (current) use of insulin
CPT/HCPCS: 36415; 36430; 70450; 70551; 71010; 71260; 74177; 74183; 80048; 80053; 80061; 80306; 80307; 81001; 82105; 82140; 82378; 82728; 82962; 82985; 83036; 83540; 83615; 83735; 84100; 84436; 84443; 84479; 84484; 85014; 85018; 85025; 85610; 85730; 86301; 86304; 86704; 86709; 86803; 86850; 86900; 86901; 86920; 87340; 88305; 88312; 93005; 93306; 95819; 96372; 96374; 96375; 97110; 97116; 97162; 97530; C9113; J0360; J1815; J2270; J2405; J7030; J7040; P9016; Q9967

== ENCOUNTER 2017-03-31 17:40 | Inpatient (IN) | payer MEDICARE, OTHER ==
[~2017-03-31] VITALS: Ht 160 cm; Wt 81.8 kg
[~2017-03-31 17:40] MED LIST: AMOX500C2 PO; Accu-Chek XX; CLAR500T39 PO; FER325 PO; METF500T PO; PANT40TA4 PO
[2017-03-31 17:42] VITALS: Ht 160 cm; Wt 81.8 kg
[2017-03-31] MEDS ORDERED: SOD CHLORIDE 0.9% 1,000 ML IV STA (19:09)
[2017-03-31] MEDS ORDERED: PANTOPRAZOLE 40 MG INJ IV STA (19:09)
[2017-03-31] MEDS ORDERED: OCTREOTIDE 50 MCG in SOD CHLORIDE 0.9% 25 ML IVPB STA (19:09)
[2017-03-31] MEDS ORDERED: OCTREOTIDE 500 MCG in SOD CHLORIDE 0.9% 49 ML IV STA (19:09)
--- NOTE | 2017-03-31 19:12 | ERD ---
ER Documentation Chief Complaint Chief Complaint vomiting blood today; hx of stomach ulcer HPI 71-year-old woman with a history of cirrhosis and previous gastrointestinal bleeding presents with melena 3-4 days and hematemesis 1 today. She has been feeling weak. She denies fevers or chills, no chest pain or shortness of breath , no loss of consciousness, no headache or blurry vision. She recently underwent an esophagogastroduodenoscopy and colonoscopy revealing hypertensive gastritis and internal hemorrhoids respectively. ROS All systems reviewed and are negative except as per history of present illness. Medications Home Meds Active Scripts Ferrous Sulfate* (Ferrous Sulfate*) 325 Mg Tabec, 325 MG PO BID, #60 TAB Prov:MARVA MENA V. SWITCHBOARD WIRER 01/06/17 Reported Medications Docusate Sodium* (Doc-Q-Lace*) 100 Mg Capsule, 100 MG PO BID Y for CONSTIPATION , CAP 03/31/17 Ascorbic Acid (Vitamin C) 500 Mg Tab, 500 MG PO DAILY, TAB 03/31/17 [place]-3S/Dha/Epa/Fish Oil (Fish Oil [place]-3 Softgel) 1 Each Capsule.dr, 1 EACH PO BID 03/31/17 Acetaminophen (Mapap) 500 Mg Capsule, 500 MG PO Q6H Y for PAIN, CAP TAKE 1 OR 2 CAP-Q6H 03/31/17 Omeprazole* (Omeprazole*) 40 Mg Capsule.dr, 40 MG PO DAILY, #30 CAP 03/31/17 Lisinopril* (Lisinopril*) 20 Mg Tablet, 20 MG PO DAILY, #30 TAB 03/31/17 Donepezil* (Donepezil*) 5 Mg Tablet, 5 MG PO DAILY, #30 TAB 03/31/17 Metformin Hcl* (Metformin Hcl*) 500 Mg Tablet, 1000 MG PO WITH BREAKFAST DINNE, #60 TAB 03/31/17 Discontinued Scripts Metformin Hcl (Glucophage) 500 Mg Tablet, 500 MG PO BID WITH MEALS, #60 TAB Prov:MARVA MENA V. SWITCHBOARD WIRER 01/06/17 Pantoprazole* (Pantoprazole*) 40 Mg Tablet., 40 MG PO BID@18, #75 LAST DOSE 02/11/17 Prov:MARVA MENA V. SWITCHBOARD WIRER 01/06/17 [Accu-Chek] 1 EA EA No Conflict Check, 1 EA XX BID Prov:TYE MENAEFRAIN Ly SWITCHBOARD WIRER 01/06/17 Clarithromycin* (Biaxin*) 500 Mg Tablet, 500 MG PO BID for 11 Days, TAB stop date 01/17/17 Prov:TYE MENADYA V. SWITCHBOARD WIRER 01/06/17 Amoxicillin* (Amoxicillin*) 500 Mg Cap, 1000 MG PO BID for 11 Days, CAP stop date 01/17/17 Prov:MENA,MARVA V. SWITCHBOARD WIRER 01/06/17 Allergies Allergies: Coded Allergies: No Known Allergy (Unverified , 03/31/17) PMhx/Soc Cirrhosis, GI bleed, hypertension, diabetes mellitus, gastric ulcers History of Surgery: No Anesthesia Reaction: No Hx 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 Disorder: No Hx Respiratory Disorders: No Hx Cardiac Disorders: Yes (HTN, Hyperlipidemia) Hx Psychiatric Problems: No Hx Miscellaneous Medical Probl: No Hx Alcohol Use: No Hx Substance Use: No Hx Tobacco Use: No FmHx Family History: No diabetes Physical Exam Vitals Vital Signs Date Time Temp Pulse Resp B/P Pulse Ox O2 Delivery O2 Flow Rate FiO2 03/31/17 21:20 98.3 62 14 98/53 97 Room Air 03/31/17 19:38 Nasal Cannula 2 03/31/17 19:31 66 13 100/61 99 Room Air 03/31/17 17:42 97.8 85 18 125/69 99 Physical Exam GENERAL: Well-developed, well-nourished, dehydrated, afebrile HEENT: Dry mucous membranes, pale conjunctiva, no cervical spine tenderness or step-off deformities, no goiter, no jaundice or icterus, extraocular movements intact without pain. No submandibular induration, and no pharyngeal erythema NEURO: Alert and oriented 3, cranial nerves II through XII intact bilaterally, pupils equal round reactive to light, no focal deficits or facial asymmetry, sensation intact distally Strength 5/5 in upper and lower extremities bilaterally CARDIAC: Regular rate and rhythm, no murmurs rubs or gallops LUNGS: Clear bilaterally no wheezing crackles or stridor ABDOMEN: Soft nontender, no guarding, no rigidity, no rebound, no psoas sign no obturator sign. Normoactive bowel sounds SKIN: Warm and dry to touch, no abrasions, contusions, or hematomas, no lacerations, no ecchymosis, no target lesions, and without ulcers EXTREMITIES: No clubbing cyanosis or edema, calves are bilaterally symmetrical, no Homans sign, no popliteal cord sign. Distal pulses equal and bilateral PSYCH: Normal affect without agitation or irritability Result Diagram: 03/31/17191403/31/171914 Results 24 hrs Laboratory Tests Test 03/31/17 18:48 03/31/17 19:15 Bedside Glucose 171mg/dL White Blood Count 5.810^3/ul Red Blood Count 3.4210^6/ul Hemoglobin 10.6g/dl Hematocrit 30.9% Mean Corpuscular Volume 90.4fl Mean Corpuscular Hemoglobin 31.0pg Mean Corpuscular Hemoglobin Concent 34.3g/dl Red Cell Distribution Width 14.1% Platelet Count 89348^3/UL Mean Platelet Volume 10.9fl Neutrophils % 73.4% Lymphocytes % 21.1% Monocytes % 4.5% Eosinophils % 0.2% Basophils % 0.5% Nucleated Red Blood Cells % 0.0/100WBC Neutrophils # 4.210^3/ul Lymphocytes # 1.210^3/ul Monocytes # 0.310^3/ul Eosinophils # 0.010^3/ul Basophils # 0.010^3/ul Nucleated Red Blood Cells # 0.010^3/ul Prothrombin Time 14.8Sec Prothrombin Time Ratio 1.2 INR International Normalized Ratio 1.14 Activated Partial Thromboplast Time 28.4Sec Sodium Level 132mmol/L Potassium Level 5.5mmol/L Chloride Level 98mmol/L Carbon Dioxide Level 20mmol/L Anion Gap 20 Blood Urea Nitrogen 26mg/dl Creatinine 0.72mg/dl Glucose Level 164mg/dl Calcium Level 9.1mg/dl Total Bilirubin 0.6mg/dl Direct Bilirubin 0.00mg/dl Indirect Bilirubin 0.6mg/dl Aspartate Amino Transf (AST/SGOT) 88IU/L Alanine Aminotransferase (ALT/SGPT) 68IU/L Alkaline Phosphatase 183IU/L Ammonia 23umol/l Troponin I < 0.012ng/ml Total Protein 8.1g/dl Albumin 4.1g/dl Globulin 4.00g/dl Albumin/Globulin Ratio 1.02 Lipase 346U/L Current Medications Medications (Trade) Dose Ordered Sig/Yamilka Route PRN Reason Start Time Stop Time Status Last Admin Dose Admin Sodium Chloride (NS) 1,000 ml @ 1,000 mls/hr Q1H STAT IV 03/31/17 19:09 03/31/17 20:08 DC 03/31/17 19:59 Pantoprazole 40 mg 40 mg ONCE STAT IV 03/31/17 19:09 03/31/17 19:11 DC 03/31/17 19:58 Octreotide Acetate 50 mcg/ Sodium Chloride 26 ml @ 100 mls/hr Q16M STAT IVPB 03/31/17 19:09 03/31/17 19:24 DC 03/31/17 20:38 Octreotide Acetate/Sodium Chloride (Sandostatin/NS) 50 ml @ 5 mls/hr ONCE STAT IV 03/31/17 19:09 04/01/17 05:08 03/31/17 20:46 Dextrose (D50w Syringe) 25 ml ONCE ONCE IV 03/31/17 21:00 03/31/17 21:04 DC Insulin Human Regular (Humulin R) 8 unit ONCE ONCE IV 03/31/17 21:00 03/31/17 21:04 DC Procedures/MDM IV line was established patient was placed on quality assurance monitor final rhythm strip revealed a sinus rhythm at about 80 bpm with upright P and T waves. Patient was afebrile EKG performed, read by me: 68 bpm, normal sinus rhythm, normal axis, no acute ST segment changes, narrow QRS complex, with good R-wave progression in precordial leads. Chest X-ray 1V Interpreted by me: Soft Tissue: No acute abnormalities Bones: No acute abnormalities Mediastinum/Cardiac Silhouette/Lungs: No acute abnormalities CBC was unremarkable, electrolytes revealed hyperkalemia 5.5 and dehydration with a BUN/creatinine of 26/0.7, liver function tests were unremarkable, troponin was negative, ammonia level was low CT scan of the abdomen and pelvis was performed revealing IMPRESSION: 1. Redemonstrated cirrhotic liver with varicosities. Unchanged mass in the right lobe liver. 2. No ascites. 3. Unremarkable gallbladder without wall thickening or cholelithiasis. No evidence for biliary obstruction. 4. Scattered sigmoid colon diverticuli without evidence for diverticulitis. 5. Status post hysterectomy. Ovaries not identified. 6. Otherwise no change. I administered 1 L normal saline intravenously, Protonix 40 mg IV 1, and octreotide 50 mcg IV bolus 1 followed by an octreotide drip given her recent melena and hematemesis. Patient also received dextrose 25 g IV and regular insulin 8 units IV 1 for acute hyperkalemia. Critical Care: Time: 55 minutes, this was time separate from other billable procedures. Treatments/Evaluations: Close monitoring and treatment of unstable vital signs, cardiorespiratory, and neurologic status, while maintaining tight balance of fluid, respiratory, and cardiac interventions. Patient will be admitted to telemetry setting for continued medical management and gastroenterology consultation. I spoke to her geothermal operations manager Dr. Restrepo regarding her symptoms, ED management, and labs. Departure Diagnosis: Primary Impression: Cirrhosis of liver Hepatic cirrhosis type: unspecified hepatic cirrhosis Ascites presence: without ascites Qualified Code: K74.60 - Cirrhosis of liver without ascites, unspecified hepatic cirrhosis type Additional Impressions: Gastric ulcer with hemorrhage Gastric ulcer chronicity: acute Qualified Code: K25.0 - Acute gastric ulcer with hemorrhage Bleeding internal hemorrhoids Portal hypertensive gastropathy Acute hyperkalemia Dehydration Condition: DAMIEN Quiroga MD Mar 31, 2017 19:12
[2017-03-31] MEDS ORDERED: METF500T4 PO (19:24)
[2017-03-31] MEDS ORDERED: DONE5TAB7 PO (19:24)
[2017-03-31] MEDS ORDERED: OMEP40CA6 PO (19:25)
[2017-03-31] MEDS ORDERED: LISI20TA11 PO (19:25)
[2017-03-31] MEDS ORDERED: ACET500C3 PO (19:27)
[2017-03-31] MEDS ORDERED: OMEG-155 PO (19:28)
[2017-03-31] MEDS ORDERED: DOCU100C26 PO (19:29)
[2017-03-31] MEDS ORDERED: ASC500 PO (19:29)
[2017-03-31 19:48] LABS: BASOPHILS % 0.5 % (0.0-2.0); EOSINOPHILS % 0.2 % (0.0-7.0); HEMATOCRIT 30.9 % (37.0-47.0); HEMOGLOBIN 10.6 g/dl (12.0-16.0); LYMPHOCYTES # 1.2 10^3/ul (0.8-2.9); LYMPHOCYTES % 21.1 % (15.0-51.0); MEAN CORPUSCULAR HGB CONC 34.3 g/dl (32.0-37.0); MEAN CORPUSCULAR VOLUME 90.4 fl (82.0-101.0); MEAN PLATELET VOLUME 10.9 fl (7.4-10.4); MONOCYTE # 0.3 10^3/ul (0.3-0.9); MONOCYTES % 4.5 % (0.0-11.0); NEUTROPHIL # 4.2 10^3/ul (1.6-7.5); NEUTROPHILS % 73.4 % (39.0-77.0); PLATELET COUNT 144 10^3/UL (140-415); RED BLOOD COUNT 3.42 10^6/ul (4.20-5.40); RED CELL DISTRIBUTION WIDTH 14.1 % (11.5-14.5); WHITE BLOOD COUNT 5.8 10^3/ul (4.8-10.8)
[2017-03-31 20:12] LABS: ALANINE AMINOTRANSFERASE 68 IU/L (13-69); ALBUMIN 4.1 g/dl (3.3-4.9); ALBUMIN/GLOBULIN RATIO 1.02; ALKALINE PHOSPHATASE 183 IU/L (42-121); ANION GAP 20 (8-16); ASPARTATE AMINO TRANSFERASE 88 IU/L (15-46); BILIRUBIN,INDIRECT 0.6 mg/dl (0-1.1); BILIRUBIN,TOTAL 0.6 mg/dl (0.2-1.3); BLOOD UREA NITROGEN 26 mg/dl (7-20); CALCIUM 9.1 mg/dl (8.4-10.2); CARBON DIOXIDE 20 mmol/L (21-31); CHLORIDE 98 mmol/L (97-110); CREATININE 0.72 mg/dl (0.44-1.00); GLUCOSE 164 mg/dl (70-220); POTASSIUM 5.5 mmol/L (3.5-5.1); SODIUM 132 mmol/L (135-144); TOTAL PROTEIN 8.1 g/dl (6.1-8.1)
[2017-03-31 20:23] LABS: TROPONIN-I < 0.012 ng/ml (0.00-0.12)
--- NOTE | 2017-03-31 20:23 | RADRPT ---
PROCEDURE: XR Chest. CLINICAL INDICATION: Upper GI bleed TECHNIQUE: Single AP portable chest. COMPARISON: 12/28/2016 <Chest x-ray FINDINGS: The cardiomediastinal silhouette is within normal limits of size. The lungs are clear without pleur al effusion or focal consolidation. No pneumothorax. The osseous structures and soft tissues are unr emarkable. IMPRESSION: 1. No evidence for active cardiopulmonary disease. RPTAT:AAJJ Physician Lina Date Time Electronically viewed and signed by Physician Lina on 03/31/2017 20:22 FELIX/
[2017-03-31 20:29] LABS: PARTIAL THROMBOPLASTIN TIME 28.4 Sec (25.0-35.0)
[2017-03-31] MEDS ORDERED: DEXTROSE 50% 50 ML SYRINGE IV ONE (21:00)
[2017-03-31] MEDS ORDERED: INSULIN REGULAR, HUMAN 100 UNIT/1 ML 3ML VIAL IV ONE (21:00)
--- NOTE | 2017-03-31 21:08 | RADRPT ---
PROCEDURE: CT Abdomen and Pelvis without contrast. CLINICAL INDICATION: Pain. GI bleed. TECHNIQUE: CT scan of the abdomen and pelvis was performed on a multidetector slice CT scanner. No intravenous contrast material was utilized. Sagittal and coronal reformatted images were obtained fr om the axial source images. Images were reviewed on a high-resolution PACS workstation. Exam CTDlvol = 16 mGy and DLP = 927 Gy-cm. One of the following 3 dose reduction techniques were used: Automated exposure control; adjustment of the mA and/or kV according to patient size; or use of iterative rec onstruction technique. DICOM images are available. COMPARISON: MRI abdomen 12/31/2016, CT 12/28/2016. FINDINGS: There is no obstruction or ileus. The appendix is visualized. There is no evidence for appendiciti s.. There are scattered sigmoid colon diverticuli without evidence for diverticulitis. There is no f ree fluid. The liver is overall normal in size with extensive surface nodularity, unchanged. There is redemonst rated complex 3.2 x 3.4 cm solid mass in the anterior segment of the right lobe of liver. These reca nnulated umbilical vein. A. The gallbladder is normal in appearance. There is no definite biliary du ctal dilation. Pancreas is normal in appearance. The spleen is unremarkable.. There are no adrenal m asses. The aorta is normal caliber. Atherosclerotic vascular calcifications are present. Kidneys are normal in appearance without hydronephrosis, mass or calculus.. Ureters are of normal ca liber and without evidence for an obstructing calculus. The urinary bladder is normal in appearance .. Neither the uterus nor ovaries are identified.. Limited evaluation of the lung bases is unremarkable. There are degenerative changes of the lumbar spine. There are scattered Schmorl's nodes throughout t he lower thoracic upper lumbar spine vertebral bodies, largest in the superior aspect of L3. IMPRESSION: 1. Redemonstrated cirrhotic liver with varicosities. Unchanged mass in the right lobe liver. 2. No ascites. 3. Unremarkable gallbladder without wall thickening or cholelithiasis. No evidence for biliary obst ruction. 4. Scattered sigmoid colon diverticuli without evidence for diverticulitis. 5. Status post hysterectomy. Ovaries not identified. 6. Otherwise no change. RPTAT: HMVK .vIan Charles MD, MD Date Time Electronically viewed and signed by .Ivan Charles MD, MD on 03/31/2017 21:08 .K/
[2017-03-31 21:20] VITALS: TEMP 98.3
[2017-03-31 21:23] LABS: INR 1.14; PROTIME 14.8 Sec (11.9-14.9); PT RATIO 1.2
[2017-03-31 22:14] VITALS: PULSE 78
[2017-03-31 22:19] VITALS: BP 115/68; RESP 19
[2017-03-31] MEDS ORDERED: ACETAMINOPHEN 325 MG TAB PO PRN (23:30)
[2017-03-31] MEDS ORDERED: NACL 0.9% 3 ML SYG IV SCH (23:30)
[2017-03-31] MEDS ORDERED: ONDANSETRON 4 MG INJ IV PRN (23:30)
[2017-03-31] MEDS: PANTOPRAZOLE 40 MG INJ IV SCH (23:49)
[2017-03-31] MEDS: SOD CHLORIDE 0.9% 1,000 ML IV SCH (23:49)
[2017-04-01] VITALS (18 sets, daily range): BP systolic 100–137; BP diastolic 56–79; PULSE 53–71; RESP 14–37
[2017-04-01] MEDS: PANTOPRAZOLE 40 MG INJ IV SCH ×2 (05:52→17:31)
[2017-04-01] MEDS: OCTREOTIDE 1 MG in SOD CHLORIDE 0.9% 95 ML IV SCH (05:52)
--- NOTE | 2017-04-01 07:35 | HP ---
Date/Time of Note Date/Time of Note DATE: 04/01/17 TIME: 07:26 Assessment/Plan Lines/Catheters IV Catheter Type (from [facility]): Peripheral IV Assessment/Plan Chief Complaint/Hosp Course This is a 71-year-old female being admitted to telemetry floor for: #1 GI bleed: Patient has hematemesis and hematochezia. At the current time we will keep the patient strict n.p.o., IV fluids, Protonix and octreotide drip. H &H every 6 hours. Patient has a previous history of ulcers and varices. GI has been consulted #2 Cryptogenic cirrhosis portal hypertension: Recently diagnosed with cryptogenic cirrhosis. Check alpha-fetoprotein level. Patient recently set up with primary care physician and she is going to be seeing a liver specialist. Patient also needs a liver biopsy and will need to follow-up as an outpatient with hematology/hepatology to get this we will see if we can assist her with getting an appointment. #3 gastric ulcer: Patient with history of gastric ulcer seen on endoscopy: This could be the possible site of bleeding. At the current time treat as per #1. GI is on consult. #4 dysplastic liver nodule: Again patient is to follow-up with a liver specialist as an outpatient. Patient will need liver biopsy. Please see #2. #5 diabetes mellitus: Patient most recent A1c was 9 in November. Repeat A1c. The patient on sliding scale hold home medications. #6 dyslipidemia: Continue statin once patient is taking p.o. #7 anemia: She needs every 6 hours. Treatment as per #1 #8 DVT GI prophylaxis: SCDs, Protonix Further treatment strategy will be implemented as per the clinical course Problems: HPI/ROS Admit Date/Time Admit Date/Time Mar 31, 2017 at 22:09 Hx of Present Illness 71-year-old woman with a history of cirrhosis and previous gastrointestinal bleeding presents with melena 3-4 days and hematemesis 1 today. She has been feeling weak. She denies fevers or chills, no chest pain or shortness of breath , no loss of consciousness, no headache or blurry vision. Recently went in under endoscopy and colonoscopy with results as follows: Endoscopy. Severe portal hypertensive gastropathy, moderate sized esophageal varices, gastric ulcer. Colonoscopy with with diverticulosis of left colon. moderate sized internal hemorrhoids, cecal polyp s/p forcep polypectomy. Patient also states that she was seen by hematology during her last visit and she was told that she needed to have biopsy done. She just recently established care with her primary care doctor. She has yet to see a specialist for this cirrhosis however the primary care doctor is helping her with that. She would though like to set up for the liver biopsy. Allergies: NKDA Medications: See ELLIE ABBOTT Const: As per HPI Eyes : No pain discharge or redness or change in visual acuity ENT: No pain, sore throat, congestion, congestion, dysphagia or discharge Respiratory: No shortness of breath, cough, sputum, wheezing, or pleuritic pain Cardiovascular: No chest pain, palpitation, PND, or edema GI : As per HPI Genitourinary: No dysuria, hematuria, flank pain , discharge or CVA tenderness Musculoskeletal: No joint pain, back pain, neck pain, restricted range of motion in neck or joints Skin: No rash, bruising or hives Neuro: No headache, dizziness, syncope, seizure, focal weakness Endocrine: No polyuria, polydipsia, temperature intolerance Psych: No hallucination, depression, anxiety or suicidal ideation PMH/Family/Social Past Medical History Cryptogenic cirrhosis portal hypertension, gastric ulcer, recent H. pylori infection, dysplastic liver nodule, type 2 diabetes, dyslipidemia, anemia, obesity Past Surgical History 12/30/2016: Endoscopy. Severe portal hypertensive gastropathy, moderate sized esophageal varices, gastric ulcer. 12/30/2016: Colonoscopy with with diverticulosis of left colon. moderate sized internal hemorrhoids, cecal polyp s/p forcep polypectomy Family History Significant Family History: no pertinent family hx Social History Smoking Status: Never smoker Exam/Review of Systems Vital Signs Vitals Vital Signs Date Time Temp Pulse Resp B/P Pulse Ox O2 Delivery O2 Flow Rate FiO2 04/01/17 04:27 59 04/01/17 04:22 98.0 20 109/56 97 03/31/17 21:20 Room Air 03/31/17 19:38 2 Intake and Output 03/31/17 03/31/17 04/01/17 15:00 23:00 07:00 Intake Total 455 ml Balance 455 ml Exam Exam General: Patient is well-developed well-nourished The patient is alert oriented -3 lying comfortably in bed. HEENT: Atraumatic, normocephalic. The pupils are equal, round and reactive. Extraocular motor are intact Neck: Supple with full range of motion. No rigidity or meningismus Chest: Nontender Lungs: Clear to auscultation bilaterally no crackles rales or wheezing Heart: Normal S1-S2, Regular rhythm and rate. No murmur, S3, or S4 Abdomen: Soft , nontender, nondistended , bowel sounds are present. No guarding no rebound tenderness , No masses or organomegaly. No costovertebral temporal angle mass Extremities: Normal to inspection, no edema no cyanosis Neurologic: Normal mental status, speech normal, cranial nerves II through XII are intact, motor and sensory are intact, no focal weakness Additional Comments EKG 68 bpm, normal sinus rhythm, normal axis, no acute ST segment changes, narrow QRS complex, with good R-wave progression in precordial leads. As per ED physician documentation Labs Result Diagram: 03/31/17191403/31/171914 Medications Medications Current Medications Sodium Chloride (NS) 1,000 ml @ 80 mls/hr [id number] IV Last administered on 03/31 23:49; Admin Dose 80 MLS/HR; Start 03/31/17 at 23:05 Ondansetron HCl (Zofran Inj) 4 mg Q6H PRN IV NAUSEA AND/OR VOMITING; Start 03/31/17 at 23:30 Acetaminophen (Tylenol Tab) 650 mg Q6H PRN PO PAIN LEVEL 1-3 OR FEVER; Start 03/31/17 at 23:30 Pantoprazole 40 mg 40 mg BID@06,18 IV Last administered on 04/01/17 05:52; Admin Dose 40 MG; Start 03/31/17 at 23:30 Octreotide Acetate/Sodium Chloride (Sandostatin/NS) 100 ml @ 5 mls/hr Q20H IV Last administered on 04/01/17 05:52; Admin Dose 5 MLS/HR; Start 04/01/17 at 05: 00 NIKO LOUIE Apr 01, 2017 07:35 NIKO LOUIE Apr 01, 2017 07:35
[2017-04-01 08:25] LABS: ABNORMAL IP MESSAGE 1; BASOPHILS % 0.5 % (0.0-2.0); EOSINOPHILS % 0.5 % (0.0-7.0); HEMATOCRIT 26.7 % (37.0-47.0); HEMOGLOBIN 9.4 g/dl (12.0-16.0); LYMPHOCYTES # 1.5 10^3/ul (0.8-2.9); LYMPHOCYTES % 37.6 % (15.0-51.0); MEAN CORPUSCULAR HEMOGLOBIN 31.2 pg (29.0-33.0); MEAN CORPUSCULAR HGB CONC 35.2 g/dl (32.0-37.0); MEAN CORPUSCULAR VOLUME 88.7 fl (82.0-101.0); MEAN PLATELET VOLUME 10.8 fl (7.4-10.4); MONOCYTE # 0.2 10^3/ul (0.3-0.9); NEUTROPHIL # 2.1 10^3/ul (1.6-7.5); NEUTROPHILS % 55.1 % (39.0-77.0); RED BLOOD COUNT 3.01 10^6/ul (4.20-5.40); RED CELL DISTRIBUTION WIDTH 14.2 % (11.5-14.5); WHITE BLOOD COUNT 3.9 10^3/ul (4.8-10.8)
[2017-04-01 08:36] LABS: PLATELET COUNT 99 10^3/UL (140-415); POSITIVE DIFF @See below
[2017-04-01 08:52] LABS: ALBUMIN 3.4 g/dl (3.3-4.9); ALBUMIN/GLOBULIN RATIO 0.85; BILIRUBIN,INDIRECT 0.7 mg/dl (0-1.1); BILIRUBIN,TOTAL 0.7 mg/dl (0.2-1.3); CALCIUM 9.2 mg/dl (8.4-10.2); CHOL/HDL RATIO 3.8 RATIO; CREATININE 0.74 mg/dl (0.44-1.00); POTASSIUM 4.5 mmol/L (3.5-5.1); TOTAL PROTEIN 7.4 g/dl (6.1-8.1)
[2017-04-01 09:21] LABS: THYROID STIMULATING HORMONE 0.801 MIU/L (0.465-4.680)
[2017-04-01] MEDS: CEFTRIAXONE 1 GM/50 ML (PMX) 50 ML IVPB SCH (10:46)
[2017-04-01] MEDS: SOD CHLORIDE 0.9% 1,000 ML IV SCH ×2 (11:35→17:31)
[2017-04-01 11:55] LABS: ABNORMAL IP MESSAGE 1; BASOPHILS % 0.6 % (0.0-2.0); EOSINOPHILS % 0.3 % (0.0-7.0); HEMATOCRIT 26.8 % (37.0-47.0); HEMOGLOBIN 9.3 g/dl (12.0-16.0); LYMPHOCYTES # 1.3 10^3/ul (0.8-2.9); LYMPHOCYTES % 39.6 % (15.0-51.0); MEAN CORPUSCULAR HEMOGLOBIN 30.7 pg (29.0-33.0); MEAN CORPUSCULAR HGB CONC 34.7 g/dl (32.0-37.0); MEAN CORPUSCULAR VOLUME 88.4 fl (82.0-101.0); MEAN PLATELET VOLUME 10.4 fl (7.4-10.4); MONOCYTE # 0.2 10^3/ul (0.3-0.9); MONOCYTES % 6.6 % (0.0-11.0); NEUTROPHIL # 1.7 10^3/ul (1.6-7.5); NEUTROPHILS % 52.6 % (39.0-77.0); PLATELET COUNT 94 10^3/UL (140-415); RED BLOOD COUNT 3.03 10^6/ul (4.20-5.40); RED CELL DISTRIBUTION WIDTH 14.3 % (11.5-14.5); WHITE BLOOD COUNT 3.3 10^3/ul (4.8-10.8)
[2017-04-01 11:59] LABS: POSITIVE DIFF @See below
[2017-04-01] MEDS ORDERED: LIDOCAINE 2% (SDV) 5 ML INJ ONE (12:08)
[2017-04-01] MEDS ORDERED: PROPOFOL 40 ML ONE (12:08)
--- NOTE | 2017-04-01 12:11 | CONS ---
Date/Time of Note Date/Time of Note DATE: 04/01/17 TIME: 12:09 Assessment/Plan Assessment/Plan Chief Complaint/Hosp Course Assessment: GI bleeding/hematemesis and melena Rule out variceal versus known gastric ulcer versus others Moderate anemia secondary to above Cryptogenic cirrhosis Portal hypertensive gastropathy Moderate size esophageal varices Gastric ulcer November 2016 Positive H pylori, not treated Abnormal mass in liver, rule out hepatocellular carcinoma Diabetes mellitus Hypertension Dyslipidemia Poor compliance Obesity Plan: Urgent EGD possible therapeutic intervention. Procedure was explained in detail to the patient including risks, benefits alternatives. She is agreeable to proceed. Repeat MRI to reassess mass and liver Further recommendation will depend on findings . Problems: Consultation Date/Type/Reason Admit Date/Time Mar 31, 2017 at 22:09 Date of Consultation: Apr 01, 2017 Type of Consultation: GI Reason for Consultation GI bleeding/hematemesis and melena Hx of Present Illness 71-year-old female known to GI service from previous evaluation end of November 2016. At that time the patient presented with evidence of severe anemia. EGD disclose active gastric ulceration, portal hypertensive gastropathy and moderate -sized esophageal varices. Biopsies were obtained and turned out to be positive for H pylori, the patient failed follow-up and has not been treated for this. A colonoscopy done at the same time showed a small cecum tubular adenoma, moderate-sized internal hemorrhoids and mild diverticulosis. At the same time imaging discloses suspicious lesion in the liver which was evaluated by oncology, no biopsies were obtained, alpha-fetoprotein was in the 46 range, once again the patient was supposed to follow-up with me and failed to do so. At this time the patient presented to the emergency room complaining of several days of melena followed by the onset of hematemesis described as moderate amounts. The patient was evaluated and hospitalized for further management. At this point we will proceed with EGD to assess source of bleeding and potential therapeutic intervention. A CT of the abdomen without contrast has been obtained and again shows suspicious area in the liver. We will repeat MRI for comparison and reassess the possibility of guided biopsy of the lesion. Her alpha-fetoprotein is now 60. Constitutional: improved, no complaints Eyes: no complaints ENT: no complaints Respiratory: no complaints Cardiovascular: no complaints Gastrointestinal: other (See HPI), No diarrhea, No nausea, No pain, No vomiting Genitourinary: no complaints Musculoskeletal: no complaints Skin: no complaints Neurologic: no complaints Endocrine: no complaints Lymphatic: no complaints Psychological: nl mood/affect, no complaints Immunologic: no complaints Past Medical History Cryptogenic cirrhosis Portal hypertensive gastropathy Moderate size esophageal varices Gastric ulcer November 2016 Positive H pylori, not treated Abnormal mass in liver, rule out hepatocellular carcinoma Diabetes mellitus Hypertension Dyslipidemia Poor compliance Obesity Past Surgical History Past Surgical Hx: no surgical history Family History Significant Family History: no pertinent family hx Social History Alcohol Use: none Smoking Status: Never smoker Drug Use: none Exam/Review of Systems Vital Signs Vitals Vital Signs Date Time Temp Pulse Resp B/P Pulse Ox O2 Delivery O2 Flow Rate FiO2 04/01/17 11:22 98.5 55 18 112/59 98 03/31/17 21:20 Room Air 03/31/17 19:38 2 Intake and Output 03/31/17 03/31/17 04/01/17 15:00 23:00 07:00 Intake Total 455 ml Balance 455 ml Exam PHYSICAL EXAMINATION: GENERAL: Well developed, well nourished, obese, alert & oriented x 3, in no acute distress SKIN: No lesions, positive stigmata chronic liver disease, no evidence of bleeding diathesis LYMPHATIC: No palpable lymphadenopathy. HEAD: Normocephalic, atraumatic, no tenderness. EYES: Pupils equal reactive to light and accommodation, full extraocular movements, sclera clear, non-icteric, no discharge. EARS/NOSE AND THROAT: Ears normal, nose normal, oropharynx normal, oral membranes well hydrated without lesions. NECK: Supple, no masses, thyroid normal, JVP within normal limits, carotids normal without bruits. CHEST: Inspection within normal limits. CARDIOVASCULAR: Heart: Regular rate and rhythm, no murmurs, gallops or rubs. Peripheral pulses present within normal limits, no cyanosis, clubbing or edemas. No pulsatile abdominal mass RESPIRATORY: Lungs clear to auscultation and percussion, no wheezing, no rubs GASTROINTESTINAL AND LIVER: Abdomen: Soft, non tenderness, mildly distended, no hernias, no masses, no organomegaly, no ascites, no guarding, no rebound tenderness, normoactive bowel sounds. Rectal: Deferred. GENITOURINARY: [Female genitalia within normal limits.] EXTREMITIES: No cyanosis, clubbing or edema. Results Result Diagram: 04/01/17 1116 04/01/17 0740 Results 24 hrs Laboratory Tests Test 03/31/17 18:48 03/31/17 19:15 03/31/17 22:30 04/01/17 07:40 Bedside Glucose 171 120 White Blood Count 5.8 # 3.9 #L Red Blood Count 3.42 L 3.01 L Hemoglobin 10.6 L 9.4 L Hematocrit 30.9 L 26.7 L Mean Corpuscular Volume 90.4 88.7 Mean Corpuscular Hemoglobin 31.0 31.2 Mean Corpuscular Hemoglobin Concent 34.3 35.2 Red Cell Distribution Width 14.1 14.2 Platelet Count 144 99 #L Mean Platelet Volume 10.9 H 10.8 H Neutrophils % 73.4 55.1 Lymphocytes % 21.1 37.6 Monocytes % 4.5 6.0 Eosinophils % 0.2 0.5 Basophils % 0.5 0.5 Nucleated Red Blood Cells % 0.0 0.0 Neutrophils # 4.2 2.1 Lymphocytes # 1.2 1.5 Monocytes # 0.3 0.2 L Eosinophils # 0.0 0.0 Basophils # 0.0 0.0 Nucleated Red Blood Cells # 0.0 0.0 Prothrombin Time 14.8 Prothrombin Time Ratio 1.2 INR International Normalized Ratio 1.14 Activated Partial Thromboplast Time 28.4 Sodium Level 132 L 138 Potassium Level 5.5 H 4.5 Chloride Level 98 104 Carbon Dioxide Level 20 L 26 Anion Gap 20 H 13 # Blood Urea Nitrogen 26 H 20 Creatinine 0.72 0.74 Glucose Level 164 125 Calcium Level 9.1 9.2 Total Bilirubin 0.6 0.7 Direct Bilirubin 0.00 0.00 Indirect Bilirubin 0.6 0.7 Aspartate Amino Transf (AST/SGOT) 88 H 70 H Alanine Aminotransferase (ALT/SGPT) 68 66 Alkaline Phosphatase 183 H 164 H Ammonia 23 Troponin I < 0.012 Total Protein 8.1 7.4 Albumin 4.1 3.4 Globulin 4.00 H 4.00 H Albumin/Globulin Ratio 1.02 0.85 Lipase 346 H Hemoglobin A1c 7.1 H Triglycerides Level 167 H Cholesterol Level 213 H LDL Cholesterol, Calculated 124 HDL Cholesterol 56 Cholesterol/HDL Ratio 3.8 Alpha Fetoprotein 60.10 H Thyroid Stimulating Hormone (TSH) 0.801 Test 04/01/17 11:16 White Blood Count 3.3 L Red Blood Count 3.03 L Hemoglobin 9.3 L Hematocrit 26.8 L Mean Corpuscular Volume 88.4 Mean Corpuscular Hemoglobin 30.7 Mean Corpuscular Hemoglobin Concent 34.7 Red Cell Distribution Width 14.3 Platelet Count 94 L Mean Platelet Volume 10.4 Neutrophils % 52.6 Lymphocytes % 39.6 Monocytes % 6.6 Eosinophils % 0.3 Basophils % 0.6 Nucleated Red Blood Cells % 0.0 Neutrophils # 1.7 Lymphocytes # 1.3 Monocytes # 0.2 L Eosinophils # 0.0 Basophils # 0.0 Nucleated Red Blood Cells # 0.0 Medications Medications Current Medications Sodium Chloride (NS) 1,000 ml @ 80 mls/hr [id number] IV Last administered on 03/31 23:49; Admin Dose 80 MLS/HR; Start 03/31/17 at 23:05 Ondansetron HCl (Zofran Inj) 4 mg Q6H PRN IV NAUSEA AND/OR VOMITING; Start 03/31/17 at 23:30 Acetaminophen (Tylenol Tab) 650 mg Q6H PRN PO PAIN LEVEL 1-3 OR FEVER; Start 03/31/17 at 23:30 Pantoprazole 40 mg 40 mg BID@06,18 IV Last administered on 04/01/17 05:52; Admin Dose 40 MG; Start 03/31/17 at 23:30 Octreotide Acetate 1 mg/ Sodium Chloride 100 ml @ 5 mls/hr Q20H IV Last administered on 04/01/17 05:52; Admin Dose 5 MLS/HR; Start 04/01/17 at 05:00 Ceftriaxone Sodium (Rocephin) 50 ml @ 100 mls/hr Q24H IVPB Last administered on 04/01/17 10:46; Admin Dose 100 MLS/HR; Start 04/01/17 at 10:30 ENOCH LIZ MD Apr 01, 2017 12:11
--- NOTE | 2017-04-01 12:54 | OPPN ---
Date/Time of Note Date/Time of Note DATE: 04/01/17 TIME: 12:48 Proc Note GI Procedure Date 04/01/17 Indication: other (GI bleeding) Pre-procedure Diagnosis GI bleeding Post-procedure Diagnosis Impression: Grade III/IV esophageal varices Post endoscopic variceal ligation 5 Healed gastric ulcer Residual gastritis versus portal hypertensive gastropathy. Biopsies obtained to rule out H. pylori infection. Otherwise normal EGD Plan: Continue Protonix and octreotide drip for 24 hours, then switch Protonix to twice daily and discontinue octreotide Monitor H&H and transfuse for hemoglobin less than 7.5 Clear liquid diet . Procedure Performed: Endoscopy (Plus EVL. EGD with biopsies) Surgeon ENOCH LIZ MD See signature line Outdoor Emergency Care Technician none Anesthesia Type: MAC Anesthesiologist: MARIA LUISA MADRIGAL Tourniquet Time none EBL none Transfusion required none Biopsy 1: Gastric body and antrum Grafts/Implants none Tubes/Drains none Complication(s) none Disposition: PACU Procedure Description After informed consent, with the patient/relatives understanding the procedure, its indications, potential risks and complications, including but not limited to : allergic reaction, bleeding, perforation or infection, and after all pertinent questions were answered to the patients satisfaction, the patient/ relatives signed witnessed informed consent. Following this, premedication was administered slowly IV push under careful cardiovascular and respiratory monitoring with pulse oximetry, automatic blood pressure, and front desk monitor. Once the sedative effect was achieved the patient was place in the left lateral decubitus, the panendoscope was introduced and advanced under visual control. Careful examination of the upper gastrointestinal tract, both on insertion as well as withdrawal of the instrument disclosing the following findings: ESOPHAGUS: the mucosa of the entire esophagus was carefully examined and showed the following findings: There are grade III/IV esophageal varices. Upon completion of the examination endoscopic variceal ligation was applied to the most prominent varices without evidence complication. Otherwise the mucosa appears within normal limits. There is no evidence of varices, neoplasm, or stricture. No Hiatal Hernia identified. STOMACH: Upon entrance to the stomach air was insufflated, the gastric omer distended normally. The mucosa of the fundus, body and antrum of the stomach was carefully examined both head-on and on retroflexion, and showed the following findings: The previously noted gastric ulceration is completely healed. There is residual erythema edema the mucosa of a moderate degree. Biopsies were obtained to rule out H. pylori infection. (Previous biopsies were positive for H pylori, patient has not been treated). Otherwise the mucosa appears within normal limits with no abnormalities. There is no evidence of ulcers or neoplasm. PYLORUS: The pylorus was carefully examined and showed the following findings: the pylorus appears patent and within normal limits, with no evidence of gastric outlet obstruction. DUODENUM: The duodenal mucosa was carefully examined in the duodenal bulb as well as the second portion of the duodenum and showed the following findings: the mucosa appears unremarkable with no evidence of duodenitis, ulcer or neoplasm. Copies To: CC: ENOCH LIZ MD, MORDO MD Apr 01, 2017 12:54
[2017-04-01 19:23] LABS: ABNORMAL IP MESSAGE 1; BASOPHILS % 0.5 % (0.0-2.0); EOSINOPHILS % 0.8 % (0.0-7.0); HEMATOCRIT 26.2 % (37.0-47.0); LYMPHOCYTES # 1.6 10^3/ul (0.8-2.9); LYMPHOCYTES % 43.8 % (15.0-51.0); MEAN CORPUSCULAR HGB CONC 34.4 g/dl (32.0-37.0); MEAN CORPUSCULAR VOLUME 90.3 fl (82.0-101.0); MEAN PLATELET VOLUME 9.8 fl (7.4-10.4); MONOCYTE # 0.3 10^3/ul (0.3-0.9); NEUTROPHIL # 1.8 10^3/ul (1.6-7.5); NEUTROPHILS % 47.6 % (39.0-77.0); PLATELET COUNT 81 10^3/UL (140-415); RED CELL DISTRIBUTION WIDTH 14.5 % (11.5-14.5); WHITE BLOOD COUNT 3.7 10^3/ul (4.8-10.8)
[2017-04-01 19:29] LABS: POSITIVE DIFF @See below
[2017-04-02] VITALS (15 sets, daily range): BP systolic 114–149; BP diastolic 64–82; PULSE 44–59; RESP 18–20
[2017-04-02 00:37] LABS: ABNORMAL IP MESSAGE 1; BASOPHILS % 0.6 % (0.0-2.0); EOSINOPHILS # 0.1 10^3/ul (0.0-0.5); EOSINOPHILS % 1.4 % (0.0-7.0); HEMATOCRIT 27.5 % (37.0-47.0); HEMOGLOBIN 9.6 g/dl (12.0-16.0); LYMPHOCYTES # 1.7 10^3/ul (0.8-2.9); LYMPHOCYTES % 48.7 % (15.0-51.0); MEAN CORPUSCULAR HEMOGLOBIN 31.1 pg (29.0-33.0); MEAN CORPUSCULAR HGB CONC 34.9 g/dl (32.0-37.0); MEAN PLATELET VOLUME 10.5 fl (7.4-10.4); MONOCYTE # 0.2 10^3/ul (0.3-0.9); MONOCYTES % 5.7 % (0.0-11.0); NEUTROPHIL # 1.5 10^3/ul (1.6-7.5); NEUTROPHILS % 43.6 % (39.0-77.0); PLATELET COUNT 82 10^3/UL (140-415); RED BLOOD COUNT 3.09 10^6/ul (4.20-5.40); RED CELL DISTRIBUTION WIDTH 14.4 % (11.5-14.5); WHITE BLOOD COUNT 3.5 10^3/ul (4.8-10.8)
[2017-04-02] MEDS: OCTREOTIDE 1 MG in SOD CHLORIDE 0.9% 95 ML IV SCH (00:38)
[2017-04-02 00:44] LABS: POSITIVE DIFF @See below
[2017-04-02] MEDS: PANTOPRAZOLE 40 MG INJ IV SCH ×2 (06:44→17:35)
[2017-04-02] MEDS: SOD CHLORIDE 0.9% 1,000 ML IV SCH ×2 (07:02→12:35)
[2017-04-02] MEDS: CEFTRIAXONE 1 GM/50 ML (PMX) 50 ML IVPB SCH (10:47)
--- NOTE | 2017-04-02 13:38 | PN ---
Date/Time of Note Date/Time of Note DATE: 04/02/17 TIME: 13:24 Assessment/Plan VTE Prophylaxis VTE Prophylaxis Intervention: ambulation Lines/Catheters IV Catheter Type (from [facility]): Peripheral IV Urinary Cath still in place: No Assessment/Plan Chief Complaint/Hosp Course Assessment: Upper GI bleed Anemia History of PUD Status post EGD grade III/IV esophageal varices Post endoscopic variceal ligation 5 Healed gastric ulcer Residual gastritis versus portal hypertensive gastropathy. Rule out H. pylori infection. Cryptogenic cirrhosis Diabetes mellitus Dyslipidemia Plan: Continue Protonix DC octreotide drip Monitor H&H and transfuse for hemoglobin less than 7.5 Advance to regular diet Subjective: Patient is feeling well, tolerates clear liquid diet. Has mild discomfort in epigastric area. Has regular bowel movements. desires to go home. Plan of treatment explained to the family and nursing staff. Advancing diet to regular as tolerated today. Octreotide drip DC'd. Continue monitoring H&H. Patient seen in collaboration with PHYSICAL EXAMINATION: GENERAL: Well developed, obese, well nourished, alert & oriented x 3, in no acute distress SKIN: No lesions, no stigmata chronic liver disease, no evidence of bleeding diathesis LYMPHATIC: No palpable lymphadenopathy. HEAD: Normocephalic, atraumatic, no tenderness. EYES: Pupils equal reactive to light and accommodation, full extraocular movements, sclera clear, non-icteric, no discharge. EARS/NOSE AND THROAT: Ears normal, nose normal, oropharynx normal, oral membranes well hydrated without lesions. NECK: Supple, no masses, thyroid normal, JVP within normal limits, carotids normal without bruits. CHEST: Inspection within normal limits. CARDIOVASCULAR: Heart: Regular rate and rhythm, no murmurs, gallops or rubs. Peripheral pulses present within normal limits, no cyanosis, clubbing or edemas. No pulsatile abdominal mass RESPIRATORY: Lungs clear to auscultation and percussion, no wheezing, no rubs GASTROINTESTINAL AND LIVER: Abdomen: Soft, obese, mild tenderness in epigastric area, non-distended, no hernias, no masses, no organomegaly, no ascites, no guarding, no rebound tenderness, normoactive bowel sounds. Rectal: Deferred. GENITOURINARY: Female genitalia within normal limits.] EXTREMITIES: No cyanosis, clubbing or edema. Problems: Exam/Review of Systems Vital Signs Vitals Vital Signs Date Time Temp Pulse Resp B/P Pulse Ox O2 Delivery O2 Flow Rate FiO2 04/02/17 12:30 98.0 53 18 128/65 98 04/01/17 12:50 Room Air 04/01/17 12:35 2.0 Intake and Output 04/01/17 04/01/17 04/02/17 15:00 23:00 07:00 Intake Total 70 ml 1265 ml 1275 ml Balance 70 ml 1265 ml 1275 ml Results Result Diagram: 04/02/17 0022 04/01/17 0740 Results 24 hrs Laboratory Tests Test 04/01/17 19:04 04/02/17 00:22 White Blood Count 3.7 L 3.5 L Red Blood Count 2.90 L 3.09 L Hemoglobin 9.0 L 9.6 L Hematocrit 26.2 L 27.5 L Mean Corpuscular Volume 90.3 89.0 Mean Corpuscular Hemoglobin 31.0 31.1 Mean Corpuscular Hemoglobin Concent 34.4 34.9 Red Cell Distribution Width 14.5 14.4 Platelet Count 81 L 82 L Mean Platelet Volume 9.8 10.5 H Neutrophils % 47.6 43.6 Lymphocytes % 43.8 48.7 Monocytes % 7.0 5.7 Eosinophils % 0.8 1.4 Basophils % 0.5 0.6 Nucleated Red Blood Cells % 0.0 0.0 Neutrophils # 1.8 1.5 L Lymphocytes # 1.6 1.7 Monocytes # 0.3 0.2 L Eosinophils # 0.0 0.1 Basophils # 0.0 0.0 Nucleated Red Blood Cells # 0.0 0.0 Medications Medications Current Medications Sodium Chloride (NS) 1,000 ml @ 80 mls/hr [id number] IV Last administered on 04/02 07:02; Admin Dose 80 MLS/HR; Start 03/31/17 at 23:05 Ondansetron HCl (Zofran Inj) 4 mg Q6H PRN IV NAUSEA AND/OR VOMITING; Start 03/31/17 at 23:30 Acetaminophen (Tylenol Tab) 650 mg Q6H PRN PO PAIN LEVEL 1-3 OR FEVER; Start 03/31/17 at 23:30 Pantoprazole 40 mg 40 mg BID@06,18 IV Last administered on 04/02/17 06:44; Admin Dose 40 MG; Start 03/31/17 at 23:30 Octreotide Acetate 1 mg/ Sodium Chloride 100 ml @ 5 mls/hr Q20H IV Last administered on 04/02/17 00:38; Admin Dose 5 MLS/HR; Start 04/01/17 at 05:00 Ceftriaxone Sodium (Rocephin) 50 ml @ 100 mls/hr Q24H IVPB Last administered on 04/02/17 10:47; Admin Dose 100 MLS/HR; Start 04/01/17 at 10:30 Copies To: CC: ENOCH LIZ MD, ANASTASIA NP Apr 02, 2017 13:34
--- NOTE | 2017-04-02 14:36 | PN ---
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 Bleeding resolved, stable Variceal bleed: - Monitor H/H for stability, clinically resolved - s/p EGD 04/01/ with variceal banding - Continue abx x 5 days for cirrhotic UGI bleeding - Protonix ggt - Advance diet per GI Cryptogenic cirrhosis: - Stable, no need for diuretics or lactulose. Further management as outpatient. Encouraged to establish care with a liver specialist Discharge to home in coming 1-2 days if H/H stable Problems: Subjective 24 Hr Interval Summary Free Text/Dictation Underwent EGD with banding of numerous high grade esophageal varices Feels well today, no further bleeding I discussed at length with patient and her family the diagnosis of cirrhosis. They were confused how she has liver disease if she wasn't a drinker. 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 as transplant is only curative modality Exam/Review of Systems Vital Signs Vitals Vital Signs Date Time Temp Pulse Resp B/P Pulse Ox O2 Delivery O2 Flow Rate FiO2 04/02/17 12:30 98.0 53 18 128/65 98 04/01/17 12:50 Room Air 04/01/17 12:35 2.0 Intake and Output 04/01/17 04/01/17 04/02/17 15:00 23:00 07:00 Intake Total 70 ml 1265 ml 1275 ml Balance 70 ml 1265 ml 1275 ml Exam Constitutional: alert, oriented, well developed Psych: nl mood/affect, no complaints Head: atraumatic, normocephalic Eyes: EOMI, PERRL, nl conjunctiva, nl lids, nl sclera ENMT: nl external ears & nose, nl lips & teeth, nl nasal mucosa & septum Neck: non-tender, supple Respiratory: clear to auscultation, normal air movement Cardiovascular: nl pulses, regular rate and rhythm Gastrointestinal: nl liver, spleen, non-tender, soft Musculoskeletal: nl extremities to inspection, nl gait and stance Extremities: normal pulses 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, nl mental status, nl speech, nl strength Skin: nl turgor, No rash or lesions Lymph: nl lymph nodes Results Result Diagram: 04/02/17 0022 04/01/17 0740 Results 24 hrs Laboratory Tests Test 04/01/17 19:04 04/02/17 00:22 White Blood Count 3.7 L 3.5 L Red Blood Count 2.90 L 3.09 L Hemoglobin 9.0 L 9.6 L Hematocrit 26.2 L 27.5 L Mean Corpuscular Volume 90.3 89.0 Mean Corpuscular Hemoglobin 31.0 31.1 Mean Corpuscular Hemoglobin Concent 34.4 34.9 Red Cell Distribution Width 14.5 14.4 Platelet Count 81 L 82 L Mean Platelet Volume 9.8 10.5 H Neutrophils % 47.6 43.6 Lymphocytes % 43.8 48.7 Monocytes % 7.0 5.7 Eosinophils % 0.8 1.4 Basophils % 0.5 0.6 Nucleated Red Blood Cells % 0.0 0.0 Neutrophils # 1.8 1.5 L Lymphocytes # 1.6 1.7 Monocytes # 0.3 0.2 L Eosinophils # 0.0 0.1 Basophils # 0.0 0.0 Nucleated Red Blood Cells # 0.0 0.0 Medications Medications Current Medications Sodium Chloride (NS) 1,000 ml @ 80 mls/hr [id number] IV Last administered on 04/02 07:02; Admin Dose 80 MLS/HR; Start 03/31/17 at 23:05 Ondansetron HCl (Zofran Inj) 4 mg Q6H PRN IV NAUSEA AND/OR VOMITING; Start 03/31/17 at 23:30 Acetaminophen (Tylenol Tab) 650 mg Q6H PRN PO PAIN LEVEL 1-3 OR FEVER; Start 03/31/17 at 23:30 Pantoprazole 40 mg 40 mg BID@06,18 IV Last administered on 04/02/17 06:44; Admin Dose 40 MG; Start 03/31/17 at 23:30 Ceftriaxone Sodium (Rocephin) 50 ml @ 100 mls/hr Q24H IVPB Last administered on 04/02/17 10:47; Admin Dose 100 MLS/HR; Start 04/01/17 at 10:30 NOHEMY GONZALEZ MD Apr 02, 2017 14:36
[2017-04-03] VITALS (9 sets, daily range): BP systolic 103–139; BP diastolic 47–68; PULSE 46–70; RESP 18–19
[2017-04-03] MEDS: PANTOPRAZOLE 40 MG INJ IV SCH (06:13)
[2017-04-03] MEDS: CEFTRIAXONE 1 GM/50 ML (PMX) 50 ML IVPB SCH (09:48)
--- NOTE | 2017-04-03 11:10 | PDOCDIS ---
Discharge Instructions CONDITION Patient Condition: Good HOME CARE INSTRUCTIONS: Diet Instructions: Reduced Sodium ACTIVITY: Activity Restrictions: No Restrictions FOLLOW UP/APPOINTMENTS Follow-up Plan F/U WITH YOUR PCP IN 1-2 WEEKS, F/U WITH A LIVER SPECIALIST TERRI CARDOZA Apr 03, 2017 11:10
[2017-04-03] MEDS ORDERED: CIPR500T4 PO (11:28)
--- NOTE | 2017-04-03 13:33 | PN ---
Date/Time of Note Date/Time of Note DATE: 04/03/17 TIME: 13:17 Assessment/Plan VTE Prophylaxis VTE Prophylaxis Intervention: SCD's Lines/Catheters IV [facility] Type (from [facility] Saline Lock Urinary Cath still in place: No Assessment/Plan Chief Complaint/Hosp Course Assessment: Upper GI bleed Anemia History of PUD Status post EGD grade III/IV esophageal varices Post endoscopic variceal ligation 5 Healed gastric ulcer Residual gastritis versus portal hypertensive gastropathy. Rule out H. pylori infection. Cryptogenic cirrhosis Diabetes mellitus Dyslipidemia Plan: Advance diet Change PPI from IV to PO Monitor H&H and transfuse for hemoglobin less than 7.5 Patient seen in collaboration with Subjective: Course reviewed with nursing staff Patient interviewed and examined All labs, imaging and other results reviewed The patient feels well, currently denies any pain. Will increase diet and change PPI from IV to PO. AFP 60.1 ct without contrast shows unchanged mass to right lobe of the liver. Pt to f/u with GI as an outpatient for further work-up. PHYSICAL EXAMINATION: GENERAL: Well developed, obese, well nourished, alert & oriented x 3, in no acute distress SKIN: No lesions, no stigmata chronic liver disease, no evidence of bleeding diathesis LYMPHATIC: No palpable lymphadenopathy. HEAD: Normocephalic, atraumatic, no tenderness. EYES: Pupils equal reactive to light and accommodation, full extraocular movements, sclera clear, non-icteric, no discharge. EARS/NOSE AND THROAT: Ears normal, nose normal, oropharynx normal, oral membranes well hydrated without lesions. NECK: Supple, no masses, thyroid normal, JVP within normal limits, carotids normal without bruits. CHEST: Inspection within normal limits. CARDIOVASCULAR: Heart: Regular rate and rhythm, no murmurs, gallops or rubs. Peripheral pulses present within normal limits, no cyanosis, clubbing or edemas. No pulsatile abdominal mass RESPIRATORY: Lungs clear to auscultation and percussion, no wheezing, no rubs GASTROINTESTINAL AND LIVER: Abdomen: Soft, obese, mild tenderness in epigastric area, non-distended, no hernias, no masses, no organomegaly, no ascites, no guarding, no rebound tenderness, normoactive bowel sounds. Rectal: Deferred. GENITOURINARY: Female genitalia within normal limits. EXTREMITIES: No cyanosis, clubbing or edema. Problems: Exam/Review of Systems Vital Signs Vitals Vital Signs Date Time Temp Pulse Resp B/P Pulse Ox O2 Delivery O2 Flow Rate FiO2 04/03/17 12:21 70 04/03/17 11:55 97.9 19 139/62 99 04/01/17 12:50 Room Air 04/01/17 12:35 2.0 Intake and Output 04/02/17 04/02/17 04/03/17 15:00 23:00 07:00 Intake Total 680 ml 750 ml 350 ml Balance 680 ml 750 ml 350 ml Results Result Diagram: 04/02/17 0022 04/01/17 0740 Medications Medications Current Medications Ondansetron HCl (Zofran Inj) 4 mg Q6H PRN IV NAUSEA AND/OR VOMITING; Start 03/31/17 at 23:30 Acetaminophen (Tylenol Tab) 650 mg Q6H PRN PO PAIN LEVEL 1-3 OR FEVER; Start 03/31/17 at 23:30 Pantoprazole 40 mg 40 mg BID@06,18 IV Last administered on 04/03/17 06:13; Admin Dose 40 MG; Start 03/31/17 at 23:30 Ceftriaxone Sodium (Rocephin) 50 ml @ 100 mls/hr Q24H IVPB Last administered on 04/03/17 09:48; Admin Dose 100 MLS/HR; Start 04/01/17 at 10:30 TYSHAWN RICARDO Apr 03, 2017 13:27
[2017-04-03] MEDS ORDERED: PANTOPRAZOLE (EC) 40 MG TAB PO SCH (18:00)
--- NOTE | 2017-04-03 18:14 | DS ---
Date/Time of Note Date/Time of Note DATE: 04/03/17 TIME: 18:08 Discharge Summary Admission/Discharge Info Admit Date/Time Mar 31, 2017 at 22:09 Discharge Date/Time April 03, 2017 Discharge Diagnosis 1. Variceal bleed-resolved s/p EGD 04/01/ with variceal banding DC with Cipro for cirrhotic UGI bleeding SBP prophylaxis 2. Cryptogenic cirrhosis - Stable, no need for diuretics or lactulose. Further management as outpatient. Encouraged to establish care with a liver specialist Patient Condition: Good Hospital Course Patient is a 71-year-old woman with a history of idiopathic cirrhosis and previous gastrointestinal bleeding presents with melena 3-4 days and hematemesis 1. She was seen by GI and underwent EGD which she had variceal banding. Patient was started on antibiotics for SBP prophylaxis. Patient did not require any blood transfusion the patient was ultimately felt to be stable for DC. Of note patient also states that she was seen by hematology during her last visit and she was told that she needed to have biopsy done. She just recently established care with her primary care doctor. Patient was told that she needs to follow-up with a liver specialist for further workup of her cirrhosis. On the day of discharge patient's vitals, labs physical exam are stable she had no acute complaints questions are answered Home Meds Active Scripts Ciprofloxacin Hcl* (Ciprofloxacin Hcl*) 500 Mg Tablet, 500 MG PO BID for 4 Days , #8 TAB Prov:TERRI CARDOZA 04/03/17 Ferrous Sulfate* (Ferrous Sulfate*) 325 Mg Tabec, 325 MG PO BID, #60 TAB Prov:MARVA MENA NP 01/06/17 Reported Medications Docusate Sodium* (Doc-Q-Lace*) 100 Mg Capsule, 100 MG PO BID Y for CONSTIPATION , CAP 03/31/17 Ascorbic Acid (Vitamin C) 500 Mg Tab, 500 MG PO DAILY, TAB 03/31/17 Blaine-3S/Dha/Epa/Fish Oil (Fish Oil Blaine-3 Softgel) 1 Each Capsule., 1 EACH PO BID 03/31/17 Acetaminophen (Mapap) 500 Mg Capsule, 500 MG PO Q6H Y for PAIN, CAP TAKE 1 OR 2 CAP-Q6H 03/31/17 Omeprazole* (Omeprazole*) 40 Mg Capsule., 40 MG PO DAILY, #30 CAP 03/31/17 Lisinopril* (Lisinopril*) 20 Mg Tablet, 20 MG PO DAILY, #30 TAB 03/31/17 Donepezil* (Donepezil*) 5 Mg Tablet, 5 MG PO DAILY, #30 TAB 03/31/17 Metformin Hcl* (Metformin Hcl*) 500 Mg Tablet, 1000 MG PO WITH BREAKFAST DINNE, #60 TAB 03/31/17 Discontinued Scripts Metformin Hcl (Glucophage) 500 Mg Tablet, 500 MG PO BID WITH MEALS, #60 TAB Prov:MARVA MENA NP 01/06/17 Pantoprazole* (Pantoprazole*) 40 Mg Tablet.dr, 40 MG PO BID@, #75 LAST DOSE 02/11/17 Prov:MARVA MENA NP 01/06/17 [Accu-Chek] 1 EA EA No Conflict Check, 1 EA XX BID Prov:MARVA MENA NP 01/06/17 Clarithromycin* (Biaxin*) 500 Mg Tablet, 500 MG PO BID for 11 Days, TAB stop date 01/17/17 Prov:MARVA MENA NP 01/06/17 Amoxicillin* (Amoxicillin*) 500 Mg Cap, 1000 MG PO BID for 11 Days, CAP stop date 01/17/17 Prov:MARVA MENA NP 01/06/17 Follow-up Plan F/U WITH YOUR PCP IN 1-2 WEEKS, F/U WITH A LIVER SPECIALIST Primary Care Provider [facility] Time spent on discharge: > 30 minutes TERRI CARDOZA Apr 03, 2017 18:14
== END 2017-04-03 18:40 | disposition home or self-care (01) | DRG 432 ==
LOC: E/R 17:40 → TEL 21:53
PROVIDERS: ADMIT Family Medicine; ATTEND Family Medicine
PROC: 0DB78ZX Excision of Stomach, Pylorus, Via Natural or Artificial Opening Endoscopic, Diagnostic (ICD-10-PCS; 2017-04-01)
PROC: 0W3P8ZZ Control Bleeding in Gastrointestinal Tract, Via Natural or Artificial Opening Endoscopic (ICD-10-PCS; principal; 2017-04-01 12:30)
PROC: 0DB68ZX Excision of Stomach, Via Natural or Artificial Opening Endoscopic, Diagnostic (ICD-10-PCS; 2017-04-01 12:30)
DX: K74.60 Unspecified cirrhosis of liver (principal); I85.11 Secondary esophageal varices with bleeding; K92.0 Hematemesis; K76.6 Portal hypertension; K92.1 Melena; E11.9 Type 2 diabetes mellitus without complications; D64.9 Anemia, unspecified; D49.0 Neoplasm of unspecified behavior of digestive system; I10 Essential (primary) hypertension; E78.5 Hyperlipidemia, unspecified; E66.9 Obesity, unspecified; Z68.32 Body mass index [BMI] 32.0-32.9, adult; K31.89 Other diseases of stomach and duodenum; K29.70 Gastritis, unspecified, without bleeding; Z91.14 Patient's other noncompliance with medication regimen; Z87.11 Personal history of peptic ulcer disease; Z79.4 Long term (current) use of insulin
CPT/HCPCS: 36415; 71010; 74176; 80053; 80061; 82105; 82140; 82962; 83036; 83690; 84443; 84484; 85025; 85610; 85730; 86850; 86900; 86901; 88305; 88312; 93005; 96374; 96375; 96376; C9113; J0696; J2354; J7030

== ENCOUNTER 2018-02-01 19:33 | Emergency (ER) | END 2018-02-01 20:47 | disposition home or self-care (01) ==